=== PATIENT | male | born 1955 | race Caucasian/White ===

== ENCOUNTER 2016-08-22 12:06 | Inpatient (IN) | payer OTHER, MEDICARE ==
[~2016-08-22] VITALS: Ht 177.8 cm; Wt 83.9 kg
--- NOTE | 2016-08-22 12:15 | NUR ---
INFORMED WAITING PERFORMED.
--- NOTE | 2016-08-22 12:40 | NUR ---
PT TO TRIAGE WITH RIGHT LEG PAIN AND WEAKNESS SINCE MONDAY. PT HAS A HX OF MS AND WAS SEEN AT [facility], AND [facility] FOR THE SAME THIS WEEK. PT STATES HIS URINE HAS BEEN VERY DARK
--- NOTE | 2016-08-22 12:53 | NUR ---
PT'S SON WOULD LIKE TO SPEAK TO CASE MANAGEMENT STAFF REGARDING REHAB FACILITY FOR FATHER.
--- NOTE | 2016-08-22 13:16 | NUR ---
SON WHEELING PT OUTSIDED FOR CIGARETTE.
--- NOTE | 2016-08-22 15:13 | NUR ---
7533 CARE OF PATIENT ASSUMED. PT NEEDS TOTAL ASSISTANCE TO GET OUT OF WHEELCHAIR INTO THE STRETCHER. PT FOUND TO HAVE LARGE AREA OF REDNESS ON RIGHT GROIN. HOT TO TOUCH. IV PLACED, BLOOD CULTURES DONE. NS INFUSED. SON AT BEDSIDE.
--- NOTE | 2016-08-22 15:20 | ED GENERAL ADULT ---
History of Present Illness General Chief Complaint: General Adult Stated Complaint: BIBA FOR MS FLARE UP IN R LEG Source: patient Exam Limitations: poor historian Vital Signs & Intake/Output Vital Signs & Intake/Output Vital Signs Date Time Temp Pulse Resp B/P B/P Pulse O2 O2 Flow FiO2 Mean Ox Delivery Rate 08/22 2107 99 Nasal 3.0L Cannula 08/22 1622 99.9 101 18 140/71 96 Room Air 08/22 1444 101.3 128 20 153/79 Room Air 08/22 1238 98.5 128 16 149/76 98 Room Air Room Air Allergies Coded Allergies: No Known Allergies (08/22/16) Reconcile Medications Baclofen 10 MG TABLET 1 TAB PO 4 TIMES/DAY MUSCLE SPASMS (Reported) Triage Note: PT TO TRIAGE WITH RIGHT LEG PAIN AND WEAKNESS SINCE MONDAY. PT HAS A HX OF MS AND WAS SEEN AT [facility], AND [place] FOR THE SAME THIS WEEK. PT STATES HIS URINE HAS BEEN VERY DARK Triage Nurses Notes Reviewed? yes Onset: Abrupt Duration: day(s):, constant, continues in ED, getting worse Timing: recent history Injury Environment: home No Modifying Factors: none HPI: 60-year-old male comes into the emergency room for further evaluation of MS exacerbation. Patient denies any other past medical history. He's been increasingly weak recently. He was seen at [facility] on Monday night. Patient was given a dose of steroids as well as some Valium and sent home and told to follow-up at [facility]. He spoke with his MS doctor who told him to come to the hospital. Denies any cough chills fever. Upon review of systems patient did complain of some pain to his right upper leg Which has been going on recently. (NAVIN STROUD) Past History Travel History Traveled to [place] past 21 day No Medical History Any Pertinent Medical History? 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 No (NAVIN STROUD) Review of Systems Review of Systems Constitutional: Reports: see HPI. EENTM: Reports: no symptoms. Respiratory: Reports: no symptoms. Cardiovascular: Reports: no symptoms. GI: Reports: no symptoms. Genitourinary: Reports: no symptoms. Musculoskeletal: Reports: see HPI. Skin: Reports: see HPI. Neurological/Psychological: Reports: no symptoms. Hematologic/Endocrine: Reports: no symptoms. Immunologic/Allergic: Reports: no symptoms. All Other Systems: Reviewed and Negative (NAVIN STROUD) Physical Exam Physical Exam General Appearance: alert, awake, moderate distress Head: atraumatic Eyes: Bilateral: normal appearance. Ears, Nose, Throat: normal pharynx, normal ENT inspection Neck: normal inspection Respiratory: normal breath sounds, no respiratory distress Cardiovascular: tachycardia Gastrointestinal: soft, non-tender Neurologic/Psych: awake, alert, oriented x 3 Skin: rash, PATIENT HAS SEVERE ERYTHEMA AND WARMTH TO RIGHT INNER THIGH EXTENDING UP TO INTO HIS RIGHT GROIN WELL HIS TESTICLES, TENDERNESS WITH PALPATION, WELL DEMARCATED BORDERS, Lymphatic: inguinal node tender (R) Core Measures ACS in differential dx? No CVA/TIA Diagnosis: No Severe Sepsis Present: No Septic Shock Present: No (NAVIN STROUD) Progress Differential Diagnoses I considered the following diagnoses in my evaluation of the patient: Cellulitis, necrotizing fasciitis, pedro gangrene, sepsis, Plan of Care: Orders Procedure Date/time Status Nothing by Mouth 08/23 B Active PHOSPHORUS 08/23 06 Active HEPATIC FUNCTION PANEL 08/23 06 Active CBC WITHOUT DIFFERENTIAL 08/23 06 Active BASIC ELECTROLYTES PLUS BUN&CR 08/23 06 Active VRE ACTIVE SURVIELLANCE 08/22 2118 Active ACTIVE SURVEILLANCE NARES 08/22 2118 Active Wound Care/Dressing 08/22 2105 Active Weight 08/22 2105 Active VTE Mechanical Prophylaxis 08/22 2105 Active Vital Signs 08/22 2105 Active Turn and Reposition 08/22 2105 Active Drains/Tubes 08/22 2105 Active Teach/Educate 08/22 2105 Active Skin Integrity Protocol 08/22 2105 Active Skin/Pressure Ulcer Assess (Sk 08/22 2105 Active Precautions 08/22 2105 Active Pain Treatment and Response 08/22 2105 Active Nutritional Intake, Monitor 08/22 2105 Active Isolation 08/22 2105 Active CIWA 08/22 2105 Active Patient Care Conference 08/22 2105 Active Activity/Ambulation 08/22 2105 Active PROTHROMBIN TIME 08/22 2049 Active FIBRIN SPLIT PRODUCTS 08/22 2049 Active FIBRINOGEN LEVEL 08/22 2049 Active D-DIMER 08/22 2049 Active ICU LAB BUNDLE 08/22 1954 Active CBC WITHOUT DIFFERENTIAL 08/22 1954 Active ARTERIAL BLOOD GAS (GEN) 08/22 1953 Active CULTURE,URINE 08/22 184 Active MISCELLANEOUS OR SPEC 08/22 184 Active LACTIC ACID 08/22 174 Active Lab Add-on Test 08/22 174 Active Pathway - chart 08/22 165 Active House Staff 08/22 165 Active Patient Data 08/22 165 Active Code Status 08/22 165 Active EKG 08/22 164 Active TYPE & SCREEN (NOT X-MATCH) 08/22 164 Complete Intake & Output 08/22 1630 Active Add-on Test (ER Only) 08/22 1625 Active PARTIAL THROMBOPLASTIN TIME 08/22 1454 Complete PROTHROMBIN TIME 08/22 1454 Complete PHOSPHORUS 08/22 1454 Complete MAGNESIUM 08/22 1454 Complete ETHANOL 08/22 1454 Complete C-REACTIVE PROTEIN 08/22 1454 Complete BLOOD CULTURE 08/22 1442 Active LACTIC ACID 08/22 1442 Complete URINALYSIS 08/22 1303 Complete COMPREHENSIVE METABOLIC PANEL 08/22 1240 Complete CBC WITHOUT DIFFERENTIAL 08/22 1240 Complete Lab Add-on Test 08/22 UNK Active VTE Mechanical Prophylaxis 08/22 UNK Complete Restraint- Medical 08/22 UNK Complete CIWA 08/22 UNK Active Current Medications Sig/Newton Start time Last Medication Dose Stop Time Status Admin Vancomycin HCl 1,000 MG DAILY 08/23 1000 CAN Sodium Chloride 250 ML (Normal Saline 0.9%) Meropenem 1 GM IQ8 08/23 0000 AC (MEROPENEM) Vancomycin HCl 1,000 MG Q12 08/22 2200 AC Sodium Chloride 250 ML (Normal Saline 0.9%) Pantoprazole Sodium 40 MG DAILY 08/22 2048 UNVr (Protonix) Laboratory Tests 08/22/162019: pH 7.35, pCO2 37, pO2 96, HCO3 20 L, ABG O2 Sat (Measured) 95.0 L, P-50 (Temp Corrected) N, Carboxyhemoglobin 1.5, O2 Concentration % 50%, Temperature 97.8, O2 Delivery Method ESPRIT, Vent Mode CPAP, Expiratory Pressure 5, Pressure Support 6, Phlebotomy Draw Site [place] 08/22/16 1510: Urinalysis MOD H, Urine Color ORANG H, Urine Clarity HAZY H, Urine pH 6.0, Ur Specific Buhl 1.025, Urine Protein 100 H, Urine Ketones 15 H, Urine Nitrite NEG, Urine Bilirubin NEG@ICTO, Urine Urobilinogen >=8.0 H, Ur Leukocyte Esterase NEG, Ur Microscopic SEDIMENT EXAMINED, Urine RBC 10-15 H, Urine WBC RARE, Ur Epithelial Cells RARE, Urine Bacteria FEW H, Urine Mucus MOD H, Urine Hemoglobin MOD H, Urine Glucose NEG 08/22/16 1454: Lactic Acid 1.4 08/22/16 1454: Anion Gap 11, Estimated GFR > 60, BUN/Creatinine Ratio 21.4, Glucose 106 H, Calcium 8.6, Phosphorus 2.3 L, Magnesium 1.8, Total Bilirubin 3.7 H, AST 103 H, ALT 144 H, Alkaline Phosphatase 108, C-Reactive Prot, Quant > 9.0 H, Total Protein 6.7, Albumin 3.6, Globulin 3.1, Albumin/Globulin Ratio 1.2, PT 13.1 H, INR 1.25 H, APTT 30, CBC w Diff MAN DIFF ORDERED, RBC 5.86, MCV 79.6 L, MCH 26.8 L, RDW 14.2, MPV 8.4, Gran % 95.2 H, Lymphocytes % 1.5 L, Monocytes % 3.3, Eosinophils % 0, Basophils % 0 L, Absolute Granulocytes 16.9 H, Segmented Neutrophils 84 H, Band Neutrophils 9 H, Absolute Lymphocytes 0.3 L, Lymphocytes 3 L, Monocytes 4, Absolute Monocytes 0.6, Absolute Eosinophils 0, Absolute Basophils 0, Platelet Estimate DECREASED, Hypochromic-Microcytic 1+, Microcytic Cells 1+, PUBS MCHC 33.7, Serum Alcohol < 10.0 Microbiology 08/22 2118 UPPER RESP: Surveillance Culture - ORD 08/22 2118 GI: Surveillance Culture - ORD 08/22 1854 MISC O.R.: Miscellaneous Culture - RECD 08/22 1854 MISC O.R.: Gram Stain - RECD 08/22 184 URINE ROUT: Urine Culture - RECD 08/22 1500 BLOOD: Blood Culture - RECD 08/22 1454 BLOOD: Blood Culture - RECD PATIENT SEEN AND EVALUATED WITH PA AT BEDSIDE. CLINICAL PICTURE/EXAM CONSISTENT WITH PEDRO'S. CT SCAN PENDING. BROAD SPECTRUM AB ORDERED. CT C/W AIR IN TISSUES. DR BECKER CONSULTED. TO GO TO OR FOR DEBRIDEMENT. (NEO DYE,ELI) Diagnostic Imaging: Viewed by Me: CT Scan. Discussed w/RAD: CT Scan. Radiology Impression: SERVICE DATE: 08/22/16 EXAM TYPE: CAT - CT PELVIS W IV CONTRAST EXAMINATION: CT PELVIS WITH IV CONTRAST CLINICAL INFORMATION: Pain, swelling and redness. Evaluate for abscess of right groin. COMPARISON: None TECHNIQUE: Multidetector CT imaging of the pelvis (and thighs) is performed from the level of the top of the iliac crests to the knees with intravenous administration of 94 mL of Optiray 320 nonionic contrast material. DLP: 406 mGy- cm FINDINGS: Pelvis: Atherosclerotic calcification of the visualized abdominal aorta and iliac arteries without aneurysm. No pathologic sized iliac lymph nodes. Mildly enlarged right inguinal lymph nodes measure up to 1 cm short axis dimension. The visualized loops of bowel are normal in size. No pelvic free fluid. Prostate gland, which has central calcification, is normal in size. Urinary bladder has normal wall thickness. Intervertebral chondrocalcinosis at L4-L5 and L5-S1 with vacuum disc degeneration of L5-S1. There is chondrocalcinosis of the minimally degenerated pubic symphysis and hips. No hip joint effusion. Thighs: The external iliac, common femoral, superficial femoral and profunda femoris arteries are widely patent. Scattered calcific atherosclerotic plaque of the right femoral artery produces mild, irregular luminal narrowing. No evidence of focal high-grade femoral or popliteal artery stenosis. There is skin thickening, subcutaneous tissue edema and subcutaneous gas of the proximal, medial right thigh extending to the right gluteal fold, posteriorly, overlying the distal right gluteus dash muscle. There is no evidence of extension of the inflammatory process into the deep, intramuscular tissues. The soft tissue emphysema is seen in a region that measures up to 5.5 cm craniocaudal and 14.2 cm AP. No focal, rim-enhancing fluid collection. The femurs are intact; no osseous erosion or periostitis. There are bone islands of each proximal femur. IMPRESSION: Skin thickening, subcutaneous tissue edema and emphysema of the medial right thigh. Findings suggest presence of cellulitis and necrotizing fasciitis. There is no focal, walled off fluid collection. Mild reactive lymphadenopathy is present in the right groin. Note: Critical findings discussed by telephone with Navin Dawkins at 4:30 PM. 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 Transport To: [facility] (NAVIN STROUD) PA/REAL ESTATE SPECIALIST Co-Sign Statement Statement: ED Attending supervision documentation- [X] I saw and evaluated the patient. I have also reviewed all the pertinent lab results and diagnostic results. I agree with the findings and the plan of care as documented in the PA's/REAL ESTATE SPECIALIST's documentation. [X] I have reviewed the ED Record and agree with the PA's/REAL ESTATE SPECIALIST's documentation. [] Additions or exceptions (if any) to the PAs/REAL ESTATE SPECIALIST's note and plan are summarized below: [] (ELI LARSON MD) Critical Care Note Critical Care Note Critical Care Time: 30-74 min (60) (NAVIN STROUD)
[2016-08-22 15:35] LABS: ABSOLUTE BASOPHIL COUNT 0 /CUMM (0.0-0.2); ABSOLUTE EOSINOPHIL COUNT 0 /CUMM (0.0-0.7); ABSOLUTE GRANULOCYTE CT 16.9 /CUMM (1.4-6.5); ABSOLUTE LYMPH COUNT 0.3 /CUMM (1.2-3.4); ABSOLUTE MONOCYTE COUNT 0.6 /CUMM (0.10-0.60); BASOPHIL % 0 % (0.0-2.0); EOSINOPHIL % 0 % (0-5); GRANULOCYTE % 95.2 % (42.2-75.2); HEMATOCRIT 46.7 % (42-52); MEAN CORPUSCULAR HGB 26.8 PG (27.0-31.0); MEAN CORPUSCULAR HGB CONC 33.7 G/DL (33.0-37.0); MEAN CORPUSCULAR VOLUME 79.6 FL (80.0-94.0); MEAN PLATELET VOLUME 8.4 FL (7.4-10.4); RBC DISTRIBUTION WIDTH 14.2 % (11.5-14.5); RED BLOOD CELL CT 5.86 /CUMM (4.70-6.10); WHITE BLOOD CELL COUNT 17.8 /CUMM (4.8-10.8)
[2016-08-22] MEDS ORDERED: BACLOFEN10 M1 PO (15:47)
[2016-08-22 15:53] LABS: PLATELET COUNT 31 /CUMM (130-400)
--- NOTE | 2016-08-22 16:24 | NUR ---
PATIENT RESTING QUIETLY AND OFFERS NO C/O. IVF ARE INFUSING W/O DIFFICULTY. MONITOR FOR CHANGES IN STATUS.
--- NOTE | 2016-08-22 16:37 | CT SCAN REPORT ---
EXAMINATION: CT PELVIS WITH IV CONTRAST CLINICAL INFORMATION: Pain, swelling and redness. Evaluate for abscess of right groin. COMPARISON: None TECHNIQUE: Multidetector CT imaging of the pelvis (and thighs) is performed from the level of the top of the iliac crests to the knees with intravenous administration of 94 mL of Optiray 320 nonionic contrast material. DLP: 406 mGy-cm FINDINGS: Pelvis: Atherosclerotic calcification of the visualized abdominal aorta and iliac arteries without aneurysm. No pathologic sized iliac lymph nodes. Mildly enlarged right inguinal lymph nodes measure up to 1 cm short axis dimension. The visualized loops of bowel are normal in size. No pelvic free fluid. Prostate gland, which has central calcification, is normal in size. Urinary bladder has normal wall thickness. Intervertebral chondrocalcinosis at L4-L5 and L5-S1 with vacuum disc degeneration of L5-S1. There is chondrocalcinosis of the minimally degenerated pubic symphysis and hips. No hip joint effusion. Thighs: The external iliac, common femoral, superficial femoral and profunda femoris arteries are widely patent. Scattered calcific atherosclerotic plaque of the right femoral artery produces mild, irregular luminal narrowing. No evidence of focal high-grade femoral or popliteal artery stenosis. There is skin thickening, subcutaneous tissue edema and subcutaneous gas of the proximal, medial right thigh extending to the right gluteal fold, posteriorly, overlying the distal right gluteus dash muscle. There is no evidence of extension of the inflammatory process into the deep, intramuscular tissues. The soft tissue emphysema is seen in a region that measures up to 5.5 cm craniocaudal and 14.2 cm AP. No focal, rim-enhancing fluid collection. The femurs are intact; no osseous erosion or periostitis. There are bone islands of each proximal femur. IMPRESSION: Skin thickening, subcutaneous tissue edema and emphysema of the medial right thigh. Findings suggest presence of cellulitis and necrotizing fasciitis. There is no focal, walled off fluid collection. Mild reactive lymphadenopathy is present in the right groin. Note: Critical findings discussed by telephone with Talha Dawkins at 4:30 PM.
[2016-08-22 16:52] LABS: PT 13.1 SEC (9.4-12.5); PTT 30 SEC (25-37)
--- NOTE | 2016-08-22 16:56 | History & Physical ---
NIKKI GORDON MD 08/22/16 4396: General Information and HPI MD Statement: I have seen and personally examined SANDRA PANIAGUA and documented this H&P. The patient is a 60 year old M who presented with a patient stated chief complaint of [bilateral leg weakness]. Source of Information: patient, old records History of Present Illness: Patient is a 60-year-old male with a past medical history of multiple sclerosis follows up with Dr. Novoa presented to the [facility] with bilateral leg weakness and stiffness. The patient's symptoms started on Monday when his leg was more week and he went to [facility] and the liver there was treated with IV Solu-Medrol for MS exacerbation and was given prednisone taper and instructions to follow-up with Dr. Ray and [facility]. The son was then brought in to the hospital by his son for bilateral leg weakness. On further examination it was noted that the patient GROIN had right- sided groin redness and swelling. The right side groin also had a pimple which had purulent and gas coming out on pressing. The patient also noted shakes and chills on Monday morning but did not seek any medical advice. The patient denies any recent trauma to the groin, or did not seek any discharge. 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 Home Services at Home: None Primary Language: French Smoking Status: Never Smoked ETOH Use: alcoholic, drinks 6 packs a day Illicit Drug Use: denies illicit drug use Review of Systems Review of Systems Constitutional: Reports: see HPI. Cardiovascular: Reports: see HPI. GI: Denies: diarrhea, bowel incontinence, melena, nausea, bloody stool. Genitourinary: Denies: dysuria, frequency, hematuria, hesitation, nocturia. Skin: Reports: change in skin color, change in hair/nails, erythema, rash. Exam & Diagnostic Data Last 24 Hrs of Vital Signs/I&O Vital Signs Date Time Temp Pulse Resp B/P B/P Pulse O2 O2 Flow FiO2 Mean Ox Delivery Rate 08/22 1622 99.9 101 18 140/71 96 Room Air 08/22 1444 101.3 128 20 153/79 Room Air 08/22 1238 98.5 128 16 149/76 98 Room Air Room Air Intake & Output 08/22 1600 08/22 0800 08/22 0000 Intake Total Output Total Balance Patient 185 lb Weight Weight Reported by Patient Measurement Method Physical Exam General Appearance Alert, Oriented X3, Cooperative Skin right inner thigh redness and swelling with purulent discharge Skin Temp/Moisture Exam: Warm/Dry HEENT Atraumatic, PERRLA Neck Supple, No JVD Lymphatic Axillary nl, Cervical nl Cardiovascular Regular Rate, Normal S1, Normal S2 Lungs bilateral decreased airway entry Abdomen Normal Bowel Sounds, Soft, the patient in her right groin area looks red and inflamed with purulent discharge on pressure bubbles of air could be seen Assessment/Plan Assessment: This is a 60-year-old male with a past medical history of multiple sclerosis who presented to the [facility] emergency department after having given IV Solu-Medrol and prednisone taper and [facility] 2 days back for MS exacerbation. The patient did not complain of groin pain on initial presentation but was found to have necrotizing fasciitis on clinical and radiologicall findings Vitals at the time of admission showed blood pressure of 140/71, temperature of 101.3, heart rate of 101, respiration rate of 50, saturation of 95% on room air Labs shows WBC of 17,000 with bands of 9,, normal hemoglobin and hematocrit, low platelets of 31,000 normal creatinine AST alt elevated [address] abdomen pelvis showed Skin thickening, subcutaneous tissue edema and emphysema of the medial right thigh. Findings suggest presence of cellulitis and necrotizing fasciitis. There is no focal, walled off fluid collection. Mild reactive lymphadenopathy is present in the right groin. Assessment 1. Acute necrotizing fasciitis most likely type I and polymicrobial in origin. The initial coverage should include anaerobi, anaerobic and gram-negative organisms. To be noted that the patient has 5 of 6 poor prognostic markers for necrotizing fasciitis including thrombocytopenia, leukocytosis, transaminitis, and hyponatremia 2. History of multiple sclerosis 3. Alcohol dependence 4. History of MS Plan Admit the patient to ICU for closer hemodynamic monitoring The patient needs to be transferred to or and needs emergent debridement. Case discussed with Dr. Hernandez who will take the patient to OR Case discussed with the surgical PA the patient would be returned to ICU after the OR. The patient would require IV pressors if becomes hypotensive and prophylactically right IJ would be placed Re: Antibiotics coverage the patient needs coverage for anaerobic, aerobic gram- positive and gram-negative organisms. Patient received IV Unasyn IV clindamycin in the ER. We would continue with IV vancomycin and IV meropenem Watch for acute delirium tremens secondary to call withdrawal. 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 Necrotizing fasciitis Core Measures/Miscellaneous Acute Coronary Syndrome ACS Diagnosis: No Cerebrovascular Accident CVA/TIA Diagnosis: No Congestive Heart Failure CHF Diagnosis: No Venous Thromboembolism VTE Risk Factors: Acute medical illness, Age > 40 [facility] prophylaxis d/t: No contraindications No VTE Pharm Prophylaxis d/t: No contraindications VTE Diagnosis: No VTE Type: NONE VTE Confirmed by (Test): NONE Severe Sepsis Severe Sepsis Present: No Septic Shock Septic Shock Present: No Miscellaneous Documentation Attending Case Discussed With: dr barth Primary Care Physician: GREY ALANIZ MD Patient sees these Specialists dr mendoza Level of Patient Care: Critical Care (CRI) RUTHIE BARTH MD 08/22/16 2015: Attending MD Review Statement Attending Statement Attending MD Statement: examined this patient, discuss w/resident/PA/LAWN MOWER REPAIRER, agreed w/resident/PA/LAWN MOWER REPAIRER, reviewed EMR data (avail) Attending Assessment/Plan: 60M PMH multiple sclerosis, presenting initially with complaints of bilateral leg pain with right leg weakness, found to have Pedro's gangrene almost incidentally. Did not complain of pain or discomfort of the groin, but inspection revealed an open ulcer, with CT pelvis showing inflammation and gas in the upper thigh. Taken to OR by Dr. Hernandez for I&D. Febrile 101, WBC 17.8, platelets 30k. Lactate and BUN/Cr normal. Given Unasyn in ED. Gave him Vancomycin and Meropenem. Seen by ID already. Hemodynamically stable at this time. Has right leg strength 1/5. Will require eventual neurology consult, in addition to ID and surgery. RIJ central line placed. Plan - Admit to ICU - Start Vancomycin and Meropenem - ID, surgery, neurology consult - Follow blood and wound cultures - Monitor platelets - IV hydration - Critical care consult - DVT PPx
--- NOTE | 2016-08-22 17:04 | NUR ---
PT RECEIVING CLYNDA IV
--- NOTE | 2016-08-22 17:04 | NUR ---
SURGICAL PA IN ROOM FOR EVAL. HOUSE STAFF IN ROOM
--- NOTE | 2016-08-22 17:12 | RADIOLOGY REPORT ---
EXAMINATION: XR PORTABLE CHEST CLINICAL INFORMATION: Preoperative COMPARISON: None TECHNIQUE: Portable frontal view of the chest was obtained. FINDINGS: The lungs are well expanded with mild elevation of the right hemidiaphragm. No consolidation, edema, or effusion. No pneumothorax. The cardiomediastinal silhouette is within normal limits. No acute osseous abnormality. IMPRESSION: No acute pulmonary findings.
--- NOTE | 2016-08-22 17:20 | NUR ---
PREOPERATIVE SKIN PRPARATION COMPLETED
--- NOTE | 2016-08-22 17:21 | NUR ---
PT ABCESS TO RIGHT GROIN BEGAN HAVING YELLOW/BROWN PURULANT DRAINAGE
--- NOTE | 2016-08-22 17:32 | NUR ---
IV [facility] INFUSING PT TO OR
--- NOTE | 2016-08-22 17:37 | NUR ---
TYPE AND SCREEN DRAWN AND SENT BY THIS MST.
--- NOTE | 2016-08-22 17:40 | NUR ---
SON ABBEY AWARE PT WENT TO OR AND WILL TRANSFER TO ICU AFTER PROCEDURE
--- NOTE | 2016-08-22 17:42 | Cons- General Surgery ---
HECTOR BAEZA 08/22/16 1733: General Information and HPI Consulting Request Date of Consult: 08/22/16 Requested By: LARY DYE History of Present Illness: Mr. Mcgee is a 60 year old male with a past medical history significant for Multiple Sclerosis. He presented to the ER this afternoon with complaints of malaise, nausea, vomitting, chills, and right proximal leg/groin pain that was more pronounced one day ago. Two days prior to this admission, he was evaluated at a different facility for leg pain that was located more distally, he was treated for an exacerbation of his MS with a steroid and muscle relaxer and was given instructions to follow up as an outpatient with his primary MS care provider. However, as his symptoms progressed with a more systemic manifestation, and the location became more proximal, he was encouraged by his son to seek treatment here in our emergency department. 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 EENTM: Reports: no symptoms. Cardiovascular: Reports: no symptoms. Respiratory: Reports: no symptoms. GI: Reports: vomiting. Genitourinary: Reports: pain. Musculoskeletal: Reports: muscle stiffness. Skin: Reports: change in skin color, erythema, lesions. Neurological/Psychological: Reports: tremors. Hematologic/Endocrine: Reports: no symptoms. Immunologic/Allergic: Reports: other (Multiple Sclerosis). Exam & Diagnostic Data Vital Signs and I&O Vital Signs Date Time Temp Pulse Resp B/P B/P Pulse O2 O2 Flow FiO2 Mean Ox Delivery Rate 08/22 1622 99.9 101 18 140/71 96 Room Air 08/22 1444 101.3 128 20 153/79 Room Air 08/22 1238 98.5 128 16 149/76 98 Room Air Room Air Intake & Output 08/22 1600 08/22 0800 08/22 0000 08/21 1600 08/21 0800 08/21 0000 Intake Total Output Total Balance Patient 185 lb Weight Weight Reported by Patient Measurement Method Physical Exam: General: Alert and oriented x3, no acute distress Assessment/Plan Consult Acknowledgment - Thank you for your consult request. CHANDRA BECKER MD 08/22/16 1931: Exam & Diagnostic Data Last 24 Hours of Labs: Laboratory Tests 08/22 08/22 1510 1454 Chemistry Lactic Acid (0.7 - 2.1 mmol/L) 1.4 Urines Urinalysis MOD H Urine Color (YEL,AMB,STR) ORANG H Urine Clarity (CLEAR) HAZY H Urine pH (5.0 - 8.0) 6.0 Ur Specific [place] (1.001 - 1.035) 1.025 Urine Protein (NEG,<30 MG/DL) 100 H Urine Ketones (NEG) 15 H Urine Nitrite (NEG) NEG Urine Bilirubin (NEG) NEG@ICTO Urine Urobilinogen (0.1 - 1.0 EU/dl) >=8.0 H Ur Leukocyte Esterase (NEG) NEG Ur Microscopic SEDIMENT EXAMINED Urine RBC (0 - 5 /HPF) 10-15 H Urine WBC (0 - 2 /HPF) RARE Ur Epithelial Cells (NONE,FEW) RARE Urine Bacteria (NEG/NONE) FEW H Urine Mucus (FEW,NONE) MOD H Urine Hemoglobin (NEG) MOD H Urine Glucose (N MG/DL) NEG 08/22 1454 Chemistry Sodium (137 - 145 mmol/L) 133 L Potassium (3.5 - 5.1 mmol/L) 3.4 L Chloride (98 - 107 mmol/L) 100 Carbon Dioxide (22 - 30 mmol/L) 22 Anion Gap (5 - 16) 11 BUN (9 - 20 mg/dL) 15 Creatinine (0.7 - 1.2 mg/dL) 0.7 Estimated GFR (>60 ml/min) > 60 BUN/Creatinine Ratio (7 - 25 %) 21.4 Glucose (65 - 99 mg/dL) 106 H Calcium (8.4 - 10.2 mg/dL) 8.6 Phosphorus (2.5 - 4.5 mg/dL) 2.3 L Magnesium (1.6 - 2.3 mg/dL) 1.8 Total Bilirubin (0.2 - 1.3 mg/dL) 3.7 H AST (17 - 59 U/L) 103 H ALT (21 - 72 U/L) 144 H Alkaline Phosphatase (< 127 U/L) 108 C-Reactive Prot, Quant (<1.0 mg/dL) > 9.0 H Total Protein (6.3 - 8.2 g/dL) 6.7 Albumin (3.5 - 5.0 g/dL) 3.6 Globulin (1.9 - 4.2 gm/dL) 3.1 Albumin/Globulin Ratio (1.1 - 2.2 %) 1.2 Coagulation PT (9.4 - 12.5 SEC) 13.1 H INR (0.90 - 1.17) 1.25 H APTT (25 - 37 SEC) 30 Hematology CBC w Diff MAN DIFF ORDERED WBC (4.8 - 10.8 /CUMM) 17.8 H RBC (4.70 - 6.10 /CUMM) 5.86 Hgb (14.0 - 18.0 G/DL) 15.7 Hct (42 - 52 %) 46.7 MCV (80.0 - 94.0 FL) 79.6 L MCH (27.0 - 31.0 PG) 26.8 L RDW (11.5 - 14.5 %) 14.2 Plt Count (130 - 400 /CUMM) 31 L MPV (7.4 - 10.4 FL) 8.4 Gran % (42.2 - 75.2 %) 95.2 H Lymphocytes % (20.5 - 51.1 %) 1.5 L Monocytes % (1.7 - 9.3 %) 3.3 Eosinophils % (0 - 5 %) 0 Basophils % (0.0 - 2.0 %) 0 L Absolute Granulocytes (1.4 - 6.5 /CUMM) 16.9 H Segmented Neutrophils (42.2 - 75.2 %) 84 H Band Neutrophils (0.0 - 5.0 %) 9 H Absolute Lymphocytes (1.2 - 3.4 /CUMM) 0.3 L Lymphocytes (20.5 - 51.1 %) 3 L Monocytes (1.7 - 9.3 %) 4 Absolute Monocytes (0.10 - 0.60 /CUMM) 0.6 Absolute Eosinophils (0.0 - 0.7 /CUMM) 0 Absolute Basophils (0.0 - 0.2 /CUMM) 0 Platelet Estimate (ADEQUATE) DECREASED Hypochromic-Microcytic 1+ Microcytic Cells 1+ PUBS MCHC (33.0 - 37.0 G/DL) 33.7 Toxicology Serum Alcohol (<10 MG/DL) < 10.0 Imaging Results: CT pelvis and thigh images viewed. Findings show inflammatory changes of the right inguinal region subcutaneous gas tracking from inguinal canal to perianal tissues and down to the right thigh. 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 His signs and symptoms of systemic sepsis and will be taken to the operating room emergently for debridement. He was given broad-spectrum antibiotics in the ER preoperatively and resuscitated with 3 L of IV fluids. He is informed of the risks and morbidity related to the surgery including a large open wound which will take months to heal. He also understands there may be multiple trips to the operating room for further debridement pending his clinical course. Copies To: SHARON DYE,PINO King; CORBIN DYE,GREY Mack. Consult Acknowledgment - Thank you for your consult request. 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
--- NOTE | 2016-08-22 17:51 | Cons- Infect Disease ---
General Information and HPI Consulting Request Date of Consult: 08/22/16 Requested By: Dr. Chance Reason for Consult: Necrotizing fasciitis Source of Information: patient History of Present Illness: This is a 60-year-old man with a history of multiple sclerosis, currently on no treatment, seen in the [facility] emergency room 3 days prior to admission because of the acute onset of pain in the right inner thigh, which he thought was a pimple, and difficulty walking, apparently treated with Solumedrol and discharged on prednisone for a presumed flareup of his multiple sclerosis, who presented to the emergency room this afternoon because of increasing right leg pain. On examination he was febrile to 101.3 and was found to have a large area of erythema in the right groin. Laboratory data revealed a white blood cell count of 18,000, with 84 segs and 9 bands, BUN/creatinine 15 and 0.7, bilirubin 3.7, AST/ALT 103 and 144, INR 1.25/PTT normal. Urinalysis 10-15 RBC/rare WBCs. CT of the pelvis revealed skin thickening, subcutaneous tissue edema and subcutaneous gas in the proximal, medial right thigh extending to the right gluteal fold posteriorly, overlying the distal right gluteus dash muscle. Chest x-ray was negative. He was given doses of Unasyn, Clindamycin and Vancomycin and is being taken to the OR for debridement/drainage. 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 Surgical History Surgical History: s/p several disc surgeries Psychosocial History ETOH Use: alcoholic Illicit Drug Use: denies illicit drug use Review of Systems Review of Systems All Other Systems: Reviewed and Negative Exam & Diagnostic Data Last 24 Hrs of Vital Signs/I&O Vital Signs Date Time Temp Pulse Resp B/P B/P Pulse O2 O2 Flow FiO2 Mean Ox Delivery Rate 08/22 1622 99.9 101 18 140/71 96 Room Air 08/22 1444 101.3 128 20 153/79 Room Air 08/22 1238 98.5 128 16 149/76 98 Room Air Room Air Intake & Output 08/22 1600 08/22 0800 08/22 0000 Intake Total Output Total Balance Patient 185 lb Weight Weight Reported by Patient Measurement Method Physical Exam Other Physical Findings: He is awake and alert in moderate distress secondary to pain. MAXIMUM TEMPERATURE 101.3. Skin no rash. HEENT exam is negative. Neck is supple with no adenopathy. Lungs are clear. Heart regular rhythm with no murmur. Abdomen is soft, nontender with positive bowel sounds. Back no CVA tenderness. Extremities erythema and induration of the right inner thigh, exquisitely tender to palpation, with a foul-smelling purulent drainage from an open wound in the medial thigh. Neuro is without focality. Last 24 Hours of Lab Results: Laboratory Tests 08/22 08/22 1510 1454 Chemistry Lactic Acid (0.7 - 2.1 mmol/L) 1.4 Urines Urinalysis MOD H Urine Color (YEL,AMB,STR) ORANG H Urine Clarity (CLEAR) HAZY H Urine pH (5.0 - 8.0) 6.0 Ur Specific [place] (1.001 - 1.035) 1.025 Urine Protein (NEG,<30 MG/DL) 100 H Urine Ketones (NEG) 15 H Urine Nitrite (NEG) NEG Urine Bilirubin (NEG) NEG@ICTO Urine Urobilinogen (0.1 - 1.0 EU/dl) >=8.0 H Ur Leukocyte Esterase (NEG) NEG Ur Microscopic SEDIMENT EXAMINED Urine RBC (0 - 5 /HPF) 10-15 H Urine WBC (0 - 2 /HPF) RARE Ur Epithelial Cells (NONE,FEW) RARE Urine Bacteria (NEG/NONE) FEW H Urine Mucus (FEW,NONE) MOD H Urine Hemoglobin (NEG) MOD H Urine Glucose (N MG/DL) NEG 08/22 1454 Chemistry Sodium (137 - 145 mmol/L) 133 L Potassium (3.5 - 5.1 mmol/L) 3.4 L Chloride (98 - 107 mmol/L) 100 Carbon Dioxide (22 - 30 mmol/L) 22 Anion Gap (5 - 16) 11 BUN (9 - 20 mg/dL) 15 Creatinine (0.7 - 1.2 mg/dL) 0.7 Estimated GFR (>60 ml/min) > 60 BUN/Creatinine Ratio (7 - 25 %) 21.4 Glucose (65 - 99 mg/dL) 106 H Calcium (8.4 - 10.2 mg/dL) 8.6 Total Bilirubin (0.2 - 1.3 mg/dL) 3.7 H AST (17 - 59 U/L) 103 H ALT (21 - 72 U/L) 144 H Alkaline Phosphatase (< 127 U/L) 108 Total Protein (6.3 - 8.2 g/dL) 6.7 Albumin (3.5 - 5.0 g/dL) 3.6 Globulin (1.9 - 4.2 gm/dL) 3.1 Albumin/Globulin Ratio (1.1 - 2.2 %) 1.2 Coagulation PT (9.4 - 12.5 SEC) 13.1 H INR (0.90 - 1.17) 1.25 H APTT (25 - 37 SEC) 30 Hematology CBC w Diff MAN DIFF ORDERED WBC (4.8 - 10.8 /CUMM) 17.8 H RBC (4.70 - 6.10 /CUMM) 5.86 Hgb (14.0 - 18.0 G/DL) 15.7 Hct (42 - 52 %) 46.7 MCV (80.0 - 94.0 FL) 79.6 L MCH (27.0 - 31.0 PG) 26.8 L RDW (11.5 - 14.5 %) 14.2 Plt Count (130 - 400 /CUMM) 31 L MPV (7.4 - 10.4 FL) 8.4 Gran % (42.2 - 75.2 %) 95.2 H Lymphocytes % (20.5 - 51.1 %) 1.5 L Monocytes % (1.7 - 9.3 %) 3.3 Eosinophils % (0 - 5 %) 0 Basophils % (0.0 - 2.0 %) 0 L Absolute Granulocytes (1.4 - 6.5 /CUMM) 16.9 H Segmented Neutrophils (42.2 - 75.2 %) 84 H Band Neutrophils (0.0 - 5.0 %) 9 H Absolute Lymphocytes (1.2 - 3.4 /CUMM) 0.3 L Lymphocytes (20.5 - 51.1 %) 3 L Monocytes (1.7 - 9.3 %) 4 Absolute Monocytes (0.10 - 0.60 /CUMM) 0.6 Absolute Eosinophils (0.0 - 0.7 /CUMM) 0 Absolute Basophils (0.0 - 0.2 /CUMM) 0 Platelet Estimate (ADEQUATE) DECREASED Hypochromic-Microcytic 1+ Microcytic Cells 1+ PUBS MCHC (33.0 - 37.0 G/DL) 33.7 Last 24 Hours of [place] Results: Blood cultures August 22 pending Diagnostic Data Recent Imaging Findings: CT of the pelvis revealed skin thickening, subcutaneous tissue edema and subcutaneous gas in the proximal medial right thigh extending to the right gluteal fold posteriorly, overlying the distal right gluteus dash muscle. Chest x-ray negative. Assessment/Plan Assessment/Plan Impression: This is a 60-year-old man with multiple sclerosis, currently on no treatment, and chronic alcohol use admitted today with a four-day history of pain in the right groin, found to be febrile with a leukocytosis, with foul-smelling purulent drainage from a wound in the medial right thigh and with evidence on CT scan of subcutaneous tissue edema and emphysema of the proximal, medial right thigh extending to the right gluteal fold posteriorly. His clinical picture is suggestive of necrotizing fasciitis/Pedro's gangrene, and he is scheduled for the OR imminently for drainage and debridement. This process is likely polymicrobial, with Staph aureus, streptococci, anaerobes and gram negatives all possibly involved, and he needs to be covered with broad-spectrum antibiotics pending OR cultures. Note he does drink a significant amount of alcohol daily, but not in the past 3 days, and he will need to be watched for impending DTs. His elevated liver enzymes may be secondary to sepsis or to alcohol and can be followed. Suggestion: 1. Await OR for debridement/drainage 2. Watch for alcohol withdrawal 3. Follow-up OR cultures 4. Would treat with Meropenem 1 g IV every 8 hours and Vancomycin 1 g IV every 12 hours pending above Consult Acknowledgment - Thank you for your consult request.
--- NOTE | 2016-08-22 19:37 | Operative Report ---
Operative/Inv Procedure Report Surgery Date: 08/22/16 Name of Procedure: Debridement perineum, excisional skin, sq, fascia and muscle. Pre-Operative Diagnosis: Fourniers gangrene Post-Operative Diagnosis: Same Estimated Blood Loss: less than 50ml Surgeon/Fishing Vessel Mate: Jono Hernandez M.D./Noa NÚÑEZ Anesthesia: general endotracheal tube Microbiology: Fluid for culture Operative Indication: See consult Operative/Procedure Note Note: After consent is brought to the operating room and laid supine. Gen. anesthesia obtained and his placed in lithotomy position. His perineum was then prepped and draped. There is an open draining wound in the proximal right thigh. We probed the area and expressed 10 mL of brown purulence which was sent for culture. The area was then probed and incision made sharply longitudinally along the inguinal scrotal crease. There was necrotic skin and subcutaneous tissue, fascia and muscle. The entire area was sharply debrided down to healthy bleeding tissue. The wound was pulse lavaged with saline. Hemostasis which was achieved with direct pressure. Wound was reexplored and no further necrosis was seen. On the preoperative CT there was gas extending into his upper thigh. We explored that area but there is no evidence of necrosis spreading there. We also looked posteriorly along the gluteus and again there is no evidence of necrotic tissue there. Wound was then pulse lavage once more and packed with iodoform soaked Kerlix. Sterile dressings were applied. Patient tolerated procedure well was brought to the ICU intubated in stable condition CC: SHARON DYE,PINO King; CORBIN DYE,GREY Mack.
--- NOTE | 2016-08-22 20:16 | Admission Certification ---
Admission Certification Certification Statement - As attending physician, I certify that at the time of - admission, based on clinical presentation, severity of - symptoms, need for further diagnostic testing and - therapeutic interventions, and risk of adverse outcomes - without in-hospital treatment, in my clinical assessment, - this patient requires an acute hospital stay for a minimum - of two nights or longer. I have also considered psychsocial - factors such as support system, advanced age, financial - issues, cognitive issues, and failed out-patient treatments, - past re-admission history, safety of patient, and lack of - compliance as applicable. Specific rationale supporting this admission is: Necrotizing fasciitis of perineum
--- NOTE | 2016-08-22 20:20 | RADIOLOGY REPORT ---
EXAMINATION: XR PORTABLE CHEST CLINICAL INFORMATION: Endotracheal tube and Central line placement. COMPARISON: 08/22/2016 TECHNIQUE: Portable frontal view of the chest was obtained. FINDINGS: The endotracheal tube terminates 2 cm above the ramiro. Enteric tube courses below the diaphragm into the stomach. Right internal jugular central venous catheter terminates near the cavoatrial junction. Lung volumes are low with bibasilar atelectasis. No pneumothorax or pleural effusion. The cardiomediastinal silhouette is unchanged. No acute osseous abnormality. IMPRESSION: Endotracheal tube terminates 2 cm above the ramiro. Enteric tube extends into the stomach. Right internal jugular central venous catheter terminates near the cavoatrial junction. No pneumothorax.
--- NOTE | 2016-08-22 20:46 | Cons- CRCU ---
General Information and HPI Consulting Request Date of Consult: 08/22/16 Requested By: surg team History of Present Illness: This is a 60-year-old man with a history of multiple sclerosis, currently on no treatment, seen in the [facility] emergency room 3 days prior to admission because of the acute onset of pain in the right inner thigh, which he thought was a pimple, and difficulty walking, apparently treated with Solumedrol and discharged on prednisone for a presumed flareup of his multiple sclerosis, who presented to the emergency room this afternoon because of increasing right leg pain. On examination he was febrile to 101.3 and was found to have a large area of erythema in the right groin. Laboratory data revealed a white blood cell count of 18,000, with 84 segs and 9 bands, BUN/creatinine 15 and 0.7, bilirubin 3.7, AST/ALT 103 and 144, INR 1.25/PTT normal. Urinalysis 10-15 RBC/rare WBCs. CT of the pelvis revealed skin thickening, subcutaneous tissue edema and subcutaneous gas in the proximal, medial right thigh extending to the right gluteal fold posteriorly, overlying the distal right gluteus dash muscle. Chest x-ray was negative. He was given doses of Unasyn, Clindamycin and Vancomycin He was taken to the or and had a large I and d and now in the icu In the ICU he had significant amount of oral secretions posteriorly but he was more awake and wanted to be extubated. And I saw him he was afebrile her awake and oriented 3 Other review of symptoms could not be obtained as he was intubated Allergies/Medications Allergies: Coded Allergies: No Known Allergies (08/22/16) Home Med List: Baclofen 10 MG TABLET 1 TAB PO 4 TIMES/DAY MUSCLE SPASMS (Reported) Review of Systems Review of Systems Constitutional: Reports: see HPI. 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 Home Services at Home: None Primary Language: Moldovan Smoking Status: Never Smoked ETOH Use: alcoholic, drinks 6 packs a day Illicit Drug Use: denies illicit drug use Exam & Diagnostic Data Last 24 Hrs of Vital Signs/I&O Vital Signs Date Time Temp Pulse Resp B/P B/P Pulse O2 O2 Flow FiO2 Mean Ox Delivery Rate 08/22 1622 99.9 101 18 140/71 96 Room Air 08/22 1444 101.3 128 20 153/79 Room Air 08/22 1238 98.5 128 16 149/76 98 Room Air Room Air Intake & Output 08/22 1600 08/22 0800 08/22 0000 Intake Total Output Total Balance Patient 185 lb Weight Weight Reported by Patient Measurement Method Last 48 Hrs of Labs/Zacarias: Laboratory Tests 08/22/16 1510: Urinalysis MOD H, Urine Color ORANG H, Urine Clarity HAZY H, Urine pH 6.0, Ur Specific [place] 1.025, Urine Protein 100 H, Urine Ketones 15 H, Urine Nitrite NEG, Urine Bilirubin NEG@ICTO, Urine Urobilinogen >=8.0 H, Ur Leukocyte Esterase NEG, Ur Microscopic SEDIMENT EXAMINED, Urine RBC 10-15 H, Urine WBC RARE, Ur Epithelial Cells RARE, Urine Bacteria FEW H, Urine Mucus MOD H, Urine Hemoglobin MOD H, Urine Glucose NEG 08/22/16 1454: Lactic Acid 1.4 08/22/16 1454: Anion Gap 11, Estimated GFR > 60, BUN/Creatinine Ratio 21.4, Glucose 106 H, Calcium 8.6, Phosphorus 2.3 L, Magnesium 1.8, Total Bilirubin 3.7 H, AST 103 H, ALT 144 H, Alkaline Phosphatase 108, C-Reactive Prot, Quant > 9.0 H, Total Protein 6.7, Albumin 3.6, Globulin 3.1, Albumin/Globulin Ratio 1.2, PT 13.1 H, INR 1.25 H, APTT 30, CBC w Diff MAN DIFF ORDERED, RBC 5.86, MCV 79.6 L, MCH 26.8 L, RDW 14.2, MPV 8.4, Gran % 95.2 H, Lymphocytes % 1.5 L, Monocytes % 3.3, Eosinophils % 0, Basophils % 0 L, Absolute Granulocytes 16.9 H, Segmented Neutrophils 84 H, Band Neutrophils 9 H, Absolute Lymphocytes 0.3 L, Lymphocytes 3 L, Monocytes 4, Absolute Monocytes 0.6, Absolute Eosinophils 0, Absolute Basophils 0, Platelet Estimate DECREASED, Hypochromic-Microcytic 1+, Microcytic Cells 1+, PUBS MCHC 33.7, Serum Alcohol < 10.0 Assessment/Plan Impression/Plan: Is alert awake and oriented 3 on a mechanical ventilator Respiratory 30 Minute ventilation less than 8 L Spontaneous tidal volume more than 800 He is awake and alert in moderate distress secondary to pain. MAXIMUM TEMPERATURE 101.3. Skin no rash. HEENT exam is negative. Neck is supple with no adenopathy, triple-lumen in place a line in place intubated ventilator settings reviewed. Lungs are clear. Heart regular rhythm with no murmur. Abdomen is soft, nontender with positive bowel sounds. Back no CVA tenderness. Groin area examined large dressing was noted did not disturb the dressing as he just had incision and drainage No cyanosis clubbing or edema Neurologically appeared intact IMPRESSION This is a 60-year-old man with multiple sclerosis, currently on no treatment, and chronic alcohol use admitted today with a four-day history of pain in the right groin, found to be febrile with a leukocytosis, with foul-smelling purulent drainage from a wound in the medial right thigh and with evidence on CT scan of subcutaneous tissue edema and emphysema of the proximal, medial right thigh extending to the right gluteal fold posteriorly. His clinical picture was suggestive of necrotizing fasciitis/Pedro's gangrene, he was taken to the OR Issues * Postop respiratory difficulty most likely related to anesthesia effect at this time he seems to be improving * Significant posterior pharyngeal secretions and oropharyngeal secretions with mild clinical evidence suggestive of fluid overload. Patient did receive more than 4 L of fluid so far * Necrotizing fasciitis versus deep tissue infection on appropriate antibiotics ID is following * Hypokalemia * Altered LFTs probably from sepsis * Significantly elevated bilirubin most likely from sepsis * Significant thrombocytopenia probably related to sepsis but however patient does have history of alcohol use RECOMMENDATION * Pressure support trials if he stable will extubate S patient wishes to be extubated * Intravenous Lasix 1 as he appears to be fluid overloaded with pulmonary edema -like features * Watch urine output * Replace potassium * Repeat LFTs and if it's not improving we'll obtain an ultrasound of the liver on gallbladder if not we will repeat a CT scan of the abdomen and pelvis tomorrow * Watch platelets, and check dic panel * Repeat INR * Transfuse if platelet counts less than 10,000 * Proton pump inhibitor * Continue antibiotics as ordered * Patient is critically ill prognosis is guarded total time spent 40 minutes Consult Acknowledgment - Thank you for your consult request.
--- NOTE | 2016-08-22 21:33 | NUR ---
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
[2016-08-22 21:56] LABS: ABSOLUTE BASOPHIL COUNT 0 /CUMM (0.0-0.2); ABSOLUTE EOSINOPHIL COUNT 0 /CUMM (0.0-0.7); ABSOLUTE GRANULOCYTE CT 17.4 /CUMM (1.4-6.5); ABSOLUTE LYMPH COUNT 0.2 /CUMM (1.2-3.4); ABSOLUTE MONOCYTE COUNT 0.7 /CUMM (0.10-0.60); BASOPHIL % 0 % (0.0-2.0); EOSINOPHIL % 0 % (0-5); MEAN CORPUSCULAR HGB 26.9 PG (27.0-31.0); MEAN CORPUSCULAR HGB CONC 33.5 G/DL (33.0-37.0); MEAN CORPUSCULAR VOLUME 80.1 FL (80.0-94.0); MEAN PLATELET VOLUME 8.7 FL (7.4-10.4); RBC DISTRIBUTION WIDTH 14.1 % (11.5-14.5); WHITE BLOOD CELL COUNT 18.3 /CUMM (4.8-10.8)
[2016-08-22 21:57] LABS: HEMATOCRIT 40.1 % (42-52); PLATELET COUNT 59 /CUMM (130-400)
[2016-08-22 21:59] VITALS: BP 103/55
[2016-08-22 22:22] LABS: PT 13.6 SEC (9.4-12.5)
[2016-08-23] VITALS (7 sets, daily range): BP systolic 94–135; BP diastolic 57–64
[2016-08-23 05:44] LABS: ABSOLUTE BASOPHIL COUNT 0 /CUMM (0.0-0.2); ABSOLUTE EOSINOPHIL COUNT 0 /CUMM (0.0-0.7); ABSOLUTE GRANULOCYTE CT 14.7 /CUMM (1.4-6.5); ABSOLUTE LYMPH COUNT 0.6 /CUMM (1.2-3.4); ABSOLUTE MONOCYTE COUNT 0.5 /CUMM (0.10-0.60); BASOPHIL % 0.2 % (0.0-2.0); EOSINOPHIL % 0.1 % (0-5); GRANULOCYTE % 92.7 % (42.2-75.2); MEAN CORPUSCULAR HGB 26.6 PG (27.0-31.0); MEAN CORPUSCULAR VOLUME 80.7 FL (80.0-94.0); PLATELET COUNT 60 /CUMM (130-400); RBC DISTRIBUTION WIDTH 14.6 % (11.5-14.5); RED BLOOD CELL CT 4.58 /CUMM (4.70-6.10); WHITE BLOOD CELL COUNT 15.8 /CUMM (4.8-10.8)
--- NOTE | 2016-08-23 05:59 | PN- General Surgery ---
See Addendum Subjective Subjective: POD#1 S/P I&D RIGHT GROIN FORNIER'S GANGRENE EXTUBATED, AWAKE, ALERT, HUNGRY NO MAJOR EVENTS OVERNIGHT Objective Vital Signs and I&Os Vital Signs Date Time Temp Pulse Resp B/P B/P Pulse O2 O2 Flow FiO2 Mean Ox Delivery Rate 08/23 0538 97.2 64 20 135/57 08/23 0000 97.9 75 20 117/64 08/23 0000 95 Nasal 3.0L Cannula 08/229 97.8 80 20 103/55 08/22 2107 99 Nasal 3.0L Cannula 08/22 1945 50 08/22 1622 99.9 101 18 140/71 96 Room Air 08/22 1444 101.3 128 20 153/79 Room Air 08/22 1238 98.5 128 16 149/76 98 Room Air Room Air Intake & Output 08/23 0800 08/23 0000 08/22 1600 08/22 0800 08/22 0000 08/21 1600 Intake Total 550 2700 Output Total 470 1650 Balance 80 1050 Intake, IV 550 2700 Output, Urine 470 1650 Patient 185 lb 185 lb Weight Weight Reported by Patient Reported by Patient Measurement Method Physical Exam: CV: RRR LUNGS: CLEAR ABD: SOFT, +BS EXT: WARM WOUND DRSG CHANGED: MILD EXUDATE, TISSUE WITHOUT SIGNIFICANT NECROSIS NO EVIDENCE OF LOCAL GAS IN SURROUNDING TISSUES MINIMAL DRAINAGE Assessment/Plan Assessment/Plan SURGICAL STABLE PLAN CONT BID WET TO DRY DRSG CHANGES FURTHER DEBRIDEMENT PER DR BECKER
--- NOTE | 2016-08-23 09:14 | Cons- CRCU ---
See Addendum General Information and HPI Consulting Request Date of Consult: 08/22/16 Requested By: Dr. Aragon History of Present Illness: Mr. Mcgee is 60-year-old male with past medical history significant for chronic alcoholism, multiple sclerosis not on chronic treatment follows up with Dr. Millard presented to the [facility] with chief complaint of bilateral leg weakness and stiffness. The patient's symptoms started on Monday when his leg was more week and he went to [facility] and thought to be MS exacerbation, was given IV Solu-Medrol and valium and was discharged home. Patient presented to ED on 08/22 complaining of bilateral leg weakness. Patient was found to have right-sided groin redness and swelling and a pimple which had purulent discharge. CT pelvis reveled emphysema of the medial right thigh. 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 ID and surgical consultation was obtained immediately. Patient had surgical debridement on 08/22, tolerated well with no significant events, was extubated this morning 08/23, saturating well on room air 97%. Patient was started on vancomycin and meropenem. This morning, patient was seen and examined, complains of pain at surgical site 08/10, denied any chest pain, shortness of breath, palpitation. Patient reported weakness of right lower extremity, started since Monday, last time had follow up with Dr. Millard was on Monday but felt that weakness has been progressively worsening. Denied numbness. Patient reported feeling hungry, diet was started, tolerated food well, denied abdominal pain, nausea or vomiting. Over the last 24 hours Temperature 97.2, MAXIMUM TEMPERATURE 101.3 Pulse lowest 56, highest 128 sinus rhythm Blood pressure lowest 96/80, highest 153/79 Saturating 97% room air Intake 900, output 2120 Allergies/Medications Allergies: Coded Allergies: No Known Allergies (08/22/16) Home Med List: Baclofen 10 MG TABLET 1 TAB PO 4 TIMES/DAY MUSCLE SPASMS (Reported) Review of Systems Review of Systems Constitutional: Reports: see HPI. 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 Home Services at Home: None Primary Language: Sri Lankan Smoking Status: Current Everyday Smoker ETOH Use: alcoholic, drinks 6 packs a day Illicit Drug Use: denies illicit drug use Exam & Diagnostic Data Last 24 Hrs of Vital Signs/I&O Vital Signs Date Time Temp Pulse Resp B/P B/P Pulse O2 O2 Flow FiO2 Mean Ox Delivery Rate 08/23 0800 Nasal 2.0L Cannula 08/23 0800 97.3 79 20 94/58 08/23 0800 97.3 79 20 94/58 99 Nasal 2.0L Cannula 08/23 0538 97.2 64 20 135/57 08/23 0000 97.9 75 20 117/64 08/23 0000 95 Nasal 3.0L Cannula 08/22 2159 97.8 80 20 103/55 08/22 2107 99 Nasal 3.0L Cannula 08/22 1945 50 08/22 1622 99.9 101 18 140/71 96 Room Air 08/22 1444 101.3 128 20 153/79 Room Air Intake & Output 08/23 1600 08/23 0800 08/23 0000 Intake Total 550 2700 Output Total 470 1650 Balance 80 1050 Intake, IV 550 2700 Output, Urine 470 1650 Patient 83.915 kg Weight Weight Reported by Patient Measurement Method Physical Exam General Appearance: well developed/nourished, no apparent distress, alert, awake Head: atraumatic, normal appearance Eyes: Bilateral: normal appearance, PERRL, EOMI. Ears, Nose, Throat: normal pharynx, normal ENT inspection Neck: normal inspection, supple, full range of motion Respiratory: normal breath sounds, chest non-tender, no respiratory distress, bilateral basal crackles Cardiovascular: regular rate/rhythm Gastrointestinal: normal bowel sounds, soft, non-tender Extremities: normal capillary refill, no edema, Rignt thigh inner surfecs erythema and warm Surgical site no active bleeding or discharge Neurologic/Psych: awake, alert, oriented x 3, Sensory itact Motor Right LE 4-/5 Cranial Nerves: normal hearing, normal speech, PERRL Last 48 Hrs of Labs/Zacarias: Laboratory Tests 08/23/16 1223: PT Pending, INR Pending 08/23/16 0510: Anion Gap 7, Estimated GFR > 60, BUN/Creatinine Ratio 20.0, Phosphorus 2.9, Magnesium 2.2, Total Bilirubin 2.1 H, Direct Bilirubin 0.5 H, AST 43, ALT 87 H, Alkaline Phosphatase 74, Total Protein 4.8 L, Albumin 2.3 L, CBC w Diff MAN DIFF ORDERED, RBC 4.58 L, MCV 80.7, MCH 26.6 L, RDW 14.6 H, MPV 9.0, Gran % 92.7 H, Lymphocytes % 3.5 L, Monocytes % 3.5, Eosinophils % 0.1, Basophils % 0.2, Absolute Granulocytes 14.7 H, Segmented Neutrophils 80 H, Band Neutrophils 11 H, Absolute Lymphocytes 0.6 L, Lymphocytes 3 L, Monocytes 6, Absolute Monocytes 0.5, Absolute Eosinophils 0, Absolute Basophils 0, Platelet Estimate DECREASED, Polychromasia 1+, Ovalocytes 1+, PUBS MCHC 33.0 08/22/162128: Lactic Acid 1.0 08/22/162128: Anion Gap 9, Estimated GFR > 60, Glucose 119 H, Calcium 7.3 L, Phosphorus 3.5, Magnesium 1.7, Total Bilirubin 2.8 H, AST 65 H, ALT 110 H, Albumin 2.7 L, PT 13.6 H, INR 1.30 H, Fibrinogen Activity 645 H, Fibrin Degrad Products >10 but < 40 ug/ml H, D-Dimer 1960 H, CBC w Diff MAN DIFF ORDERED, RBC 5.00, MCV 80.1, MCH 26.9 L, RDW 14.1, MPV 8.7, Gran % 95.0 H, Lymphocytes % 1.2 L, Monocytes % 3.8, Eosinophils % 0, Basophils % 0 L, Absolute Granulocytes 17.4 H, Segmented Neutrophils 91 H, Band Neutrophils 8 H, Absolute Lymphocytes 0.2 L, Lymphocytes 1 L, Absolute Monocytes 0.7 H, Absolute Eosinophils 0, Absolute Basophils 0, Normocytic RBCs VERIFIED, Normochromic RBCs VERIFIED, PUBS MCHC 33.5, Fld Total RBCs Counted 100 08/22/162019: pH 7.35, pCO2 37, pO2 96, HCO3 20 L, ABG O2 Sat (Measured) 95.0 L, P-50 (Temp Corrected) N, Carboxyhemoglobin 1.5, O2 Concentration % 50%, Temperature 97.8, O2 Delivery Method ESPRIT, Vent Mode CPAP, Expiratory Pressure 5, Pressure Support 6, Phlebotomy Draw Site GILTNER 08/22/16 1510: Urinalysis MOD H, Urine Color ORANG H, Urine Clarity HAZY H, Urine pH 6.0, Ur Specific [place] 1.025, Urine Protein 100 H, Urine Ketones 15 H, Urine Nitrite NEG, Urine Bilirubin NEG@ICTO, Urine Urobilinogen >=8.0 H, Ur Leukocyte Esterase NEG, Ur Microscopic SEDIMENT EXAMINED, Urine RBC 10-15 H, Urine WBC RARE, Ur Epithelial Cells RARE, Urine Bacteria FEW H, Urine Mucus MOD H, Urine Hemoglobin MOD H, Urine Glucose NEG 08/22/16 1454: Lactic Acid 1.4 08/22/16 1454: Anion Gap 11, Estimated GFR > 60, BUN/Creatinine Ratio 21.4, Glucose 106 H, Calcium 8.6, Phosphorus 2.3 L, Magnesium 1.8, Total Bilirubin 3.7 H, AST 103 H, ALT 144 H, Alkaline Phosphatase 108, C-Reactive Prot, Quant > 9.0 H, Total Protein 6.7, Albumin 3.6, Globulin 3.1, Albumin/Globulin Ratio 1.2, PT 13.1 H, INR 1.25 H, APTT 30, CBC w Diff MAN DIFF ORDERED, RBC 5.86, MCV 79.6 L, MCH 26.8 L, RDW 14.2, MPV 8.4, Gran % 95.2 H, Lymphocytes % 1.5 L, Monocytes % 3.3, Eosinophils % 0, Basophils % 0 L, Absolute Granulocytes 16.9 H, Segmented Neutrophils 84 H, Band Neutrophils 9 H, Absolute Lymphocytes 0.3 L, Lymphocytes 3 L, Monocytes 4, Absolute Monocytes 0.6, Absolute Eosinophils 0, Absolute Basophils 0, Platelet Estimate DECREASED, Hypochromic-Microcytic 1+, Microcytic Cells 1+, PUBS MCHC 33.7, Serum Alcohol < 10.0 Assessment/Plan Impression/Plan: Mr. Mcgee is 60-year-old male with past medical history significant for chronic alcoholism, multiple sclerosis not on chronic treatment follows up with Dr. Millard presented to the [facility] with chief complaint of bilateral leg weakness and stiffness. 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 Patient had surgical debridement on 08/22, POD# Patient was extubated this morning 08/23, saturating well on room air 97%. Patient was started on vancomycin and meropenem. CT pelvis 08/22 IMPRESSION: Skin thickening, subcutaneous tissue edema and emphysema of the medial right thigh. Findings suggest presence of cellulitis and necrotizing fasciitis. There is no focal, walled off fluid collection. Mild reactive lymphadenopathy is present in the right groin. Problem list #Pedro's gangrene #Alcohol withdrawal #Multiple sclerosis #Thrombocytopenia #Transaminitis #Pedro's gangrene -POD#1 -Continue follow surgical recommendations regarding further debridement -Patient was extubated this morning 08/23, saturating well on room air 97% -Continue meropenem and vancomycin Day#2 -ID consultation was obtained, thinks the recommendation -Follow up OR cultures -Optimal pain ibuprofen 600 for mild, Percocet 1 tab for fmoderate, Percocet 2 tabs for severe pain -We'll keep Ridley catheter and central line for 1 day possible debridement tomorrow #Alcohol withdrawal -CIWA protocol -Last drink was 3 days ago -CIWA is 0 so far #Multiple sclerosis -Not on any medication -I called Dr. Millard's office for FYI message that patient was admitted to ICU #Thrombocytopenia -Could be sepsis related versus alcoholism -No signs of active bleeding -Continue to monitor platelet #Transaminitis -AST 65, ALT 110, total troponin 2.1, direct 0.5, albumin 2.3, INR 1.25 -Repeat liver function test Diet regular DVT prophlaxis Alps Code Full Consult Acknowledgment - Thank you for your consult request.
--- NOTE | 2016-08-23 09:43 | PN- Pulmonary ---
Subjective HPI/Critical Care Issues: Doing better afebrile this am Has been weaned off vent eating and hungry Objective Current Medications: Current Medications Sig/Newton Start time Last Medication Dose Route Stop Time Status Admin Ampicillin Sodium/ 0 .STK-MED ONE 08/22 1509 DC Sulbactam Sodium .ROUTE Ampicillin Sodium/ 3,000 MG ONCE ONE 08/22 1445 DC 08/22 Sulbactam Sodium IV 08/22 1514 1526 Sodium Chloride 100 ML Clindamycin 600 MG ONCE ONE 08/22 1630 DC 08/22 Dextrose/Water 50 ML IV 08/22 1659 1638 Fentanyl Citrate 1,000 MCG Q24H 08/23 1999 DC Dextrose/Water 250 ML IV Furosemide 20 MG ONCE ONE 08/22 2014 DC 08/22 IV 08/22 Hydrocortisone 100 MG .STK-MED ONE 08/22 1807 DC Sodium Succinate IM 08/22 1808 Magnesium Sulfate 1 GM Q1H 08/22 2330 DC 08/23 Dextrose/Water 100 ML IV 08/23 0129 0136 Meropenem 1 GM IQ8 08/23 0000 AC 08/23 IV 0816 Nicotine 21 MG DAILY 08/22 2137 AC TOP Pantoprazole Sodium 40 MG DAILY 08/22 2049 AC 08/23 IV 0816 Potassium Chloride 40 MEQ ONCE ONE 08/23 0615 DC 08/23 PO 08/23 0616 0709 Potassium Chloride 20 MEQ Q1H 08/22 2359 DC 08/23 IV 08/23 0100 0122 Potassium Chloride 10 MEQ Q1H 08/22 1745 DC 08/22 IV 08/22 1946 2344 Sodium Chloride 1,000 ML BOLUS ONE 08/22 1445 DC 08/22 IV 08/22 1544 1519 Sodium Chloride 1,000 ML BOLUS ONE 08/22 1445 DC 08/22 IV 08/22 1544 1519 Sodium Chloride 1,000 ML BOLUS ONE 08/22 1445 DC 08/22 IV 08/22 1544 1634 Vancomycin HCl 1,000 MG DAILY 08/23 1000 CAN Sodium Chloride 250 ML IV Vancomycin HCl 1,000 MG Q12 08/22 2200 AC 08/22 Sodium Chloride 250 ML IV 2216 Vancomycin HCl 0 .STK-MED ONE 08/22 1727 DC .ROUTE Vancomycin HCl 1,000 MG ONCE ONE 08/22 1630 DC 08/22 Sodium Chloride 250 ML IV 08/22 1729 1732 Laboratory Tests 08/23 08/22 0768 8805 Chemistry Sodium (137 - 145 mmol/L) 135 L Potassium (3.5 - 5.1 mmol/L) 3.6 Chloride (98 - 107 mmol/L) 105 Carbon Dioxide (22 - 30 mmol/L) 23 Anion Gap (5 - 16) 7 BUN (9 - 20 mg/dL) 14 Creatinine (0.7 - 1.2 mg/dL) 0.7 Estimated GFR (>60 ml/min) > 60 BUN/Creatinine Ratio (7 - 25 %) 20.0 Lactic Acid (0.7 - 2.1 mmol/L) 1.0 Phosphorus (2.5 - 4.5 mg/dL) 2.9 Magnesium (1.6 - 2.3 mg/dL) 2.2 Total Bilirubin (0.2 - 1.3 mg/dL) 2.1 H Direct Bilirubin (< 0.4 mg/dL) 0.5 H AST (17 - 59 U/L) 43 ALT (21 - 72 U/L) 87 H Alkaline Phosphatase (< 127 U/L) 74 Total Protein (6.3 - 8.2 g/dL) 4.8 L Albumin (3.5 - 5.0 g/dL) 2.3 L Hematology CBC w Diff MAN DIFF ORDERED WBC (4.8 - 10.8 /CUMM) 15.8 H RBC (4.70 - 6.10 /CUMM) 4.58 L Hgb (14.0 - 18.0 G/DL) 12.2 L Hct (42 - 52 %) 37.0 L MCV (80.0 - 94.0 FL) 80.7 MCH (27.0 - 31.0 PG) 26.6 L RDW (11.5 - 14.5 %) 14.6 H Plt Count (130 - 400 /CUMM) 60 L MPV (7.4 - 10.4 FL) 9.0 Gran % (42.2 - 75.2 %) 92.7 H Lymphocytes % (20.5 - 51.1 %) 3.5 L Monocytes % (1.7 - 9.3 %) 3.5 Eosinophils % (0 - 5 %) 0.1 Basophils % (0.0 - 2.0 %) 0.2 Absolute Granulocytes (1.4 - 6.5 /CUMM) 14.7 H Segmented Neutrophils (42.2 - 75.2 %) 80 H Band Neutrophils (0.0 - 5.0 %) 11 H Absolute Lymphocytes (1.2 - 3.4 /CUMM) 0.6 L Lymphocytes (20.5 - 51.1 %) 3 L Monocytes (1.7 - 9.3 %) 6 Absolute Monocytes (0.10 - 0.60 /CUMM) 0.5 Absolute Eosinophils (0.0 - 0.7 /CUMM) 0 Absolute Basophils (0.0 - 0.2 /CUMM) 0 Platelet Estimate (ADEQUATE) DECREASED Polychromasia 1+ Ovalocytes 1+ PUBS MCHC (33.0 - 37.0 G/DL) 33.0 08/22 2020 Blood Gas pH (7.35 - 7.45 PH) 7.35 pCO2 (35 - 45 TORR) 37 pO2 (80 - 100 TORR) 96 HCO3 (21 - 28 MEQ/L) 20 L ABG O2 Sat (Measured) (>96.0 %) 95.0 L P-50 (Temp Corrected) N Carboxyhemoglobin (1.5 - 5.0 %) 1.5 O2 Concentration % 50% Temperature (97.0 - 100.0 FARH) 97.8 O2 Delivery Method ESPRIT Vent Mode CPAP Expiratory Pressure (CMH2O/P) 5 Pressure Support (CMH2O/P) 6 Chemistry Sodium (137 - 145 mmol/L) 135 L Potassium (3.5 - 5.1 mmol/L) 3.2 L Chloride (98 - 107 mmol/L) 104 Carbon Dioxide (22 - 30 mmol/L) 22 Anion Gap (5 - 16) 9 BUN (9 - 20 mg/dL) 11 Creatinine (0.7 - 1.2 mg/dL) 0.7 Estimated GFR (>60 ml/min) > 60 Glucose (65 - 99 mg/dL) 119 H Calcium (8.4 - 10.2 mg/dL) 7.3 L Phosphorus (2.5 - 4.5 mg/dL) 3.5 Magnesium (1.6 - 2.3 mg/dL) 1.7 Total Bilirubin (0.2 - 1.3 mg/dL) 2.8 H AST (17 - 59 U/L) 65 H ALT (21 - 72 U/L) 110 H Albumin (3.5 - 5.0 g/dL) 2.7 L Coagulation PT (9.4 - 12.5 SEC) 13.6 H INR (0.90 - 1.17) 1.30 H Fibrinogen Activity (200 - 393 MG/DL) 645 H Fibrin Degrad Products (< 10 ug/ml) >10 but < 40 ug/ml H D-Dimer (70 - 232 ng/ml) 1960 H Hematology CBC w Diff MAN DIFF ORDERED WBC (4.8 - 10.8 /CUMM) 18.3 H RBC (4.70 - 6.10 /CUMM) 5.00 Hgb (14.0 - 18.0 G/DL) 13.4 L Hct (42 - 52 %) 40.1 L MCV (80.0 - 94.0 FL) 80.1 MCH (27.0 - 31.0 PG) 26.9 L RDW (11.5 - 14.5 %) 14.1 Plt Count (130 - 400 /CUMM) 59 L MPV (7.4 - 10.4 FL) 8.7 Gran % (42.2 - 75.2 %) 95.0 H Lymphocytes % (20.5 - 51.1 %) 1.2 L Monocytes % (1.7 - 9.3 %) 3.8 Eosinophils % (0 - 5 %) 0 Basophils % (0.0 - 2.0 %) 0 L Absolute Granulocytes (1.4 - 6.5 /CUMM) 17.4 H Segmented Neutrophils (42.2 - 75.2 %) 91 H Band Neutrophils (0.0 - 5.0 %) 8 H Absolute Lymphocytes (1.2 - 3.4 /CUMM) 0.2 L Lymphocytes (20.5 - 51.1 %) 1 L Absolute Monocytes (0.10 - 0.60 /CUMM) 0.7 H Absolute Eosinophils (0.0 - 0.7 /CUMM) 0 Absolute Basophils (0.0 - 0.2 /CUMM) 0 Normocytic RBCs VERIFIED Normochromic RBCs VERIFIED PUBS MCHC (33.0 - 37.0 G/DL) 33.5 Miscellaneous Phlebotomy Draw Site DEX Other Body Source Fld Total RBCs Counted (%) 100 08/22 08/22 1510 1454 Chemistry Lactic Acid (0.7 - 2.1 mmol/L) 1.4 Urines Urinalysis MOD H Urine Color (YEL,AMB,STR) ORANG H Urine Clarity (CLEAR) HAZY H Urine pH (5.0 - 8.0) 6.0 Ur Specific [place] (1.001 - 1.035) 1.025 Urine Protein (NEG,<30 MG/DL) 100 H Urine Ketones (NEG) 15 H Urine Nitrite (NEG) NEG Urine Bilirubin (NEG) NEG@ICTO Urine Urobilinogen (0.1 - 1.0 EU/dl) >=8.0 H Ur Leukocyte Esterase (NEG) NEG Ur Microscopic SEDIMENT EXAMINED Urine RBC (0 - 5 /HPF) 10-15 H Urine WBC (0 - 2 /HPF) RARE Ur Epithelial Cells (NONE,FEW) RARE Urine Bacteria (NEG/NONE) FEW H Urine Mucus (FEW,NONE) MOD H Urine Hemoglobin (NEG) MOD H Urine Glucose (N MG/DL) NEG 08/22 1454 Chemistry Sodium (137 - 145 mmol/L) 133 L Potassium (3.5 - 5.1 mmol/L) 3.4 L Chloride (98 - 107 mmol/L) 100 Carbon Dioxide (22 - 30 mmol/L) 22 Anion Gap (5 - 16) 11 BUN (9 - 20 mg/dL) 15 Creatinine (0.7 - 1.2 mg/dL) 0.7 Estimated GFR (>60 ml/min) > 60 BUN/Creatinine Ratio (7 - 25 %) 21.4 Glucose (65 - 99 mg/dL) 106 H Calcium (8.4 - 10.2 mg/dL) 8.6 Phosphorus (2.5 - 4.5 mg/dL) 2.3 L Magnesium (1.6 - 2.3 mg/dL) 1.8 Total Bilirubin (0.2 - 1.3 mg/dL) 3.7 H AST (17 - 59 U/L) 103 H ALT (21 - 72 U/L) 144 H Alkaline Phosphatase (< 127 U/L) 108 C-Reactive Prot, Quant (<1.0 mg/dL) > 9.0 H Total Protein (6.3 - 8.2 g/dL) 6.7 Albumin (3.5 - 5.0 g/dL) 3.6 Globulin (1.9 - 4.2 gm/dL) 3.1 Albumin/Globulin Ratio (1.1 - 2.2 %) 1.2 Coagulation PT (9.4 - 12.5 SEC) 13.1 H INR (0.90 - 1.17) 1.25 H APTT (25 - 37 SEC) 30 Hematology CBC w Diff MAN DIFF ORDERED WBC (4.8 - 10.8 /CUMM) 17.8 H RBC (4.70 - 6.10 /CUMM) 5.86 Hgb (14.0 - 18.0 G/DL) 15.7 Hct (42 - 52 %) 46.7 MCV (80.0 - 94.0 FL) 79.6 L MCH (27.0 - 31.0 PG) 26.8 L RDW (11.5 - 14.5 %) 14.2 Plt Count (130 - 400 /CUMM) 31 L MPV (7.4 - 10.4 FL) 8.4 Gran % (42.2 - 75.2 %) 95.2 H Lymphocytes % (20.5 - 51.1 %) 1.5 L Monocytes % (1.7 - 9.3 %) 3.3 Eosinophils % (0 - 5 %) 0 Basophils % (0.0 - 2.0 %) 0 L Absolute Granulocytes (1.4 - 6.5 /CUMM) 16.9 H Segmented Neutrophils (42.2 - 75.2 %) 84 H Band Neutrophils (0.0 - 5.0 %) 9 H Absolute Lymphocytes (1.2 - 3.4 /CUMM) 0.3 L Lymphocytes (20.5 - 51.1 %) 3 L Monocytes (1.7 - 9.3 %) 4 Absolute Monocytes (0.10 - 0.60 /CUMM) 0.6 Absolute Eosinophils (0.0 - 0.7 /CUMM) 0 Absolute Basophils (0.0 - 0.2 /CUMM) 0 Platelet Estimate (ADEQUATE) DECREASED Hypochromic-Microcytic 1+ Microcytic Cells 1+ PUBS MCHC (33.0 - 37.0 G/DL) 33.7 Toxicology Serum Alcohol (<10 MG/DL) < 10.0 Microbiology Date/Time Procedure - Status Source Growth 08/22 2144 Surveillance Culture - RECD UPPER RESP 08/22 2144 Surveillance Culture - RECD GI 08/22 1854 Miscellaneous Culture - RECD MISC O.R. 08/22 1854 Gram Stain - RECD MISC O.R. 08/22 1845 Urine Culture - RES URINE ROUT 08/22 1500 Blood Culture - RECD BLOOD 08/22 1454 Blood Culture - RECD BLOOD Vital Signs & I&O Last 24 Hrs of Vitals and I&O: Vital Signs Date Time Temp Pulse Resp B/P B/P Pulse O2 O2 Flow FiO2 Mean Ox Delivery Rate 08/23 0538 97.2 64 20 135/57 08/23 0000 97.9 75 20 117/64 08/23 0000 95 Nasal 3.0L Cannula 08/22 2159 97.8 80 20 103/55 08/22 2107 99 Nasal 3.0L Cannula 08/22 1945 50 08/22 1622 99.9 101 18 140/71 96 Room Air 08/22 1444 101.3 128 20 153/79 Room Air 08/22 1238 98.5 128 16 149/76 98 Room Air Room Air Intake & Output 08/23 1600 08/23 0800 08/23 0000 Intake Total 550 2700 Output Total 470 1650 Balance 80 1050 Intake, IV 550 2700 Output, Urine 470 1650 Patient 185 lb Weight Weight Reported by Patient Measurement Method Impression/Plan Impression/Plan Impression/Plan: Is alert awake and oriented 3 now off mechanical ventilator Doing well after extubation MAXIMUM TEMPERATURE 101.3. Skin no rash. HEENT exam is negative. Neck is supple with no adenopathy, triple-lumen in place a line in place intubated ventilator settings reviewed. Lungs are clear. Heart regular rhythm with no murmur. Abdomen is soft, nontender with positive bowel sounds. Back no CVA tenderness. Groin area examined large dressing was noted did not disturb the dressing as he just had incision and drainage No cyanosis clubbing or edema Neurologically appeared intact IMPRESSION This is a 60-year-old man with multiple sclerosis, currently on no treatment, and chronic alcohol use admitted today with a four-day history of pain in the right groin, found to be febrile with a leukocytosis, with foul-smelling purulent drainage from a wound in the medial right thigh and with evidence on CT scan of subcutaneous tissue edema and emphysema of the proximal, medial right thigh extending to the right gluteal fold posteriorly. His clinical picture was suggestive of necrotizing fasciitis/Pedro's gangrene, he was taken to the OR Issues * s/p extubation last night * Necrotizing fasciitis versus deep tissue infection on appropriate antibiotics ID is following * Hypokalemia resolving * Altered LFTs probably from sepsis * Significantly elevated bilirubin most likely from sepsis * Significant thrombocytopenia probably related to sepsis but however patient does have history of alcohol use RECOMMENDATION * COnt abx per id * Watch platelets * Repeat INR * Proton pump inhibitor * OK to the floor, dc A- line keep tlc for one more day and yoder per id
--- NOTE | 2016-08-23 13:22 | PN- General Surgery ---
Surgical Brief Attending Note Brief Attending Note: improved. there is ?worsening erythema to right thigh. observe. it was marked at bedside. if worsens, plan for OR tomorrow.
[2016-08-23 13:46] LABS: PT 12.5 SEC (9.4-12.5)
--- NOTE | 2016-08-23 14:38 | NUR ---
RIGHT THIGH RED WARM TENDER, OUTLINED IN PEN BY MD BECKER. DRESSING CLEAN DRY AND INTACT. DOWN GRADED TO GEN MED. ON RA. VSS.
[2016-08-24] VITALS (8 sets, daily range): BP systolic 108–132; BP diastolic 54–80
--- NOTE | 2016-08-24 01:45 | NUR ---
LATE ENTRY NURSING NOTE: PER PREVIOUS RN, DREW, ICU NURSE TO COME TO TO ASSESS WOUND AND COMPLETE WOUND MAN INTERVENTION AFTER 1899. @ 2051 PARKING ENF[employer]CEMENT OFFICER [facility] CALLED - ER WAS RESPONSIBLE FOR ADDING WOUND MAN PRE WASHOUT NO RN HAS VISIBLY SEEN WOUND POST OP/SINCE ADMISSION. @ 2199 - THIS RN CONTACT NIYA HYDE, PER PA, DO NOT REMOVE POST OP DRESSING TO EVALUATE WOUND PT IS GOING TO OR IN AM.
--- NOTE | 2016-08-24 07:43 | NUR ---
NURSING NOTE: PER RN NELY FERRER, NO NEED FOR WOUND INTERVENTION R GROIN IS A SURGICAL SITE.
--- NOTE | 2016-08-24 08:02 | PN- Housestaff ---
CHUCK REYNOLDS 08/24/16 0802: Subjective Follow-up For: #Pedro's gangrene #Alcohol withdrawal #Multiple sclerosis #Thrombocytopenia #Transaminitis Complaints: pain scale (0-10) Subjective: Patient was seen and examined this morning. He is alert awake and oriented to time place and person. No acute events were noticed overnight. He does report 3 out of 10 pain right medial thigh at the site of debridement Denies any fever, chills. Denies any nausea, vomiting, abdominal pain, chest pain or difficulty breathing. Vitals stable afebrile heart rate 74, respiratory rate 20, blood pressure 124/70 saturating at 98% on room air Review of Systems Constitutional: Denies: chills, diaphoresis, fever, malaise, weakness. Objective Last 24 Hrs of Vital Signs/I&O Vital Signs Date Time Temp Pulse Resp B/P B/P Pulse O2 O2 Flow FiO2 Mean Ox Delivery Rate 08/24 1217 98.6 68 18 108/54 95 Room Air 08/24 0833 98.7 64 18 112/56 94 08/24 0600 97.5 74 20 124/70 08/24 0416 97.5 74 20 124/70 94 Room Air 08/24 0400 99.0 84 20 120/60 08/24 0000 99.0 84 20 120/60 08/23 2220 99.0 84 20 120/60 93 Room Air 08/23 2200 98.4 83 20 124/60 08/23 2000 98.4 83 20 124/60 08/23 1946 Room Air Room Air 08/23 1718 98.4 83 20 124/60 94 Room Air Intake & Output 08/24 1600 08/24 0800 08/24 0000 Intake Total 240 Output Total 1250 1150 Balance -1250 -910 Intake, Oral 240 Output, Urine 1250 1150 Physical Exam General Appearance: Alert, Oriented X3, Cooperative, No Acute Distress Skin: No Rashes, thigh erythema HEENT: Atraumatic, PERRLA, EOMI, Mucous Membr. moist/pink Neck: Supple, No JVD Lymphatic: Axillary nl, Cervical nl Cardiovascular: Normal S1, Normal S2 Lungs: Normal Air Movement Abdomen: Normal Bowel Sounds, Soft, No Tenderness Extremities: No Clubbing, No Cyanosis, No Edema Vascular: Normal Pulses, Pulses Symmetrical Current Medications: Current Medications Sig/Newton Start time Last Medication Dose Route Stop Time Status Admin Bisacodyl 5 MG DAILY PRN 08/24 1045 AC PO Dextrose/Sodium 1,000 ML Q10H 08/24 0815 AC 08/24 Chloride IV 08/24 1814 0828 Ibuprofen 600 MG Q6P PRN 08/23 1330 AC PO Lorazepam 0 Q1P PRN 08/23 1100 AC IV Meropenem 1 GM IQ8 08/23 0000 AC 08/24 IV 0833 Morphine Sulfate 1 MG ONCE PRN 08/24 1045 AC IV Nicotine 21 MG DAILY 08/22 2137 AC TOP Oxycodone/ 1 TAB Q6P PRN 08/23 1330 AC Acetaminophen PO Oxycodone/ 2 TAB Q6P PRN 08/23 1330 AC 08/24 Acetaminophen PO 0554 Pantoprazole Sodium 40 MG DAILY 08/22 2049 AC 08/24 IV 1117 Polyethylene Glycol 17 GM DAILY 08/24 1032 AC PO Senna/Docusate Sodium 2 TAB DAILY PRN 08/24 1045 AC PO Vancomycin HCl 1,000 MG Q12 08/22 2200 AC 08/24 Sodium Chloride 250 ML IV 1225 Last 24 Hrs of Lab/[place] Results Last 24 Hrs of Labs/Mics: Laboratory Tests 08/24/16 0605: Anion Gap 7, Estimated GFR > 60, Glucose 70, Calcium 7.6 L, Phosphorus 2.3 L, Magnesium 2.1, Total Bilirubin 1.7 H, AST 37, ALT 82 H, Albumin 2.5 L, CBC w Diff NO MAN DIFF REQ, RBC 4.29 L, MCV 79.7 L, MCH 26.6 L, RDW 14.5, MPV 9.3, Gran % 88.2 H, Lymphocytes % 5.2 L, Monocytes % 5.8, Eosinophils % 0.7, Basophils % 0.1, Absolute Granulocytes 9.7 H, Absolute Lymphocytes 0.6 L, Absolute Monocytes 0.6, Absolute Eosinophils 0.1, Absolute Basophils 0, PUBS MCHC 33.4 Assessment/Plan Assessment: Mr. Mcgee is 60-year-old male with past medical history significant for chronic alcoholism, multiple sclerosis not on chronic treatment follows up with Dr. Millard presented to the [facility] with chief complaint of bilateral leg weakness and stiffness. The patient's symptoms started on Monday08/19/16 when his leg was more week and he went to [facility] and thought to be MS exacerbation, was given IV Solu -Medrol and valium and was discharged home. Patient presented to ED on 08/22 complaining of bilateral leg weakness. Patient was found to have right-sided groin redness and swelling and a pimple which had purulent discharge. CT pelvis reveled emphysema of the medial right thigh. 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 ID and surgical consultation was obtained immediately. Patient had surgical debridement on 08/22, tolerated well with no significant events, was extubated this morning 08/23, saturating well on room air 97%. Patient was started on vancomycin and meropenem. Vitals on admission febrile 101.3, tachycardia 128, resp rate 20, blood pressure 153/79, sating at 98 on 3 L Pertinent labs on admission Leukocytosis 15.8, hemoglobin 12 and hematocrit 37, platelets 60,[address] pelvis 08/22 IMPRESSION: Skin thickening, subcutaneous tissue edema and emphysema of the medial right thigh. Findings suggest presence of cellulitis and necrotizing fasciitis. There is no focal, walled off fluid collection. Mild reactive lymphadenopathy is present in the right groin. Problem list #Pedro's gangrene #Alcohol withdrawal #Multiple sclerosis #Thrombocytopenia #Transaminitis #Pedro's gangrene/Progressive cellulitis status post I&D of right inner thigh/groin abscess/necrotizing fasciitis Patient presented to ED on 08/22 complaining of bilateral leg weakness. Patient was found to have right-sided groin redness and swelling and a pimple which had purulent discharge. CT pelvis reveled emphysema of the medial right thigh. 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 ID and surgical consultation was obtained immediately. Patient had surgical debridement on 08/22, tolerated well with no significant events, was extubated on 08/23. He was in ICU for 1 day after surgical debridement. * Transferred to general medicine floor from ICU on 08/23/2016 * Status post debridement on 08/22 and 08/24 * OR cultures growing gram-positive cocci, gram-negative rods and gram-positive rods * Continue IV meropenem and vancomycin day 3 * ID recommendations appreciated * Will follow-up blood cultures * Follow-up over cultures * Optimal pain ibuprofen 600 for mild, Percocet 1 tab for moderate, Percocet 2 tabs for severe pain * We'll d/c Ridley catheter and central line after surgical debridement, based on surgical recommendations * Monitor for fever, leukocytosis #Alcohol withdrawal -CIWA protocol -Last drink was 3 days ago -CIWA is 0 so far #Multiple sclerosis -Not on any medication -called Dr. Millard's office for FYI message that patient was admitted to ICU #Thrombocytopenia -Could be sepsis related versus alcoholism -No signs of active bleeding -Continue to monitor platelets #Transaminitis -AST 65, ALT 110, total troponin 2.1, direct 0.5, albumin 2.3, INR 1.25 -Repeat liver function test Diet regular DVT prophlaxis Alps Code Full Problem List: 1. 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 Necrotizing fasciitis Pain Ratin Pain Location: right medial thigh Pain Goal: Remain pain free Pain Plan: tylinol Tomorrow's Labs & Rationales: CBCs the setting of leukocytosis ANDRE FABIAN 08/24/16 1106: Attending MD Review Statement Attending Statement Attending MD Statement: examined this patient, discuss w/resident/PA/LEATHERSMITH, agreed w/resident/PA/LEATHERSMITH, discussed with family, reviewed EMR data (avail), discussed with nursing, discussed with case mgmt, reviewed images, amended to note Attending Assessment/Plan: Transferred from ICU to med/surg: Assessment 1. Acute necrotizing fasciitis s/p emergent debridemnet POD2 2. History of multiple sclerosis 3. Alcohol dependence 4. History of MS 5. Leukocytosis 6. anemia post-op acute blood loss anemia PLAN surgery , ID following plan for repeat debridement today monitor labs, cont current care gi/dvt prophylaxis full code.
[2016-08-24 08:15] LABS: ABSOLUTE BASOPHIL COUNT 0 /CUMM (0.0-0.2); ABSOLUTE EOSINOPHIL COUNT 0.1 /CUMM (0.0-0.7); ABSOLUTE GRANULOCYTE CT 9.7 /CUMM (1.4-6.5); ABSOLUTE LYMPH COUNT 0.6 /CUMM (1.2-3.4); ABSOLUTE MONOCYTE COUNT 0.6 /CUMM (0.10-0.60); BASOPHIL % 0.1 % (0.0-2.0); EOSINOPHIL % 0.7 % (0-5); GRANULOCYTE % 88.2 % (42.2-75.2); HEMATOCRIT 34.2 % (42-52); MEAN CORPUSCULAR HGB 26.6 PG (27.0-31.0); MEAN CORPUSCULAR HGB CONC 33.4 G/DL (33.0-37.0); MEAN CORPUSCULAR VOLUME 79.7 FL (80.0-94.0); MEAN PLATELET VOLUME 9.3 FL (7.4-10.4); RBC DISTRIBUTION WIDTH 14.5 % (11.5-14.5); RED BLOOD CELL CT 4.29 /CUMM (4.70-6.10)
--- NOTE | 2016-08-24 08:28 | PN- General Surgery ---
Subjective Subjective: The patient seen this morning postoperative day #2. Reports feeling very frustrated about the 5 process with multiple minor complaints complaints and reports that his pain is under adequate control. Objective Vital Signs and I&Os Vital Signs Date Time Temp Pulse Resp B/P B/P Pulse O2 O2 Flow FiO2 Mean Ox Delivery Rate 08/24 0600 97.5 74 20 124/70 08/24 0416 97.5 74 20 124/70 94 Room Air 08/24 0400 99.0 84 20 120/60 08/24 0000 99.0 84 20 120/60 08/23 2220 99.0 84 20 12060 93 Room Air 08/23 2200 98.4 83 20 124/60 08/23 2000 98.4 83 20 124/60 08/23 1946 Room Air Room Air 08/23 1718 98.4 83 20 94 Room Air Intake & Output 08/24 1600 08/24 0800 08/24 0000 08/23 1600 08/23 0800 08/23 0000 Intake Total 240 742 271 9847 Output Total 1150 736 701 5217 Balance -910 080 70 9966 Intake, IV 877 501 5369 Intake, Oral 240 480 Number 0 Bowel Movements Output, Urine 1150 544 136 5548 Patient 185 lb Weight Weight Reported by Patient Measurement Method Physical Exam: Gen.: Alert and in obvious distress Skin: Warm and dry Groin/extremities: Surgical dressing is moist with expected drainage there is continued erythema tracking down the right thigh which has slightly progressed from the demarcated area the day prior Bilateral lower extremities are warm without calf tenderness Assessment/Plan Assessment/Plan Assessment: 60-year-old male status post I&D debridement of foreign's gangrene postoperative day #2. The patient is visiting signs of slowly progressing infection Recommendations: Keep patient nothing by mouth with slight dehydration The patient be brought back to the operating theater today for further debridement Continue current pain regiment Antibiotics per infectious disease recommendations Daily dressing change to surgical site Please order physical therapy saw the patient may be out of bed
[2016-08-24 09:57] LABS: PLATELET COUNT 54 /CUMM (130-400)
--- NOTE | 2016-08-24 14:50 | PN- Infect Dx ---
Subjective Subjective: Afebrile. He complains of pain in the right thigh Objective Last 24 Hrs of Vital Signs/I&O Vital Signs Date Time Temp Pulse Resp B/P B/P Pulse O2 O2 Flow FiO2 Mean Ox Delivery Rate 08/24 1217 98.6 68 18 108/54 95 Room Air 08/24 0833 98.7 64 18 112/56 94 08/24 0600 97.5 74 20 124/70 08/24 0416 97.5 74 20 12470 94 Room Air 08/24 0400 99.0 84 20 120/60 08/24 0000 99.0 84 20 120/60 08/23 2220 99.0 84 20 120/60 93 Room Air 08/23 2200 98.4 83 20 124/60 08/23 2000 98.4 83 20 124/60 08/23 1946 Room Air Room Air 08/23 1718 98.4 83 20 94 Room Air Intake & Output 08/24 1600 08/24 0800 08/24 0000 Intake Total 240 Output Total 1250 1150 Balance -1250 -910 Intake, Oral 240 Output, Urine 1250 1150 Physical Exam Other Physical Findings: He appears comfortable in no acute distress Neck right IJ triple-lumen catheter with no inflammation at the site Lungs are clear Heart regular rhythm with no murmur Extremities right leg erythema extending medially to the knee; dressing intact in the right groin Ridley catheter remains in place Results Last 24 Hours of Lab Results: Laboratory Tests 08/24 06 Chemistry Sodium (137 - 145 mmol/L) 134 L Potassium (3.5 - 5.1 mmol/L) 3.7 Chloride (98 - 107 mmol/L) 105 Carbon Dioxide (22 - 30 mmol/L) 22 Anion Gap (5 - 16) 7 BUN (9 - 20 mg/dL) 13 Creatinine (0.7 - 1.2 mg/dL) 0.7 Estimated GFR (>60 ml/min) > 60 Glucose (65 - 99 mg/dL) 70 Calcium (8.4 - 10.2 mg/dL) 7.6 L Phosphorus (2.5 - 4.5 mg/dL) 2.3 L Magnesium (1.6 - 2.3 mg/dL) 2.1 Total Bilirubin (0.2 - 1.3 mg/dL) 1.7 H AST (17 - 59 U/L) 37 ALT (21 - 72 U/L) 82 H Albumin (3.5 - 5.0 g/dL) 2.5 L Hematology CBC w Diff NO MAN DIFF REQ WBC (4.8 - 10.8 /CUMM) 11.0 H RBC (4.70 - 6.10 /CUMM) 4.29 L Hgb (14.0 - 18.0 G/DL) 11.4 L Hct (42 - 52 %) 34.2 L MCV (80.0 - 94.0 FL) 79.7 L MCH (27.0 - 31.0 PG) 26.6 L RDW (11.5 - 14.5 %) 14.5 Plt Count (130 - 400 /CUMM) 54 L MPV (7.4 - 10.4 FL) 9.3 Gran % (42.2 - 75.2 %) 88.2 H Lymphocytes % (20.5 - 51.1 %) 5.2 L Monocytes % (1.7 - 9.3 %) 5.8 Eosinophils % (0 - 5 %) 0.7 Basophils % (0.0 - 2.0 %) 0.1 Absolute Granulocytes (1.4 - 6.5 /CUMM) 9.7 H Absolute Lymphocytes (1.2 - 3.4 /CUMM) 0.6 L Absolute Monocytes (0.10 - 0.60 /CUMM) 0.6 Absolute Eosinophils (0.0 - 0.7 /CUMM) 0.1 Absolute Basophils (0.0 - 0.2 /CUMM) 0 PUBS MCHC (33.0 - 37.0 G/DL) 33.4 Last 24 Hours of [place] Results: OR culture August 22 pending, with gram stain revealing many white blood cells, many gram-positive cocci, moderate gram negative rods and rare gram-positive rods Blood cultures 2 August 22 negative Urine culture August 22 negative Assessment/Plan Impression: Progressive cellulitis in this patient who is now 2 days status post I&D of a right inner thigh/groin abscess/necrotizing fasciitis, with plans for a return to the OR later today for further debridement, with concern for extension of his initial infection. He remains afebrile and white blood cell count continues to decrease on Vancomycin and Meropenem, which can be continued pending OR cultures. He remains thrombocytopenic, possibly secondary to sepsis or alcohol. Suggestion: 1. Follow-up OR cultures 2. Would remove right IJ triple lumen catheter if remains stable and peripheral access available 3. Would remove Ridley catheter if okay with surgery 4. Continue Vancomycin and Meropenem pending above
--- NOTE | 2016-08-24 15:33 | NUR ---
Physical Therapy: Attempted to see pt for Evaluation this afternoon. Pt currenlty going ANKIT to the OR. Will follow up tomorrow as appropriate. Thank you.
--- NOTE | 2016-08-24 15:52 | Operative Report ---
Operative/Inv Procedure Report Surgery Date: 08/24/16 Name of Procedure: Debridement(excisional) perineum, skin, sq tissue. Pre-Operative Diagnosis: Vini's gangrene Post-Operative Diagnosis: same Estimated Blood Loss: less than 50ml Surgeon/Lead Developer: Jono Hernandez M.D., NIYA Parnell Anesthesia: laryngeal mask airway Operative Indication: second look operation for vini's gangrene. spreading cellulitis. Operative/Procedure Note Note: Patient was brought to the operating room and laid supine. Gen. anesthesia was obtained and he was placed in lithotomy position. The wounds were explored. There is no purulence. There is erythema extending down to the knee on the right thigh. There is also erythema extending to the gluteus. There is a tract tunneling along the erythema of the thigh. There is no purulence and it however was difficult to visualize. An incision was made through the skin down to the extent of the erythema. The tract was opened widely. There is no fascial necrosis or fluid indicative of fasciitis. All the tissue was healthy without necrosis. Along the gluteus region there was some persistent inflammatory changes with induration of the skin and subcutaneous tissues. Incision was made to excise this area sharply. This was performed with sharp and cautery dissection. This adequately removed any remaining concern for infectious process. Hemostasis achieved with cautery. The wounds were then pulse lavaged with saline. I to form silk gauze was used as packing and a sterile dressing applied. Findings: Minimal purulence. Indurated skin/sq removed. No evident faciitis to right thigh. CC: CORBIN DYE,GREY Callejas
--- NOTE | 2016-08-24 16:19 | NUR ---
1400- LEFT FLOOR VIA STRETCHER FOR OR. I&D TO [facility] WITH DR. BECKER.
--- NOTE | 2016-08-24 16:45 | NUR ---
PT ARRIVED BACK TO FLOOR VIA STRETCHER S/P I&D TO R [facility] AREA. PT A/V/OX3. ON RA. VITAL SIGNS STABLE, BP 130/80 P 67 T 98.1 AND RR 18, O2 SAT 95% ON RA. D51/2NS RUNNING PER EMAR INTO LFA IV. DRESSING SATURATING BLUE PAD UNDER PT, SURGICAL PA REKHA MADE AWARE. PER REKHA, DO NOT TOUCH PACKING BUT CHANGE PADDING AROUND INCISION SITE. ALSO PER SURG PA, IT IS NORMAL FOR DRAINAGE LIKE THAT. PT C/O NO PAIN. DINNER ORDERED. WILL CONTINUE TO MONITOR.
[2016-08-25] VITALS (8 sets, daily range): BP systolic 120–154; BP diastolic 60–82
--- NOTE | 2016-08-25 08:05 | PN- Housestaff ---
CHUCK REYNOLDS 08/25/16 0805: Subjective Follow-up For: #Pedro's gangrene #Alcohol withdrawal #Multiple sclerosis #Thrombocytopenia #Transaminitis Complaints: pain scale (0-10) Subjective: Patient was seen and examined this morning. He is alert awake and oriented to time place and person. No acute events were noticed overnight. He does report 5 out of 10 pain right medial thigh at the site of debridement Denies any fever, chills. Denies any nausea, vomiting, abdominal pain, chest pain or difficulty breathing. Vitals stable afebrile heart rate 66, respiratory rate 20, blood pressure 154/70 saturating at 98% on room air Review of Systems Constitutional: Denies: chills, diaphoresis, fever, malaise, weakness. Objective Last 24 Hrs of Vital Signs/I&O Vital Signs Date Time Temp Pulse Resp B/P B/P Pulse O2 O2 Flow FiO2 Mean Ox Delivery Rate 08/25 1508 97.8 79 18 130/66 95 Room Air 08/25 1155 98.2 70 18 120/60 94 Room Air 08/25 0816 98.1 66 18 154/72 96 Room Air 08/25 0414 98.1 71 20 150/82 94 Room Air 08/25 0400 98.1 71 20 150/82 08/25 0039 98.8 63 20 138/74 94 Room Air 08/25 0000 98.8 63 20 138/72 05/ 0000 94 Room Air 08/24 2000 98.1 88 20 132/70 92 Room Air 08/24 1656 98.1 67 18 130/80 95 Room Air Intake & Output 08/25 1600 08/25 0800 08/25 0000 Intake Total 448 19 9015 Output Total 450 400 400 Balance 200 -350 900 Intake, IV 250 0 600 Intake, Oral 400 50 700 Number 0 Bowel Movements Output, Urine 450 400 400 Patient 83.915 kg Weight Physical Exam General Appearance: Alert, Oriented X3, Cooperative, No Acute Distress Skin: right medial thigh erythema HEENT: Atraumatic, PERRLA Neck: Supple, No JVD Lymphatic: Cervical nl Cardiovascular: Normal S1, Normal S2 Lungs: Normal Air Movement Abdomen: Normal Bowel Sounds, Soft, No Tenderness Extremities: No Clubbing, No Cyanosis, No Edema Vascular: Normal Pulses Current Medications: Current Medications Sig/Newton Start time Last Medication Dose Route Stop Time Status Admin Bisacodyl 5 MG DAILY PRN 08/24 1615 AC PO Bisacodyl 5 MG DAILY PRN 08/24 1045 DC PO Dextrose/Sodium 1,000 ML Q10H 08/24 1615 DC 08/24 Chloride IV 08/25 0214 1652 Dextrose/Sodium 1,000 ML Q10H 08/24 0815 DC 08/24 Chloride IV 08/24 1814 0828 Ibuprofen 600 MG Q6P PRN 08/24 1615 AC PO Ibuprofen 600 MG Q6P PRN 08/23 1330 DC PO Lorazepam 0 Q1P PRN 08/24 1615 AC IV Lorazepam 0 Q1P PRN 08/23 1100 DC IV Meropenem 1 GM IQ8 08/24 1600 AC 08/25 IV 1520 Meropenem 1 GM IQ8 08/23 0000 DC 08/24 IV 0833 Morphine Sulfate 2 MG Q2P PRN 08/24 1615 AC IV Morphine Sulfate 1 MG ONCE PRN 08/24 1045 DC IV Nicotine 21 MG DAILY 08/25 1000 AC TOP Nicotine 21 MG DAILY 08/22 2137 DC TOP Omeprazole 20 MG DAILY 08/24 1645 AC 08/25 PO 0624 Oxycodone/ 1 TAB Q6P PRN 08/24 1615 AC Acetaminophen PO Oxycodone/ 2 TAB Q6P PRN 08/24 1615 AC 08/25 Acetaminophen PO 1425 Oxycodone/ 1 TAB Q6P PRN 08/23 1330 DC Acetaminophen PO Oxycodone/ 2 TAB Q6P PRN 08/23 1330 DC 08/24 Acetaminophen PO 0554 Pantoprazole Sodium 40 MG DAILY 08/22 2049 DC 08/24 IV 1117 Patient Medication 1 ED .STK-MED ONE 08/25 1337 DC Teaching ED 08/25 1338 Polyethylene Glycol 17 GM DAILY 08/25 1000 AC PO Polyethylene Glycol 17 GM DAILY 08/24 1032 DC PO Senna/Docusate Sodium 2 TAB DAILY 08/25 1047 AC 08/25 PO 1425 Senna/Docusate Sodium 2 TAB DAILY PRN 08/24 1045 DC PO Sodium Hypochlorite 1 SCOTT BID 08/25 1000 AC 08/25 TOP 0852 Vancomycin HCl 1,000 MG Q12 08/24 2200 AC 08/25 Sodium Chloride 250 ML IV 0852 Vancomycin HCl 1,000 MG Q12 08/22 2200 DC 08/24 Sodium Chloride 250 ML IV 1225 Last 24 Hrs of Lab/[facility] Results Last 24 Hrs of Labs/Mics: Laboratory Tests 08/25/16 0615: Anion Gap 7, Estimated GFR > 60, BUN/Creatinine Ratio 21.4, Total Bilirubin 1.0, Direct Bilirubin 0.3, AST 30, ALT 67, Alkaline Phosphatase 76, Total Protein 5.0 L, Albumin 2.4 L, CBC w Diff NO MAN DIFF REQ, RBC 4.44 L, MCV 79.2 L, MCH 26.7 L, RDW 14.7 H, MPV 9.6, Gran % 82.1 H, Lymphocytes % 8.7 L, Monocytes % 8.4, Eosinophils % 0.6, Basophils % 0.2, Absolute Granulocytes 8.4 H, Absolute Lymphocytes 0.9 L, Absolute Monocytes 0.9 H, Absolute Eosinophils 0.1, Absolute Basophils 0, PUBS MCHC 33.7 Assessment/Plan Assessment: Mr. Mcgee is 60-year-old male with past medical history significant for chronic alcoholism, multiple sclerosis not on chronic treatment follows up with Dr. Millard presented to the [facility] with chief complaint of bilateral leg weakness and stiffness. The patient's symptoms started on Monday08/19/16 when his leg was more week and he went to [facility] and thought to be MS exacerbation, was given IV Solu -Medrol and valium and was discharged home. Patient presented to ED on 08/22 complaining of bilateral leg weakness. Patient was found to have right-sided groin redness and swelling and a pimple which had purulent discharge. CT pelvis reveled emphysema of the medial right thigh. 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 ID and surgical consultation was obtained immediately. Patient had surgical debridement on 08/22, tolerated well with no significant events, was extubated this morning 08/23, saturating well on room air 97%. Patient was started on vancomycin and meropenem. Vitals on admission febrile 101.3, tachycardia 128, resp rate 20, blood pressure 153/79, sating at 98 on 3 L Pertinent labs on admission Leukocytosis 15.8, hemoglobin 12 and hematocrit 37, platelets 60,[address] pelvis 08/22 IMPRESSION: Skin thickening, subcutaneous tissue edema and emphysema of the medial right thigh. Findings suggest presence of cellulitis and necrotizing fasciitis. There is no focal, walled off fluid collection. Mild reactive lymphadenopathy is present in the right groin. Problem list #Pedro's gangrene #Alcohol withdrawal #Multiple sclerosis #Thrombocytopenia #Transaminitis #Pedro's gangrene/Progressive cellulitis status post I&D of right inner thigh/groin abscess/necrotizing fasciitis Patient presented to ED on 08/22 complaining of bilateral leg weakness. Patient was found to have right-sided groin redness and swelling and a pimple which had purulent discharge. CT pelvis reveled emphysema of the medial right thigh. 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 ID and surgical consultation was obtained immediately. Patient had surgical debridement on 08/22, tolerated well with no significant events, was extubated on 08/23. He was in ICU for 1 day after surgical debridement. * Transferred to general medicine floor from ICU on 08/23/2016 * Status post debridement on 08/22 and 08/24 * OR cultures growing gram-positive cocci, gram-negative rods and gram-positive rods * Continue IV meropenem and vancomycin day4 * ID recommendations appreciated * Will follow-up blood cultures * Follow-up or cultures * Optimal pain ibuprofen 600 for mild, Percocet 1 tab for moderate, Percocet 2 tabs for severe pain * We d/c Ridley catheter and central line * Monitor for fever, leukocytosis #Alcohol withdrawal -CIWA protocol -Last drink was 3 days ago -CIWA is 0 so far #Multiple sclerosis -Not on any medication -called Dr. 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 Acute necrotizing fasciitis s/p emergent debridemnet x2 2. History of multiple sclerosis 3. Alcohol dependence 4. History of MS 5. Leukocytosis 6. anemia post-op acute blood loss anemia 7. Constipation PLAN surgery , ID following , abx , catheter as per ID/surgery. monitor labs, cont current care, wound care add scheduled bowel regimen reinforced patient current management plan gi/dvt prophylaxis full code.
--- NOTE | 2016-08-25 08:05 | PN- General Surgery ---
See Addendum Subjective Subjective: No acute overnight events reported, patient is status post second debridement for fourniers gangrene, feeling some discomfort at surgical site but able to rest. Denies chest pain, shortness of breath and difficulty breathing. Denies nausea and vomitting. Objective Vital Signs and I&Os Vital Signs Date Time Temp Pulse Resp B/P B/P Pulse O2 O2 Flow FiO2 Mean Ox Delivery Rate 08/25 0414 98.1 71 20 150/82 94 Room Air 08/25 0039 98.8 63 20 138/74 94 Room Air 08/24 2000 98.1 88 20 132/70 92 Room Air 08/24 1656 98.1 67 18 130/80 95 Room Air 08/24 1217 98.6 68 18 108/54 95 Room Air 08/24 0833 98.7 64 18 112/56 94 Intake & Output 08/25 1600 08/25 0800 08/25 0000 08/24 1600 08/24 0800 08/24 0000 Intake Total 1300 800 240 Output Total 737 610 4714 1150 Balance -400 900 -450 -910 Intake, IV 600 800 Intake, Oral 700 240 Output, Urine 851 372 5742 1150 Physical Exam: General: Alert and oriented x3, no acute distress Cardiac: RRR, s1s2 Pulm: CTA bilaterally Abdomen: Non-tender, non-distended Extremities: Moves all extremities, skin distally warm and well perfused, surgical site packed with kerlix, erythema distal to incision appears to be slightly improved. Bilateral calves soft and non-tender. 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 Clinically he has improved, erythema appears less distal to incision. -Dakins soaked kerlix wtd dsg changes bid -Continue current pain regimen -May advance diet as tolerated today -Appreciate ID input regarding abx tx, sensitivities pending -Will continue to monitor erythema -Will d/w Dr. Hernandez
[2016-08-25 08:31] LABS: ABSOLUTE BASOPHIL COUNT 0 /CUMM (0.0-0.2); ABSOLUTE EOSINOPHIL COUNT 0.1 /CUMM (0.0-0.7); ABSOLUTE GRANULOCYTE CT 8.4 /CUMM (1.4-6.5); ABSOLUTE LYMPH COUNT 0.9 /CUMM (1.2-3.4); ABSOLUTE MONOCYTE COUNT 0.9 /CUMM (0.10-0.60); BASOPHIL % 0.2 % (0.0-2.0); EOSINOPHIL % 0.6 % (0-5); GRANULOCYTE % 82.1 % (42.2-75.2); HEMATOCRIT 35.2 % (42-52); MEAN CORPUSCULAR HGB 26.7 PG (27.0-31.0); MEAN CORPUSCULAR HGB CONC 33.7 G/DL (33.0-37.0); MEAN CORPUSCULAR VOLUME 79.2 FL (80.0-94.0); MEAN PLATELET VOLUME 9.6 FL (7.4-10.4); PLATELET COUNT 74 /CUMM (130-400); RBC DISTRIBUTION WIDTH 14.7 % (11.5-14.5); RED BLOOD CELL CT 4.44 /CUMM (4.70-6.10); WHITE BLOOD CELL COUNT 10.3 /CUMM (4.8-10.8)
--- NOTE | 2016-08-25 15:24 | PN- Infect Dx ---
Subjective Subjective: Afebrile. He notes some discomfort in the right groin Objective Last 24 Hrs of Vital Signs/I&O Vital Signs Date Time Temp Pulse Resp B/P B/P Pulse O2 O2 Flow FiO2 Mean Ox Delivery Rate 08/25 1508 97.8 79 18 130/66 95 Room Air 08/25 1155 98.2 70 18 120/60 94 Room Air 08/25 0816 98.1 66 18 154/72 96 Room Air 08/25 0414 98.1 71 20 150/82 94 Room Air 08/25 0400 98.1 71 20 150/82 08/25 0039 98.8 63 20 138/74 94 Room Air 08/25 0000 98.8 63 20 138/72 08/25 0000 94 Room Air 08/24 2000 98.1 88 20 132/70 92 Room Air 08/24 1656 98.1 67 18 130/80 95 Room Air Intake & Output 08/25 1600 08/25 0800 08/25 0000 Intake Total 969 00 4658 Output Total 450 400 400 Balance 200 -350 900 Intake, IV 250 0 600 Intake, Oral 400 50 700 Number 0 Bowel Movements Output, Urine 450 400 400 Patient 185 lb Weight Physical Exam Other Physical Findings: He appears comfortable in no acute distress Neck right IJ triple-lumen catheter remains in place with no inflammation at the site Extremities right thigh wound clean, with packing in place; decreased erythema, minimally tender to palpation Ridley catheter remains in place Results Last 24 Hours of Lab Results: Laboratory Tests 08/25 0615 Chemistry Sodium (137 - 145 mmol/L) 136 L Potassium (3.5 - 5.1 mmol/L) 3.9 Chloride (98 - 107 mmol/L) 105 Carbon Dioxide (22 - 30 mmol/L) 24 Anion Gap (5 - 16) 7 BUN (9 - 20 mg/dL) 15 Creatinine (0.7 - 1.2 mg/dL) 0.7 Estimated GFR (>60 ml/min) > 60 BUN/Creatinine Ratio (7 - 25 %) 21.4 Total Bilirubin (0.2 - 1.3 mg/dL) 1.0 Direct Bilirubin (< 0.4 mg/dL) 0.3 AST (17 - 59 U/L) 30 ALT (21 - 72 U/L) 67 Alkaline Phosphatase (< 127 U/L) 76 Total Protein (6.3 - 8.2 g/dL) 5.0 L Albumin (3.5 - 5.0 g/dL) 2.4 L Hematology CBC w Diff NO MAN DIFF REQ WBC (4.8 - 10.8 /CUMM) 10.3 RBC (4.70 - 6.10 /CUMM) 4.44 L Hgb (14.0 - 18.0 G/DL) 11.8 L Hct (42 - 52 %) 35.2 L MCV (80.0 - 94.0 FL) 79.2 L MCH (27.0 - 31.0 PG) 26.7 L RDW (11.5 - 14.5 %) 14.7 H Plt Count (130 - 400 /CUMM) 74 L MPV (7.4 - 10.4 FL) 9.6 Gran % (42.2 - 75.2 %) 82.1 H Lymphocytes % (20.5 - 51.1 %) 8.7 L Monocytes % (1.7 - 9.3 %) 8.4 Eosinophils % (0 - 5 %) 0.6 Basophils % (0.0 - 2.0 %) 0.2 Absolute Granulocytes (1.4 - 6.5 /CUMM) 8.4 H Absolute Lymphocytes (1.2 - 3.4 /CUMM) 0.9 L Absolute Monocytes (0.10 - 0.60 /CUMM) 0.9 H Absolute Eosinophils (0.0 - 0.7 /CUMM) 0.1 Absolute Basophils (0.0 - 0.2 /CUMM) 0 PUBS MCHC (33.0 - 37.0 G/DL) 33.7 Last 24 Hours of [place] Results: OR cultures August 22 positive for Staph aureus, with sensitivities pending, Enterococcus sensitive to Ampicillin and diphtheroids Blood cultures 2 August 22 negative Assessment/Plan Impression: Stable status post return to the OR yesterday for further debridement of the perineum, skin and subcutaneous tissue for progressive cellulitis in this patient who is now 3 days status post I&D of a right inner thigh/groin abscess consistent with Pedro's gangrene. He remains afebrile with white blood cell count now normal on Vancomycin and Meropenem, which can be continued pending OR cultures. Suggestion: 1. Follow-up final OR cultures 2. Remove right IJ triple lumen catheter 3. Would remove Ridley catheter if okay with surgery 4. Continue Vancomycin and Meropenem pending above
--- NOTE | 2016-08-25 15:27 | NUR ---
PTS SCHUMACHER REMOVED AT THIS TIME PER MD ORDER. PT DTV BETWEEN 2129 AND 2329. PT PROVIDED URINAL & AWARE. WILL CONTINUE TO MONITOR.
--- NOTE | 2016-08-25 15:44 | NUR ---
MD WOODS AT BEDSIDE TO REMOVE PTS RIJ TLC. WILL CONTINUE TO MONITOR.
[2016-08-26] VITALS (12 sets, daily range): BP systolic 124–146; BP diastolic 60–82
[2016-08-26 08:09] LABS: ABSOLUTE BASOPHIL COUNT 0 /CUMM (0.0-0.2); ABSOLUTE EOSINOPHIL COUNT 0.1 /CUMM (0.0-0.7); ABSOLUTE GRANULOCYTE CT 8.2 /CUMM (1.4-6.5); ABSOLUTE MONOCYTE COUNT 0.6 /CUMM (0.10-0.60); BASOPHIL % 0 % (0.0-2.0); EOSINOPHIL % 0.9 % (0-5); GRANULOCYTE % 82.8 % (42.2-75.2); HEMATOCRIT 39.2 % (42-52); MEAN CORPUSCULAR HGB 26.2 PG (27.0-31.0); MEAN CORPUSCULAR HGB CONC 33.2 G/DL (33.0-37.0); MEAN PLATELET VOLUME 9.6 FL (7.4-10.4); PLATELET COUNT 100 /CUMM (130-400); RBC DISTRIBUTION WIDTH 14.6 % (11.5-14.5); RED BLOOD CELL CT 4.96 /CUMM (4.70-6.10); WHITE BLOOD CELL COUNT 9.9 /CUMM (4.8-10.8)
--- NOTE | 2016-08-26 08:09 | PN- Housestaff ---
CHUCK REYNOLDS 08/26/16 0809: Subjective Follow-up For: #Pedro's gangrene #Alcohol withdrawal #Multiple sclerosis #Thrombocytopenia #Transaminitis Complaints: pain scale (0-10) Subjective: Patient was seen and examined this morning. He is alert awake and oriented to time place and person. No acute events were noticed overnight. He does report 3 out of 10 pain right medial thigh at the site of debridement Denies any fever, chills. Denies any nausea, vomiting, abdominal pain, chest pain or difficulty breathing. Vitals stable afebrile heart rate 66, respiratory rate 20, blood pressure 124/70 saturating at 98% on room air. no bowel movement Review of Systems Constitutional: Denies: chills, diaphoresis, fever, malaise. Objective Last 24 Hrs of Vital Signs/I&O Vital Signs Date Time Temp Pulse Resp B/P B/P Pulse O2 O2 Flow FiO2 Mean Ox Delivery Rate 08/26 0701 98.6 66 16 124/70 94 Room Air 08/26 0600 98.7 70 16 146/82 08/26 0400 98.7 70 16 146/82 08/26 0209 98.7 70 16 146/82 94 Room Air 08/26 0000 98.6 72 20 138/70 08/25 1943 98.6 72 20 138/70 95 Room Air 08/25 1508 97.8 79 18 130/66 95 Room Air 08/25 1155 98.2 70 18 120/60 94 Room Air 08/25 0816 98.1 66 18 154/72 96 Room Air Intake & Output 08/26 1600 08/26 0800 08/26 0000 Intake Total 510 980 Output Total 1175 775 Balance -665 205 Intake, IV 150 280 Intake, Oral 360 700 Output, Urine 1175 775 Physical Exam General Appearance: Alert, Oriented X3, Cooperative, No Acute Distress Skin: right medial thigh erythema HEENT: Atraumatic, PERRLA, EOMI, Mucous Membr. moist/pink Neck: Supple, No JVD, No thryomegaly Lymphatic: Cervical nl Cardiovascular: Normal S1, Normal S2 Lungs: Normal Air Movement Abdomen: Normal Bowel Sounds, Soft, No Tenderness Extremities: No Clubbing, No Cyanosis, No Edema, Normal Pulses Vascular: Pulses Symmetrical Current Medications: Current Medications Sig/Newton Start time Last Medication Dose Route Stop Time Status Admin Bisacodyl 5 MG DAILY PRN 08/24 1615 AC PO Ibuprofen 600 MG Q6P PRN 08/24 161 AC PO Lorazepam 0 Q1P PRN 08/24 1615 AC IV Meropenem 1 GM IQ8 08/24 1600 AC 08/26 IV 0807 Morphine Sulfate 2 MG Q2P PRN 08/24 1615 AC IV Nicotine 21 MG DAILY 08/25 1000 AC TOP Omeprazole 20 MG DAILY AC 08/24 1645 AC 08/26 PO 0545 Oxycodone/ 1 TAB Q6P PRN 08/24 161 AC Acetaminophen PO Oxycodone/ 2 TAB Q6P PRN 08/24 1615 AC 08/25 Acetaminophen PO 2030 Patient Medication 1 ED .STK-MED ONE 08/25 1337 DC Teaching ED 08/25 1338 Polyethylene Glycol 17 GM DAILY 08/25 1000 AC PO Senna/Docusate Sodium 2 TAB DAILY 08/25 1047 AC 08/25 PO 1425 Sodium Hypochlorite 1 SCOTT BID 08/25 1000 AC 08/25 TOP 2209 Vancomycin HCl 1,000 MG Q12 08/24 2200 AC 08/25 Sodium Chloride 250 ML IV 2030 Last 24 Hrs of Lab/[facility] Results Last 24 Hrs of Labs/Mics: Laboratory Tests 08/26/16 0710: Sodium Pending, Potassium Pending, Chloride Pending, Carbon Dioxide Pending, Anion Gap Pending, BUN Pending, Creatinine Pending, BUN/Creatinine Ratio Pending , CBC w Diff Pending, WBC Pending, RBC Pending, Hgb Pending, Hct Pending, MCV Pending, MCH Pending, RDW Pending, Plt Count Pending, MPV Pending, PUBS MCHC Pending Assessment/Plan Assessment: Mr. Mcgee is 60-year-old male with past medical history significant for chronic alcoholism, multiple sclerosis not on chronic treatment follows up with Dr. Millard presented to the [facility] with chief complaint of bilateral leg weakness and stiffness. The patient's symptoms started on Monday08/19/16 when his leg was more week and he went to [facility] and thought to be MS exacerbation, was given IV Solu -Medrol and valium and was discharged home. Patient presented to ED on 08/22 complaining of bilateral leg weakness. Patient was found to have right-sided groin redness and swelling and a pimple which had purulent discharge. CT pelvis reveled emphysema of the medial right thigh. 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 ID and surgical consultation was obtained immediately. Patient had surgical debridement on 08/22, tolerated well with no significant events, was extubated this morning 08/23, saturating well on room air 97%. Patient was started on vancomycin and meropenem. Vitals on admission febrile 101.3, tachycardia 128, resp rate 20, blood pressure 153/79, sating at 98 on 3 L Pertinent labs on admission Leukocytosis 15.8, hemoglobin 12 and hematocrit 37, platelets 60,[address] pelvis 08/22 IMPRESSION: Skin thickening, subcutaneous tissue edema and emphysema of the medial right thigh. Findings suggest presence of cellulitis and necrotizing fasciitis. There is no focal, walled off fluid collection. Mild reactive lymphadenopathy is present in the right groin. Problem list #Pedro's gangrene #Alcohol withdrawal #Multiple sclerosis #Thrombocytopenia #Transaminitis #Pedro's gangrene/Progressive cellulitis status post I&D of right inner thigh/groin abscess/necrotizing fasciitis Patient presented to ED on 08/22 complaining of bilateral leg weakness. Patient was found to have right-sided groin redness and swelling and a pimple which had purulent discharge. CT pelvis reveled emphysema of the medial right thigh. 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 ID and surgical consultation was obtained immediately. Patient had surgical debridement on 08/22, tolerated well with no significant events, was extubated on 08/23. He was in ICU for 1 day after surgical debridement. * Transferred to general medicine floor from ICU on 08/23/2016 * Status post debridement on 08/22 and 08/24 * OR cultures growing gram-positive cocci, gram-negative rods and gram-positive rods * Continue IV meropenem and vancomycin day5 * ID recommendations appreciated * Will follow-up blood cultures * Follow-up or cultures * Optimal pain ibuprofen 600 for mild, Percocet 1 tab for moderate, Percocet 2 tabs for severe pain * We d/c Ridley catheter and central line * Monitor for fever, leukocytosis #Alcohol withdrawal -CIWA protocol -Last drink was 3 days ago -CIWA is 0 so far #Multiple sclerosis -Not on any medication -called Dr. Millard's office for FY message that patient was admitted to ICU #Thrombocytopenia -Could be sepsis related versus alcoholism -No signs of active bleeding -Continue to monitor platelets #Transaminitis -AST 65, ALT 110, total troponin 2.1, direct 0.5, albumin 2.3, INR 1.25 -Repeat liver function test- improved Diet regular DVT prophlaxis Alps Code Full Problem List: 1. 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 Acute necrotizing fasciitis s/p emergent debridemnet x2 2. History of multiple sclerosis 3. Alcohol dependence 4. History of MS 5. Leukocytosis 6. anemia post-op acute blood loss anemia 7. Constipation PLAN surgery , ID following , abx , catheter reomved as per ID/surgery. monitor labs, cont current care, wound care bowel regimen with bowel movement+. reinforced patient current management plan. supportive care for MS, resume home meds. gi/dvt prophylaxis full code.
--- NOTE | 2016-08-26 10:38 | PN- General Surgery ---
Surgical Brief Attending Note Brief Attending Note: Wound improved. cultures show enterococcus and staph, sens pending. defer abx to ID. Continue dressing changes. No plan for further debridement. Anticipate VAC placement at bedside next week. Pt c/o not getting MS meds. He started baclofen last week. Now with severe spasm right leg. Would benefit from restarting.
--- NOTE | 2016-08-26 12:04 | PN- Infect Dx ---
Subjective Subjective: Afebrile. He complains of spasms in the right ankle. He does not report pain in the right groin/thigh area. Objective Last 24 Hrs of Vital Signs/I&O Vital Signs Date Time Temp Pulse Resp B/P B/P Pulse O2 O2 Flow FiO2 Mean Ox Delivery Rate 08/26 0701 98.6 66 16 124/70 94 Room Air 08/26 0600 98.7 70 16 146/82 08/26 0400 98.7 70 16 146/82 08/26 0209 98.7 70 16 146/82 94 Room Air 08/26 0000 98.6 72 20 138/70 08/25 1943 98.6 72 20 138/70 95 Room Air 08/25 1508 97.8 79 18 130/66 95 Room Air Intake & Output 08/26 1600 08/26 0800 08/26 0000 Intake Total 510 980 Output Total 1175 775 Balance -665 205 Intake, IV 150 280 Intake, Oral 360 700 Output, Urine 1175 775 Physical Exam Other Physical Findings: He appears mildly uncomfortable secondary to the spasms Extremities right thigh dressing intact, with resolution of the erythema; right ankle swelling, warmth, with no erythema, but with pain and limitation to extension of the ankle Results Last 24 Hours of Lab Results: Laboratory Tests 08/26 0710 Chemistry Sodium (137 - 145 mmol/L) 134 L Potassium (3.5 - 5.1 mmol/L) 4.3 Chloride (98 - 107 mmol/L) 104 Carbon Dioxide (22 - 30 mmol/L) 22 Anion Gap (5 - 16) 8 BUN (9 - 20 mg/dL) 12 Creatinine (0.7 - 1.2 mg/dL) 0.7 Estimated GFR (>60 ml/min) > 60 BUN/Creatinine Ratio (7 - 25 %) 17.1 Hematology CBC w Diff NO MAN DIFF REQ WBC (4.8 - 10.8 /CUMM) 9.9 RBC (4.70 - 6.10 /CUMM) 4.96 Hgb (14.0 - 18.0 G/DL) 13.0 L Hct (42 - 52 %) 39.2 L MCV (80.0 - 94.0 FL) 79.0 L MCH (27.0 - 31.0 PG) 26.2 L RDW (11.5 - 14.5 %) 14.6 H Plt Count (130 - 400 /CUMM) 100 L MPV (7.4 - 10.4 FL) 9.6 Gran % (42.2 - 75.2 %) 82.8 H Lymphocytes % (20.5 - 51.1 %) 10.4 L Monocytes % (1.7 - 9.3 %) 5.9 Eosinophils % (0 - 5 %) 0.9 Basophils % (0.0 - 2.0 %) 0 L Absolute Granulocytes (1.4 - 6.5 /CUMM) 8.2 H Absolute Lymphocytes (1.2 - 3.4 /CUMM) 1.0 L Absolute Monocytes (0.10 - 0.60 /CUMM) 0.6 Absolute Eosinophils (0.0 - 0.7 /CUMM) 0.1 Absolute Basophils (0.0 - 0.2 /CUMM) 0 PUBS MCHC (33.0 - 37.0 G/DL) 33.2 Last 24 Hours of [facility] Results: OR culture August 22 positive for Enterococcus sensitive to Ampicillin, Staph aureus sensitive to Oxacillin and diphtheroids Blood cultures 2 August 22 negative Assessment/Plan Impression: Stable status post further debridement of the perineum, skin and subcutaneous tissue 2 days ago for progressive cellulitis in this patient who is now 4 days status post I&D of a right inner thigh/groin abscess consistent with Pedro's gangrene. He remains afebrile with white blood cell count normal on Vancomycin and Meropenem, and his antibiotics can now be adjusted based on his final cultures. The diphtheroids likely represents a contaminant and does not require treatment. The significance of the right ankle inflammation is unclear, with spasms possibly secondary to his underlying multiple sclerosis, though this should not explain the inflammation. Suggestion: 1. Would add a uric acid to this morning's labs 2. X-ray of the right ankle 3. Discontinue Vancomycin and Meropenem 4. Begin Unasyn 3 g IV every 6 hours
--- NOTE | 2016-08-26 13:42 | NUR ---
Physical THerapy: Attempted to see pt for treatment this afternoon. Pt currently awaiting x-ray for ankle to r/o fx. Will follow up tomorrow after results of x-ray are available. Thank you.
--- NOTE | 2016-08-26 15:36 | NUR ---
1130- OFFERED PT OOB TO CHAIR. PT REFUSED AND STATED HE DID NOT WANT TO GET INTO THE CHAIR.
--- NOTE | 2016-08-26 15:47 | NUR ---
PT OFF FLOOR FOR X RAY
--- NOTE | 2016-08-26 16:27 | RADIOLOGY REPORT ---
EXAMINATION: XR ANKLE, RIGHT CLINICAL INFORMATION: Pain of the right ankle with swelling COMPARISON: None TECHNIQUE: AP, lateral, and mortise views of the right ankle. FINDINGS: No acute fracture or dislocation. Mild lateral soft tissue swelling. The ankle mortise is congruent. Small plantar heel spur. IMPRESSION: Mild lateral swelling. No acute osseous abnormality. Small plantar heel spur.
--- NOTE | 2016-08-26 19:26 | NUR ---
1602 PATIENT BACK ON FLOOR ALERT AND ORIENTED X 3. ON ROOM AIR. DENIES SHORTNESS OF BREATH VITAL SIGNS STABLE. DENIES CHEST PAIN. + PULSES. NO EDEMA. DENIES NUMBNESS/TINGLING. MEDICATION GIVEN FOR DISCOMFORT DSG TO BOTTOM IS C/D/I. WILL CONTINUE TO MONITOR
[2016-08-27 07:10] VITALS: BP 140/68
[2016-08-27 08:00] VITALS: BP 140/68
[2016-08-27 08:24] LABS: ABSOLUTE BASOPHIL COUNT 0 /CUMM (0.0-0.2); ABSOLUTE EOSINOPHIL COUNT 0.1 /CUMM (0.0-0.7); ABSOLUTE GRANULOCYTE CT 10.8 /CUMM (1.4-6.5); ABSOLUTE LYMPH COUNT 1.2 /CUMM (1.2-3.4); ABSOLUTE MONOCYTE COUNT 0.7 /CUMM (0.10-0.60); BASOPHIL % 0.1 % (0.0-2.0); EOSINOPHIL % 0.6 % (0-5); HEMATOCRIT 39.5 % (42-52); MEAN CORPUSCULAR HGB 26.3 PG (27.0-31.0); MEAN CORPUSCULAR HGB CONC 33.1 G/DL (33.0-37.0); MEAN CORPUSCULAR VOLUME 79.6 FL (80.0-94.0); MEAN PLATELET VOLUME 8.9 FL (7.4-10.4); RBC DISTRIBUTION WIDTH 14.6 % (11.5-14.5); RED BLOOD CELL CT 4.97 /CUMM (4.70-6.10); WHITE BLOOD CELL COUNT 12.7 /CUMM (4.8-10.8)
--- NOTE | 2016-08-27 08:44 | PN- Housestaff ---
CHUCK REYNOLDS 08/27/16 0843: Subjective Follow-up For: #Pedro's gangrene #Alcohol withdrawal #Multiple sclerosis #Thrombocytopenia #Transaminitis Complaints: pain scale (0-10) Subjective: Patient was seen and examined this morning. He is alert awake and oriented to time place and person. No acute events were noticed overnight. He does report 3 out of 10 pain right medial thigh at the site of debridement Denies any fever, chills. Denies any nausea, vomiting, abdominal pain, chest pain or difficulty breathing. Vitals stable afebrile heart rate 66, respiratory rate 20, blood pressure 124/70 saturating at 98% on room air. no bowel movement Patient with complaints of spasm in the medial right thigh, causing difficulty sleeping, baclofen was started. Review of Systems Constitutional: Denies: chills, diaphoresis, fever, malaise. Objective Last 24 Hrs of Vital Signs/I&O Vital Signs Date Time Temp Pulse Resp B/P B/P Pulse O2 O2 Flow FiO2 Mean Ox Delivery Rate 08/27 0710 98.3 76 20 140/68 95 Room Air 08/26 2245 98.7 69 18 138/60 95 Room Air 08/26 2200 98.5 73 18 142/60 08/26 2000 98.5 73 18 142/60 08/26 1830 98.5 73 18 142/60 96 Room Air 08/26 1800 98.5 81 18 140/64 08/26 1600 98.5 81 18 140/64 08/26 1434 98.5 81 18 140/64 96 Room Air 08/26 1415 Room Air Room Air Intake & Output 08/27 1600 08/27 0800 08/27 0000 Intake Total 530 300 Output Total 600 300 Balance -70 0 Intake, IV 130 Intake, Oral 400 300 Output, Urine 600 300 Physical Exam General Appearance: Alert, Oriented X3, Cooperative, No Acute Distress Skin: right medial thigh erythema HEENT: Atraumatic, PERRLA Neck: Supple, No JVD Lymphatic: Cervical nl Cardiovascular: Normal S1, Normal S2 Lungs: Normal Air Movement Abdomen: Normal Bowel Sounds, Soft, No Tenderness Extremities: No Clubbing, No Cyanosis, No Edema Vascular: Pulses Symmetrical Assessment/Plan Assessment: Mr. Mcgee is 60-year-old male with past medical history significant for chronic alcoholism, multiple sclerosis not on chronic treatment follows up with Dr. Millard presented to the [facility] with chief complaint of bilateral leg weakness and stiffness. The patient's symptoms started on Monday08/19/16 when his leg was more week and he went to [facility] and thought to be MS exacerbation, was given IV Solu -Medrol and valium and was discharged home. Patient presented to ED on 08/22 complaining of bilateral leg weakness. Patient was found to have right-sided groin redness and swelling and a pimple which had purulent discharge. CT pelvis reveled emphysema of the medial right thigh. 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 ID and surgical consultation was obtained immediately. Patient had surgical debridement on 08/22, tolerated well with no significant events, was extubated this morning 08/23, saturating well on room air 97%. Patient was started on vancomycin and meropenem. Vitals on admission febrile 101.3, tachycardia 128, resp rate 20, blood pressure 153/79, sating at 98 on 3 L Pertinent labs on admission Leukocytosis 15.8, hemoglobin 12 and hematocrit 37, platelets 60,[address] pelvis 08/22 IMPRESSION: Skin thickening, subcutaneous tissue edema and emphysema of the medial right thigh. Findings suggest presence of cellulitis and necrotizing fasciitis. There is no focal, walled off fluid collection. Mild reactive lymphadenopathy is present in the right groin. Problem list #Pedro's gangrene #Alcohol withdrawal #Multiple sclerosis #Thrombocytopenia #Transaminitis #Pedro's gangrene/Progressive cellulitis status post I&D of right inner thigh/groin abscess/necrotizing fasciitis Patient presented to ED on 08/22 complaining of bilateral leg weakness. Patient was found to have right-sided groin redness and swelling and a pimple which had purulent discharge. CT pelvis reveled emphysema of the medial right thigh. 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 ID and surgical consultation was obtained immediately. Patient had surgical debridement on 08/22, tolerated well with no significant events, was extubated on 08/23. He was in ICU for 1 day after surgical debridement. * Transferred to general medicine floor from ICU on 08/23/2016 * Status post debridement on 08/22 and 08/24 * OR cultures growing gram-positive cocci, gram-negative rods and gram-positive rods-MSSA,ENTEROCOCCUS. * on IV meropenem and vancomycin for 5days, later discontinued * He was started on IV Unasyn-day 2 * ID recommendations appreciated * Optimal pain ibuprofen 600 for mild, Percocet 1 tab for moderate, Percocet 2 tabs for severe pain * We d/c Ridley catheter and central line * Monitor for fever, leukocytosis #Alcohol withdrawal -CIWA protocol -Last drink was 3 days ago -CIWA is 0 so far #Multiple sclerosis -Not on any medication -called Dr. Millard's office for message that patient was admitted to ICU Continue home medication baclofen #Thrombocytopenia -Could be sepsis related versus alcoholism -No signs of active bleeding -Continue to monitor platelets #Transaminitis -AST 65, ALT 110, total troponin 2.1, direct 0.5, albumin 2.3, INR 1.25 -Repeat liver function test- improved Right ankle pain IMPRESSION: Mild lateral swelling. No acute osseous abnormality. Small plantar heel spur. Diet regular DVT prophlaxis Alps Code Full Problem List: 1. 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 Acute necrotizing fasciitis s/p emergent debridemnet x2 2. History of multiple sclerosis 3. Alcohol dependence 4. History of MS 5. Leukocytosis 6. anemia post-op acute blood loss anemia 7. Constipation PLAN surgery , ID following , abx , catheter reomved as per ID/surgery. monitor labs, cont current care, wound care likely wound vac this week as per surgery. bowel regimen with bowel movement+. reinforced patient current management plan. supportive care for MS, resume home meds. gi/dvt prophylaxis full code.
[2016-08-27 10:12] LABS: PLATELET COUNT 152 /CUMM (130-400)
--- NOTE | 2016-08-27 10:16 | PN- General Surgery ---
Subjective Subjective: Patient with complaints of spasm in the medial right thigh, causing difficulty sleeping, baclofen was started. nO FEVER OR ACUTE EVENTS OVERNIGHT Objective Vital Signs and I&Os Vital Signs Date Time Temp Pulse Resp B/P B/P Pulse O2 O2 Flow FiO2 Mean Ox Delivery Rate 08/27 0710 98.3 76 20 140/68 95 Room Air 08/26 2245 98.7 69 18 138/60 95 Room Air 08/26 2200 98.5 73 18 142/60 08/26 2000 98.5 73 18 142/60 08/26 1830 98.5 73 18 142/60 96 Room Air 08/26 1800 98.5 81 18 140/64 08/26 1600 98.5 81 18 140/64 08/26 1434 98.5 81 18 140/64 96 Room Air 08/26 1415 Room Air Room Air Intake & Output 08/27 1600 08/27 0800 08/27 0000 08/26 1600 08/26 0800 08/26 0000 Intake Total 055 021 1416 510 980 Output Total 010 145 5565 1175 775 Balance -70 0 -250 -665 205 Intake, IV 130 280 150 280 Intake, Oral 400 300 720 360 700 Number 2 Bowel Movements Output, Urine 691 349 5087 1175 775 Physical Exam: Well-developed well-nourished no apparent distress. HEENT: Atraumatic, extraocular motion intact Neck: Supple, no lymphadenopathy Respiratory: No respiratory distress Abdomen: Soft nontender nondistended Extremities: No edema, no calf pain Right proximal thigh and groin perianal area wound is clean, no necrotic tissue, no discharge or odor. Wet-to-dry Deakins and normal saline dressing with packing was done at the bedside by myself with nursing. Neuro: Alert and oriented x3 Psych: Mood affect normal, normal memory normal judgment. 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
[2016-08-27 14:29] VITALS: BP 138/70
[2016-08-27 23:58] VITALS: BP 134/64
[2016-08-28] VITALS: BP 134/54
[2016-08-28 06:57] VITALS: BP 130/64
[2016-08-28 07:50] LABS: ABSOLUTE BASOPHIL COUNT 0 /CUMM (0.0-0.2); ABSOLUTE EOSINOPHIL COUNT 0.1 /CUMM (0.0-0.7); ABSOLUTE GRANULOCYTE CT 6.5 /CUMM (1.4-6.5); ABSOLUTE LYMPH COUNT 1.1 /CUMM (1.2-3.4); ABSOLUTE MONOCYTE COUNT 0.7 /CUMM (0.10-0.60); BASOPHIL % 0.2 % (0.0-2.0); EOSINOPHIL % 1.4 % (0-5); GRANULOCYTE % 77.1 % (42.2-75.2); HEMATOCRIT 38.6 % (42-52); MEAN CORPUSCULAR HGB 26.4 PG (27.0-31.0); MEAN CORPUSCULAR HGB CONC 33.4 G/DL (33.0-37.0); MEAN CORPUSCULAR VOLUME 79.2 FL (80.0-94.0); MEAN PLATELET VOLUME 8.7 FL (7.4-10.4); PLATELET COUNT 202 /CUMM (130-400); RBC DISTRIBUTION WIDTH 14.8 % (11.5-14.5); RED BLOOD CELL CT 4.88 /CUMM (4.70-6.10); WHITE BLOOD CELL COUNT 8.5 /CUMM (4.8-10.8)
--- NOTE | 2016-08-28 07:56 | PN- General Surgery ---
See Addendum Subjective Subjective: No pain at R groin incision, c/o occasional R leg spasms, no n/v/cp/sob/f, +uo, low appetite but tolerating diet Objective Vital Signs and I&Os Vital Signs Date Time Temp Pulse Resp B/P B/P Pulse O2 O2 Flow FiO2 Mean Ox Delivery Rate 08/28 0657 98.1 69 20 130/64 95 Room Air 08/28 0000 Room Air 08/28 0000 98.2 74 20 134/54 08/27 2358 98.2 74 20 134/64 96 Room Air 08/27 1429 97.9 74 18 138/70 94 Room Air 08/27 0800 98.3 76 20 140/68 Intake & Output 08/28 0808/28 0000 08/27 1600 08/27 0808/27 0000 08/26 1600 Intake Total 420 1060 700 836 009 2866 Output Total 561 849 0531 604 925 2522 Balance -30 560 -750 -70 0 -250 Intake, IV 120 260 100 130 280 Intake, Oral 300 800 600 400 300 720 Number 1 2 Bowel Movements Output, Urine 145 334 1051 365 403 9424 Physical Exam: GEN: NAD CARD: s1s2 RRR PULM: CTAB GROIN/WOUND: dressing with serosang drainage. Dsg changed: wound bed pink, some fibrin, no necrosis, no purulence, no foul smell, wound edges clean. repacked with kerlex (1) soaked in Dakins, tolerated well. EXT: calves soft nt, +pedal pulses bl Results Last 48 Hours of Labs: Laboratory Tests 08/28 08/27 0645 0650 Chemistry Sodium (137 - 145 mmol/L) 135 L 134 L Potassium (3.5 - 5.1 mmol/L) 4.2 4.1 Chloride (98 - 107 mmol/L) 101 104 Carbon Dioxide (22 - 30 mmol/L) 25 21 L Anion Gap (5 - 16) 9 9 BUN (9 - 20 mg/dL) 14 12 Creatinine (0.7 - 1.2 mg/dL) 0.7 0.6 L Estimated GFR (>60 ml/min) > 60 > 60 BUN/Creatinine Ratio (7 - 25 %) 20.0 20.0 Hematology CBC w Diff NO MAN DIFF REQ NO MAN DIFF REQ WBC (4.8 - 10.8 /CUMM) 8.5 12.7 H RBC (4.70 - 6.10 /CUMM) 4.88 4.97 Hgb (14.0 - 18.0 G/DL) 12.9 L 13.1 L Hct (42 - 52 %) 38.6 L 39.5 L MCV (80.0 - 94.0 FL) 79.2 L 79.6 L MCH (27.0 - 31.0 PG) 26.4 L 26.3 L RDW (11.5 - 14.5 %) 14.8 H 14.6 H Plt Count (130 - 400 /CUMM) 202 152 MPV (7.4 - 10.4 FL) 8.7 8.9 Gran % (42.2 - 75.2 %) 77.1 H 85.0 H Lymphocytes % (20.5 - 51.1 %) 13.2 L 9.1 L Monocytes % (1.7 - 9.3 %) 8.1 5.2 Eosinophils % (0 - 5 %) 1.4 0.6 Basophils % (0.0 - 2.0 %) 0.2 0.1 Absolute Granulocytes (1.4 - 6.5 /CUMM) 6.5 10.8 H Absolute Lymphocytes (1.2 - 3.4 /CUMM) 1.1 L 1.2 Absolute Monocytes (0.10 - 0.60 /CUMM) 0.7 H 0.7 H Absolute Eosinophils (0.0 - 0.7 /CUMM) 0.1 0.1 Absolute Basophils (0.0 - 0.2 /CUMM) 0 0 PUBS MCHC (33.0 - 37.0 G/DL) 33.4 33.1 Assessment/Plan Assessment/Plan A: 60M POD4 sp 2nd debridement right groin vini's gangrene, POD6 sp initial debridement, normalized WBC, wound bed clean and improved, stable. P: efrain dsg change daily abx per ID likely wound vac application early this week continue medical mgmt will dw attending
--- NOTE | 2016-08-28 08:21 | PN- Housestaff ---
CHUCK REYNOLDS 08/28/16 0821: Subjective Follow-up For: #Pedro's gangrene #Alcohol withdrawal #Multiple sclerosis #Thrombocytopenia #Transaminitis Complaints: pain scale (0-10) Subjective: Patient was seen and examined this morning. He is alert awake and oriented to time place and person. No acute events were noticed overnight. He does report mild pain -right medial thigh at the site of debridement Denies any fever, chills. Denies any nausea, vomiting, abdominal pain, chest pain or difficulty breathing. Vitals stable afebrile heart rate 66, respiratory rate 20, blood pressure 124/70 saturating at 98% on room air. Patient with complaints of spasm in the medial right thigh, causing difficulty sleeping, baclofen was started. Review of Systems Constitutional: Denies: chills, diaphoresis, fever, malaise. Objective Last 24 Hrs of Vital Signs/I&O Vital Signs Date Time Temp Pulse Resp B/P B/P Pulse O2 O2 Flow FiO2 Mean Ox Delivery Rate 08/28 0657 98.1 69 20 130/64 95 Room Air 08/28 0000 Room Air 08/28 0000 98.2 74 20 134/54 08/27 2358 98.2 74 20 134/64 96 Room Air 08/27 1429 97.9 74 18 138/70 94 Room Air Intake & Output 08/28 1600 08/28 0800 08/28 0000 Intake Total 420 1060 Output Total 400 450 500 Balance -400 -30 560 Intake, IV 120 260 Intake, Oral 300 800 Number 1 Bowel Movements Output, Urine 400 450 500 Physical Exam General Appearance: Alert, Oriented X3, Cooperative, No Acute Distress Skin: No Rashes, No Breakdown HEENT: Atraumatic, PERRLA, EOMI, Mucous Membr. moist/pink Neck: Supple, No JVD Lymphatic: Axillary nl, Cervical nl Cardiovascular: Normal S1, Normal S2 Lungs: Normal Air Movement Abdomen: Normal Bowel Sounds, Soft, No Tenderness Extremities: No Clubbing, No Cyanosis, No Edema Vascular: Normal Pulses, Pulses Symmetrical Current Medications: Current Medications Sig/Newton Start time Last Medication Dose Route Stop Time Status Admin Ampicillin Sodium/ 3,000 MG Q6H 08/26 1500 AC 08/28 Sulbactam Sodium IV 0855 Sodium Chloride 100 ML Baclofen 10 MG 4 TIMES/DAY 08/26 1044 AC 08/28 PO 0856 Bisacodyl 5 MG DAILY PRN 08/24 161 AC PO Ibuprofen 600 MG Q6P PRN 08/24 161 AC PO Lorazepam 0 Q1P PRN 08/24 161 AC IV Morphine Sulfate 2 MG Q2P PRN 08/24 161 AC IV Nicotine 21 MG DAILY 08/25 1000 AC TOP Omeprazole 20 MG DAILY AC 08/24 1645 AC 08/28 PO 0558 Oxycodone/ 1 TAB Q6P PRN 08/24 1615 AC 08/26 Acetaminophen PO 2214 Oxycodone/ 2 TAB Q6P PRN 08/24 1615 AC 08/28 Acetaminophen PO 0902 Polyethylene Glycol 17 GM DAILY 08/25 1000 AC PO Senna/Docusate Sodium 2 TAB DAILY 08/25 1047 AC 08/26 PO 1042 Sodium Hypochlorite 1 SCOTT BID 08/25 1000 AC 08/28 TOP 1027 Last 24 Hrs of Lab/[place] Results Last 24 Hrs of Labs/Mics: Laboratory Tests 08/28/16 0645: Anion Gap 9, Estimated GFR > 60, BUN/Creatinine Ratio 20.0, CBC w Diff NO MAN DIFF REQ, RBC 4.88, MCV 79.2 L, MCH 26.4 L, RDW 14.8 H, MPV 8.7, Gran % 77.1 H, Lymphocytes % 13.2 L, Monocytes % 8.1, Eosinophils % 1.4, Basophils % 0.2, Absolute Granulocytes 6.5, Absolute Lymphocytes 1.1 L, Absolute Monocytes 0.7 H, Absolute Eosinophils 0.1, Absolute Basophils 0, PUBS MCHC 33.4 Assessment/Plan Assessment: Mr. Mcgee is 60-year-old male with past medical history significant for chronic alcoholism, multiple sclerosis not on chronic treatment follows up with Dr. Millard presented to the [facility] with chief complaint of bilateral leg weakness and stiffness. The patient's symptoms started on Monday08/19/16 when his leg was more week and he went to [facility] and thought to be MS exacerbation, was given IV Solu -Medrol and valium and was discharged home. Patient presented to ED on 08/22 complaining of bilateral leg weakness. Patient was found to have right-sided groin redness and swelling and a pimple which had purulent discharge. CT pelvis reveled emphysema of the medial right thigh. 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 ID and surgical consultation was obtained immediately. Patient had surgical debridement on 08/22, tolerated well with no significant events, was extubated this morning 08/23, saturating well on room air 97%. Patient was started on vancomycin and meropenem. Vitals on admission febrile 101.3, tachycardia 128, resp rate 20, blood pressure 153/79, sating at 98 on 3 L Pertinent labs on admission Leukocytosis 15.8, hemoglobin 12 and hematocrit 37, platelets 60,[address] pelvis 08/22 IMPRESSION: Skin thickening, subcutaneous tissue edema and emphysema of the medial right thigh. Findings suggest presence of cellulitis and necrotizing fasciitis. There is no focal, walled off fluid collection. Mild reactive lymphadenopathy is present in the right groin. Problem list #Pedro's gangrene #Alcohol withdrawal #Multiple sclerosis #Thrombocytopenia #Transaminitis #Pedro's gangrene/Progressive cellulitis status post I&D of right inner thigh/groin abscess/necrotizing fasciitis Patient presented to ED on 08/22 complaining of bilateral leg weakness. Patient was found to have right-sided groin redness and swelling and a pimple which had purulent discharge. CT pelvis reveled emphysema of the medial right thigh. 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 ID and surgical consultation was obtained immediately. Patient had surgical debridement on 08/22, tolerated well with no significant events, was extubated on 08/23. He was in ICU for 1 day after surgical debridement. * Transferred to general medicine floor from ICU on 08/23/2016 * Status post debridement on 08/22 and 08/24 * OR cultures growing gram-positive cocci, gram-negative rods and gram-positive rods-MSSA,ENTEROCOCCUS. * on IV meropenem and vancomycin for 5days, later discontinued * He was started on IV Unasyn-day 3 * ID recommendations appreciated * Optimal pain ibuprofen 600 for mild, Percocet 1 tab for moderate, Percocet 2 tabs for severe pain * We d/c Ridley catheter and central line * Monitor for fever, leukocytosis #Alcohol withdrawal -CIWA protocol -Last drink was 3 days ago -CIWA is 0 so far #Multiple sclerosis -Not on any medication -called Dr. Millard's office for message that patient was admitted to ICU Continue home medication baclofen #Thrombocytopenia -Could be sepsis related versus alcoholism -No signs of active bleeding -Continue to monitor platelets #Transaminitis -AST 65, ALT 110, total troponin 2.1, direct 0.5, albumin 2.3, INR 1.25 -Repeat liver function test- improved Right ankle pain IMPRESSION: Mild lateral swelling. No acute osseous abnormality. Small plantar heel spur. Diet regular DVT prophlaxis Alps Code Full Problem List: 1. 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 Acute necrotizing fasciitis s/p emergent debridemnet x2 2. History of multiple sclerosis 3. Alcohol dependence 4. History of MS 5. Leukocytosis 6. anemia post-op acute blood loss anemia 7. Constipation PLAN surgery , ID following , abx , catheter reomved as per ID/surgery. monitor labs, cont current care, wound care likely wound vac this week as per surgery. bowel regimen with bowel movement+. reinforced patient current management plan. supportive care for MS, resume home meds. gi/dvt prophylaxis full code.
--- NOTE | 2016-08-28 11:00 | PN- Infect Dx ---
Subjective Subjective: Afebrile without complaints. He continues to have occasional spasms in the right leg. Objective Last 24 Hrs of Vital Signs/I&O Vital Signs Date Time Temp Pulse Resp B/P B/P Pulse O2 O2 Flow FiO2 Mean Ox Delivery Rate 08/28 0657 98.1 69 20 130/64 95 Room Air 08/28 0000 Room Air 08/28 0000 98.2 74 20 134/54 08/27 2358 98.2 74 20 134/64 96 Room Air 08/27 1429 97.9 74 18 138/70 94 Room Air Intake & Output 08/28 1600 08/28 0800 08/28 0000 Intake Total 420 1060 Output Total 450 500 Balance -30 560 Intake, IV 120 260 Intake, Oral 300 800 Number 1 Bowel Movements Output, Urine 450 500 Physical Exam Other Physical Findings: He appears comfortable in no acute distress Extremities right thigh dressing intact, with no evidence of erythema; right ankle with less discomfort on movement Results Last 24 Hours of Lab Results: Laboratory Tests 08/28 0645 Chemistry Sodium (137 - 145 mmol/L) 135 L Potassium (3.5 - 5.1 mmol/L) 4.2 Chloride (98 - 107 mmol/L) 101 Carbon Dioxide (22 - 30 mmol/L) 25 Anion Gap (5 - 16) 9 BUN (9 - 20 mg/dL) 14 Creatinine (0.7 - 1.2 mg/dL) 0.7 Estimated GFR (>60 ml/min) > 60 BUN/Creatinine Ratio (7 - 25 %) 20.0 Hematology CBC w Diff NO MAN DIFF REQ WBC (4.8 - 10.8 /CUMM) 8.5 RBC (4.70 - 6.10 /CUMM) 4.88 Hgb (14.0 - 18.0 G/DL) 12.9 L Hct (42 - 52 %) 38.6 L MCV (80.0 - 94.0 FL) 79.2 L MCH (27.0 - 31.0 PG) 26.4 L RDW (11.5 - 14.5 %) 14.8 H Plt Count (130 - 400 /CUMM) 202 MPV (7.4 - 10.4 FL) 8.7 Gran % (42.2 - 75.2 %) 77.1 H Lymphocytes % (20.5 - 51.1 %) 13.2 L Monocytes % (1.7 - 9.3 %) 8.1 Eosinophils % (0 - 5 %) 1.4 Basophils % (0.0 - 2.0 %) 0.2 Absolute Granulocytes (1.4 - 6.5 /CUMM) 6.5 Absolute Lymphocytes (1.2 - 3.4 /CUMM) 1.1 L Absolute Monocytes (0.10 - 0.60 /CUMM) 0.7 H Absolute Eosinophils (0.0 - 0.7 /CUMM) 0.1 Absolute Basophils (0.0 - 0.2 /CUMM) 0 PUBS MCHC (33.0 - 37.0 G/DL) 33.4 Last 24 Hours of [place]arias Results: No recent cultures Recent Imaging Studies: X-ray of the right ankle mild swelling laterally Assessment/Plan Impression: Overall improved with temperatures and white blood cell count normal on Unasyn status post debridement of the perineum, skin and subcutaneous tissue 4 days ago for progressive cellulitis now 6 days status post I&D of a right inner thigh /groin abscess consistent with Pedro's gangrene. Suggestion: 1. Continue Unasyn
[2016-08-28 14:26] VITALS: BP 140/80
[2016-08-28 22:00] VITALS: BP 122/60
[2016-08-29] VITALS: BP 122/60
[2016-08-29 06:00] VITALS: BP 134/66
[2016-08-29 06:39] VITALS: BP 134/66
--- NOTE | 2016-08-29 08:12 | PN- Housestaff ---
YAIR DYE,LUCILA 08/29/16 0812: Subjective Follow-up For: #Pedro's gangrene #Alcohol withdrawal #Multiple sclerosis #Thrombocytopenia #Transaminitis Complaints: no complaints Subjective: Patient was seen and examined at the bed side. He has no active complaints. No acute events were noticed overnight Review of Systems Constitutional: Denies: no symptoms. Objective Last 24 Hrs of Vital Signs/I&O Vital Signs Date Time Temp Pulse Resp B/P B/P Pulse O2 O2 Flow FiO2 Mean Ox Delivery Rate 08/29 2257 97.9 64 20 130/60 95 Room Air 08/29 1533 99.2 73 20 128/66 98 08/29 0639 98.1 62 18 134/66 95 Room Air 08/29 0600 98.1 62 18 134/66 Intake & Output 08/30 0800 08/30 0000 08/29 1600 Intake Total 720 Output Total 150 500 Balance -150 220 Intake, Oral 720 Output, Urine 150 500 Physical Exam General Appearance: Alert, Oriented X3, Cooperative, No Acute Distress Cardiovascular: Normal S1, Normal S2 Lungs: Clear to Auscultation, Normal Air Movement Abdomen: Soft, No Tenderness Extremities: No Clubbing, No Cyanosis, No Edema Vascular: Normal Pulses, Pulses Symmetrical Current Medications: Current Medications Sig/Newton Start time Last Medication Dose Route Stop Time Status Admin Ampicillin Sodium/ 3,000 MG Q6H 08/26 1500 AC 08/30 Sulbactam Sodium IV 0209 Sodium Chloride 100 ML Baclofen 10 MG 4 TIMES/DAY 08/26 1044 AC 08/29 PO 2133 Bisacodyl 5 MG DAILY PRN 08/24 1615 AC PO Ibuprofen 600 MG Q6P PRN 08/24 161 AC PO Lorazepam 0 Q1P PRN 08/24 161 AC IV Morphine Sulfate 2 MG Q2P PRN 08/24 161 AC IV Nicotine 21 MG DAILY 08/25 1000 AC TOP Omeprazole 20 MG DAILY AC 08/24 1645 AC 08/29 PO 0449 Oxycodone/ 1 TAB Q6P PRN 08/24 1615 AC 08/29 Acetaminophen PO 1520 Oxycodone/ 2 TAB Q6P PRN 08/24 1615 AC 08/29 Acetaminophen PO 2133 Polyethylene Glycol 17 GM DAILY 08/25 1000 AC 08/29 PO 0912 Senna/Docusate Sodium 2 TAB DAILY 08/25 1047 AC 08/29 PO 0911 Sodium Hypochlorite 1 SCOTT BID 08/25 1000 AC 08/29 TOP 2250 Assessment/Plan Assessment: Mr. Mcgee is 60-year-old male with past medical history significant for chronic alcoholism, multiple sclerosis not on chronic treatment follows up with Dr. Millard presented to the [facility] with chief complaint of bilateral leg weakness and stiffness. The patient's symptoms started on Monday08/19/16 when his leg was more week and he went to [facility] and thought to be MS exacerbation, was given IV Solu -Medrol and valium and was discharged home. Patient presented to ED on 08/22 complaining of bilateral leg weakness. Patient was found to have right-sided groin redness and swelling and a pimple which had purulent discharge. CT pelvis reveled emphysema of the medial right thigh. 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 ID and surgical consultation was obtained immediately. Patient had surgical debridement on 08/22, tolerated well with no significant events, was extubated this morning 08/23, saturating well on room air 97%. Patient was started on vancomycin and meropenem. CT pelvis 08/22 IMPRESSION: Skin thickening, subcutaneous tissue edema and emphysema of the medial right thigh. Findings suggest presence of cellulitis and necrotizing fasciitis. There is no focal, walled off fluid collection. Mild reactive lymphadenopathy is present in the right groin. Problem list #Pedro's gangrene #Alcohol withdrawal #Multiple sclerosis #Thrombocytopenia #Transaminitis PLAN - NPO for wound Vac tmr. #Pedro's gangrene/Progressive cellulitis status post I&D of right inner thigh/groin abscess/necrotizing fasciitis Patient presented to ED on 08/22 complaining of bilateral leg weakness. Patient was found to have right-sided groin redness and swelling and a pimple which had purulent discharge. CT pelvis reveled emphysema of the medial right thigh. 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 ID and surgical consultation was obtained immediately. Patient had surgical debridement on 08/22, tolerated well with no significant events, was extubated on 08/23. He was in ICU for 1 day after surgical debridement. * Transferred to general medicine floor from ICU on 08/23/2016 * Status post debridement on 08/22 and 08/24 * OR cultures growing gram-positive cocci, gram-negative rods and gram-positive rods-MSSA,ENTEROCOCCUS. * on IV meropenem and vancomycin for 5days, later discontinued * He was started on IV Unasyn-day 3 * ID recommendations appreciated * Optimal pain ibuprofen 600 for mild, Percocet 1 tab for moderate, Percocet 2 tabs for severe pain * We d/c Ridley catheter and central line * Monitor for fever, leukocytosis #Alcohol withdrawal -[facility] protocol #Multiple sclerosis -Not on any medication -called Dr. Millard's office for message that patient was admitted to ICU -Continue home medication baclofen #Thrombocytopenia -Could be sepsis related versus alcoholism -No signs of active bleeding -Continue to monitor platelets #Transaminitis -AST 65, ALT 110, total troponin 2.1, direct 0.5, albumin 2.3, INR 1.25 -Repeat liver function test- improved Right ankle pain IMPRESSION: Mild lateral swelling. No acute osseous abnormality. Small plantar heel spur. Diet regular DVT prophlaxis Alps Code Full Problem List: 1. Necrotizing fasciitis 2. 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 Sepsis Pain Ratin Pain Location: at site of wound Pain Goal: Remain pain free Pain Plan: mild to moderate Tomorrow's Labs & Rationales: cbc,bep DVT/Prophylaxis: mechanical, pharmacological ANDRE FABIAN 08/29/16 0955: Attending MD Review Statement Attending Statement Attending MD Statement: examined this patient, discuss w/resident/PA/TRIP MOTOR OPERATOR, agreed w/resident/PA/TRIP MOTOR OPERATOR, discussed with family, reviewed EMR data (avail), discussed with nursing, discussed with case mgmt, reviewed images, amended to note Attending Assessment/Plan: Assessment 1. Acute necrotizing fasciitis s/p emergent debridemnet x2 2. History of multiple sclerosis 3. Alcohol dependence 4. History of MS 5. Leukocytosis 6. anemia post-op acute blood loss anemia 7. Constipation PLAN surgery , ID following , abx , catheter reomved as per ID/surgery. monitor labs, cont current care, wound care likely wound vac this week as per surgery. bowel regimen with bowel movement+. reinforced patient current management plan. supportive care for MS, resume home meds. gi/dvt prophylaxis full code. plan of care d/mon patient.
[2016-08-29 15:33] VITALS: BP 128/66
--- NOTE | 2016-08-29 17:46 | PN- General Surgery ---
Surgical Brief Attending Note Brief Attending Note: pt seen and examined today, VSS afebrile, WBC nl yesterday, nurse changed dressing earlier, overall improving - for vac tomorrow
[2016-08-29 22:57] VITALS: BP 130/60
--- NOTE | 2016-08-30 01:14 | Event Note ---
Event Note Event Note: Patient has been here since 08/22, only scoring anxiety on CIWA, not getting ativan. CIWA discontinued.
--- NOTE | 2016-08-30 02:48 | NUR ---
PATIENT C/O RIGHT LEG SPASM. NO C/O PAIN. PATIENT WAS REPOSITIONED WITHOUT RLIEF. WARM SOCK PPLIED TO AREA OF SPASM. MD MORAN AWARE. WILL CONTINUE TO MONITOR.
--- NOTE | 2016-08-30 03:15 | NUR ---
PATIENT RE-ASSESSED FOR RIGHT LEG SPASM. PATIENT EXPRESSES SOME RELIEF. WILL CONTINUE TO MONITOR.
--- NOTE | 2016-08-30 03:35 | NUR ---
PATIENT RE-ASSESSED FOR RIGHT LEG SPASM. PATIENT EXPRESSES COMPLETE RELIEF. WILL CINTINUE TO MONITOR.
--- NOTE | 2016-08-30 07:13 | PN- Housestaff ---
CHUCK REYNOLDS 08/30/16 0712: Subjective Follow-up For: #Pedro's gangrene #Alcohol withdrawal #Multiple sclerosis #Thrombocytopenia #Transaminitis Complaints: pain scale (0-10) Subjective: Patient was seen and examined this morning. He is alert awake and oriented to time place and person. No acute events were noticed overnight. He does report mild pain -right medial thigh at the site of debridement Denies any fever, chills. Denies any nausea, vomiting, abdominal pain, chest pain or difficulty breathing. Vitals stable afebrile heart rate 66, respiratory rate 20, blood pressure 124/70 saturating at 98% on room air. Patient with complaints of spasm in the medial right thigh and right leg, causing difficulty sleeping, baclofen was started. Review of Systems Constitutional: Denies: chills, diaphoresis, fever, malaise. Objective Last 24 Hrs of Vital Signs/I&O Vital Signs Date Time Temp Pulse Resp B/P B/P Pulse O2 O2 Flow FiO2 Mean Ox Delivery Rate 08/30 1419 98.2 77 20 120/60 96 08/30 1158 Room Air Room Air 08/30 0730 98.7 61 20 100/60 96 Room Air 08/29 2257 97.9 64 20 130/60 95 Room Air Intake & Output 08/30 1600 08/30 0800 08/30 0000 Intake Total 1620 Output Total 550 650 150 Balance 1070 -650 -150 Intake, IV 120 Intake, Oral 1500 Number 1 Bowel Movements Output, Urine 550 650 150 Physical Exam General Appearance: Alert, Oriented X3, Cooperative, No Acute Distress Skin: No Rashes, No Breakdown HEENT: Atraumatic, PERRLA, EOMI, Mucous Membr. moist/pink Neck: Supple, No JVD Lymphatic: Cervical nl Cardiovascular: Normal S1, Normal S2 Lungs: Normal Air Movement Abdomen: Normal Bowel Sounds, Soft, No Tenderness Extremities: No Clubbing, No Cyanosis, No Edema, Normal Pulses, right medial thigh erythema Vascular: Normal Pulses, Pulses Symmetrical Current Medications: Current Medications Sig/Newton Start time Last Medication Dose Route Stop Time Status Admin Amoxicillin/ 875 MG Q12 08/30 2200 AC Clavulanate Potassium PO 09/03 1001 Ampicillin Sodium/ 3,000 MG Q6H 08/26 1500 DC 08/30 Sulbactam Sodium IV 1433 Sodium Chloride 100 ML Baclofen 10 MG 4 TIMES/DAY 08/26 1044 AC 08/30 PO 1433 Bisacodyl 5 MG DAILY PRN 08/24 161 AC PO Ibuprofen 600 MG Q6P PRN 08/24 161 AC PO Lorazepam 0 Q1P PRN 08/24 161 AC IV Morphine Sulfate 2 MG Q2P PRN 08/24 1615 AC IV Nicotine 21 MG DAILY 08/25 1000 AC 08/30 TOP 0937 Omeprazole 20 MG DAILY AC 08/24 1645 AC 08/30 PO 0520 Oxycodone/ 1 TAB Q6P PRN 08/24 1615 AC 08/30 Acetaminophen PO 0945 Oxycodone/ 2 TAB Q6P PRN 08/24 1615 AC 08/29 Acetaminophen PO 2133 Patient Medication 1 ED .STK-MED ONE 08/30 1356 DC Teaching ED 08/30 1357 Polyethylene Glycol 17 GM DAILY 08/25 1000 AC 08/29 PO 0912 Senna/Docusate Sodium 2 TAB DAILY 08/25 1047 AC 08/30 PO 0937 Sodium Hypochlorite 1 SCOTT BID 08/25 1000 AC 08/29 TOP 2250 Last 24 Hrs of Lab/[facility] Results Last 24 Hrs of Labs/Mics: Laboratory Tests 08/30/16 0700: Anion Gap 9, Estimated GFR > 60, BUN/Creatinine Ratio 18.6, CBC w Diff NO MAN DIFF REQ, RBC 4.81, MCV 79.0 L, MCH 26.3 L, RDW 14.1, MPV 8.0, Gran % 82.0 H, Lymphocytes % 10.7 L, Monocytes % 5.3, Eosinophils % 1.9, Basophils % 0.1, Absolute Granulocytes 6.9 H, Absolute Lymphocytes 0.9 L, Absolute Monocytes 0.4, Absolute Eosinophils 0.2, Absolute Basophils 0, PUBS MCHC 33.3 Assessment/Plan Assessment: Mr. Mcgee is 60-year-old male with past medical history significant for chronic alcoholism, multiple sclerosis not on chronic treatment follows up with Dr. Millard presented to the [facility] with chief complaint of bilateral leg weakness and stiffness. The patient's symptoms started on Monday08/19/16 when his leg was more week and he went to [facility] and thought to be MS exacerbation, was given IV Solu -Medrol and valium and was discharged home. Patient presented to ED on 08/22 complaining of bilateral leg weakness. Patient was found to have right-sided groin redness and swelling and a pimple which had purulent discharge. CT pelvis reveled emphysema of the medial right thigh. 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 ID and surgical consultation was obtained immediately. Patient had surgical debridement on 08/22, tolerated well with no significant events, was extubated this morning 08/23, saturating well on room air 97%. Patient was started on vancomycin and meropenem. CT pelvis 08/22 IMPRESSION: Skin thickening, subcutaneous tissue edema and emphysema of the medial right thigh. Findings suggest presence of cellulitis and necrotizing fasciitis. There is no focal, walled off fluid collection. Mild reactive lymphadenopathy is present in the right groin. Problem list #Pedro's gangrene #Alcohol withdrawal #Multiple sclerosis #Thrombocytopenia #Transaminitis #Pedro's gangrene/Progressive cellulitis status post I&D of right inner thigh/groin abscess/necrotizing fasciitis Patient presented to ED on 08/22 complaining of bilateral leg weakness. Patient was found to have right-sided groin redness and swelling and a pimple which had purulent discharge. CT pelvis reveled emphysema of the medial right thigh. 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 ID and surgical consultation was obtained immediately. Patient had surgical debridement on 08/22, tolerated well with no significant events, was extubated on 08/23. He was in ICU for 1 day after surgical debridement. * Transferred to general medicine floor from ICU on 08/23/2016 * Status post debridement on 08/22 and 08/24 * OR cultures growing gram-positive cocci, gram-negative rods and gram-positive rods-MSSA,ENTEROCOCCUS. * on IV meropenem and vancomycin for 5days. * He received IV Unasyn-5days. * Started on Augmentin-825 mg twice a day for 4 more days. * ID recommendations appreciated * Optimal pain ibuprofen 600 for mild, Percocet 1 tab for moderate, Percocet 2 tabs for severe pain * We d/c Ridley catheter and central line * Monitor for fever, leukocytosis * wound granulated well. VAC applied at bedside on 08/31/15. Change to be performed . * Discharge planning for /Monday. #Alcohol withdrawal -CIWA protocol scores zero. ciwa continued #Multiple sclerosis -Not on any medication for MS -called Dr. Millard's office for message that patient was admitted -Continue home medication baclofen -Patient was complaining muscle spasms of right leg, Dr. JUAREZ was consulted -We'll follow up neurology recommendations #Thrombocytopenia -Could be sepsis related versus alcoholism -No signs of active bleeding -Continue to monitor platelets #Transaminitis -AST 65, ALT 110, total troponin 2.1, direct 0.5, albumin 2.3, INR 1.25 -Repeat liver function test- improved Right ankle pain IMPRESSION: Mild lateral swelling. No acute osseous abnormality. Small plantar heel spur. Diet regular DVT prophlaxis Alps Code Full Problem List: 1. 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 Acute necrotizing fasciitis s/p emergent debridemnet x2 2. History of multiple sclerosis 3. Alcohol dependence 4. History of MS 5. Leukocytosis 6. anemia post-op acute blood loss anemia 7. Constipation PLAN surgery , ID following , abx , catheter reomved as per ID/surgery. cont current care, wound care had wound vac today as per surgery. bowel regimen with bowel movement+. reinforced patient current management plan. supportive care for MS, resume home meds. f/u neurology. gi/dvt prophylaxis full code. d/c planning as per surgery /mon plan of care d/mon patient.
[2016-08-30 07:30] VITALS: BP 100/60
[2016-08-30 08:01] LABS: ABSOLUTE BASOPHIL COUNT 0 /CUMM (0.0-0.2); ABSOLUTE EOSINOPHIL COUNT 0.2 /CUMM (0.0-0.7); ABSOLUTE GRANULOCYTE CT 6.9 /CUMM (1.4-6.5); ABSOLUTE LYMPH COUNT 0.9 /CUMM (1.2-3.4); ABSOLUTE MONOCYTE COUNT 0.4 /CUMM (0.10-0.60); BASOPHIL % 0.1 % (0.0-2.0); EOSINOPHIL % 1.9 % (0-5); MEAN CORPUSCULAR HGB 26.3 PG (27.0-31.0); MEAN CORPUSCULAR HGB CONC 33.3 G/DL (33.0-37.0); PLATELET COUNT 242 /CUMM (130-400); RBC DISTRIBUTION WIDTH 14.1 % (11.5-14.5); RED BLOOD CELL CT 4.81 /CUMM (4.70-6.10); WHITE BLOOD CELL COUNT 8.4 /CUMM (4.8-10.8)
--- NOTE | 2016-08-30 09:19 | PN- General Surgery ---
Surgical Brief Attending Note Brief Attending Note: wound granulated well. VAC applied at bedside. Change to be performed . Discharge planning for /Monday.
--- NOTE | 2016-08-30 13:49 | PN- Infect Dx ---
Subjective Subjective: Afebrile without complaints Objective Last 24 Hrs of Vital Signs/I&O Vital Signs Date Time Temp Pulse Resp B/P B/P Pulse O2 O2 Flow FiO2 Mean Ox Delivery Rate 08/30 1158 Room Air Room Air 08/30 0730 98.7 61 20 100/60 96 Room Air 08/29 2257 97.9 64 20 130/60 95 Room Air 08/29 1533 99.2 73 20 128/66 98 Intake & Output 08/30 1600 08/30 0800 08/30 0000 Intake Total Output Total 650 150 Balance -650 -150 Output, Urine 650 150 Physical Exam Other Physical Findings: He appears comfortable in no acute distress Extremities wound VAC in place in the right inner thigh, with no surrounding erythema; wound reportedly granulating well Results Last 24 Hours of Lab Results: Laboratory Tests 08/30 0700 Chemistry Sodium (137 - 145 mmol/L) 135 L Potassium (3.5 - 5.1 mmol/L) 4.0 Chloride (98 - 107 mmol/L) 103 Carbon Dioxide (22 - 30 mmol/L) 24 Anion Gap (5 - 16) 9 BUN (9 - 20 mg/dL) 13 Creatinine (0.7 - 1.2 mg/dL) 0.7 Estimated GFR (>60 ml/min) > 60 BUN/Creatinine Ratio (7 - 25 %) 18.6 Hematology CBC w Diff NO MAN DIFF REQ WBC (4.8 - 10.8 /CUMM) 8.4 RBC (4.70 - 6.10 /CUMM) 4.81 Hgb (14.0 - 18.0 G/DL) 12.6 L Hct (42 - 52 %) 38.0 L MCV (80.0 - 94.0 FL) 79.0 L MCH (27.0 - 31.0 PG) 26.3 L RDW (11.5 - 14.5 %) 14.1 Plt Count (130 - 400 /CUMM) 242 MPV (7.4 - 10.4 FL) 8.0 Gran % (42.2 - 75.2 %) 82.0 H Lymphocytes % (20.5 - 51.1 %) 10.7 L Monocytes % (1.7 - 9.3 %) 5.3 Eosinophils % (0 - 5 %) 1.9 Basophils % (0.0 - 2.0 %) 0.1 Absolute Granulocytes (1.4 - 6.5 /CUMM) 6.9 H Absolute Lymphocytes (1.2 - 3.4 /CUMM) 0.9 L Absolute Monocytes (0.10 - 0.60 /CUMM) 0.4 Absolute Eosinophils (0.0 - 0.7 /CUMM) 0.2 Absolute Basophils (0.0 - 0.2 /CUMM) 0 PUBS MCHC (33.0 - 37.0 G/DL) 33.3 Last 24 Hours of [place] Results: Blood culture August 22 positive for probable anaerobic gram positive cocci Assessment/Plan Impression: Doing well with temperatures and white blood cell count normal on Unasyn status post debridement of the perineum, skin and subcutaneous tissue 6 days ago for progressive cellulitis now 8 days status post I&D of a right inner thigh/groin abscess consistent with Pedro's gangrene, with Staph aureus and Enterococcus isolated from the OR cultures and an anaerobic gram-positive cocci isolated from the blood. Suggestion: 1. Discontinue Unasyn and begin Augmentin 875 mg po every 12 hours for 4 more days of antibiotics
[2016-08-30 14:19] VITALS: BP 120/60
--- NOTE | 2016-08-30 16:43 | NUR ---
wound care: NIYA tarango assisted nby this service writer this am with wound vac trouble shooting to obtain seal - vac dressing due to be changes thurs or fri as per surgery discretion
--- NOTE | 2016-08-30 21:00 | Discharge Summary ---
Visit Information Visit Dates Admission Date: 08/22/16 Discharge Date: 09/01/16 Hospital Course Course Attending Physician: ANDRE FABIAN MD Primary Care Physician: GREY ALANIZ MD Consulting Request: 1 Consulting Specialty: Infectious Disease Consulting Request: 2 Consulting Specialty: General Surgery Hospital Course: This is a 60-year-old gentleman with PMH significant for multiple sclerosis vcurrently on no treatment, ETOH abuse who presented to the [place] ED with increasing right leg pain. The patient was seen in the emergency room 3 days prior to admission because of the acute onset of pain in the right inner thigh, which he thought was a pimple, and difficulty walking, apparently treated with Solumedrol and discharged on prednisone for a presumed flareup of his multiple sclerosis. On examination he was febrile to 101.3 and was found to have a large area of erythema in the right groin. Laboratory data revealed a white blood cell count of 18,000, with 84 segs and 9 bands, BUN/creatinine 15 and 0.7, bilirubin 3.7, AST/ALT 103 and 144, INR 1.25/ PTT normal. Urinalysis 10-15 RBC/rare WBCs. CT of the pelvis revealed skin thickening, subcutaneous tissue edema and subcutaneous gas in the proximal, medial right thigh extending to the right gluteal fold posteriorly, overlying the distal right gluteus dash muscle. Chest x-ray was negative. He was given doses of Unasyn, Clindamycin and Vancomycin and was taken to the OR for debridement/drainage. The following problems were addressed during the course of his hospital stay: #Pedro's gangrene/Progressive cellulitis status post I&D of right inner thigh/groin abscess/necrotizing fasciitis: ID and surgical consultation were obtained immediately. Patient had surgical debridement on 08/22, tolerated well with no significant events, was extubated on 08/23. He was in ICU for 1 day after surgical debridement and was transferred to general medicine floor from ICU on 08/23/2016. Had another debridement on 08/24. Was on IV meropenem and vancomycin for 5 days, received IV Unasyn-5 days. Was started on Augmentin-825 mg twice a day; to receive 2 more days of AB therapy upon discharge. * OR cultures growing gram-positive cocci, gram-negative rods and gram-positive rods-MSSA,ENTEROCOCCUS. * Wound granulated well. VAC applied at bedside on 08/31/15. Changed on 09/01/16. #H/O ETOH abuse: Was on CIWA protocol. Scored 0 throughout his hospital stay. #Multiple sclerosis Not on any medication for MS. Neurologist, Dr. Millard was informed of this admission. Was maintained on home medication of baclofen. #Thrombocytopenia-Resolved: Plt of 31 on admission, improved to 242 (08/30/16) Did not have any signs of active bleeding #Transaminitis-Resolved. LFTs frequently checked during hospital stay. Recheck on 08/25/2016 revealed that transaminitis resolved: Total bilirubin 1, direct bilirubin 0.3, AST 30, ALT 67, alkaline phosphatase 76. #DVT PPX: ALPS given thrombocytopenia on admission. #Code status: Full code. #Patient was seen and examined on the day of discharge on 09/01/16; stable for discharge to rehab. Complications: None Allergies: Coded Allergies: No Known Allergies (08/22/16) Significant Procedures: 08/22/16 Debridement perineum, excisional skin, sq, fascia and muscle. 08/24/16 Debridement(excisional) perineum, skin, sq tissue. Disposition Summary Disposition Principal Diagnosis: Pedro's gangrene/Progressive cellulitis status post I&D of right inner thigh /groin abscess/necrotizing fasciitis Additional Diagnosis: MS Discharge Disposition: SNF Discharge Instructions General Discharge Information Code Status: Full Code Patient's Diet: Regular Patient's Activity: As tolerated. Follow-Up Instructions/Appts: Please f/u pcp in 1-2 weeks Please f/u , surgeon in 2weeks Please f/u in 2 weeks Needs wound vac on monday 3times a week Medications at Discharge Discharge Medications: Continue taking these medications: Baclofen (Baclofen) 10 MG TABLET 1 Tablet ORAL 4 TIMES A DAY Start taking the following new medications: Amoxicillin/Clavulanate Potass (Amox-Clav 875-125 MG Tablet) 875 MG-125 MG TABLET 1 Tablet ORAL TWICE DAILY Days = 2 No Refills Bisacodyl (Bisacodyl) 5 MG TABLET. 5 Milligram ORAL DAILY as needed for CONSTIPATION Qty = 15 No Refills Omeprazole (Omeprazole) 20 MG CAPSULE.DR 20 Milligram ORAL DAILY BEFORE BREAKFAST Qty = 30 No Refills Polyethylene Glycol 3350 (Miralax) 17 GRAM/DOSE POWDER 17 Gram ORAL DAILY as needed for CONSTIPATION Qty = 10 No Refills Copies To: CORBIN DYE,GREY Callejas
[2016-08-30 22:02] VITALS: BP 130/60
[2016-08-31 06:31] VITALS: BP 150/70
--- NOTE | 2016-08-31 07:20 | PN- General Surgery ---
See Addendum Subjective Subjective: No acute overnight events reported. Patient resting comfortably. No c/o chest pain, sob, difficulty breathing, nausea or vomitting. Pain under control. Tolerating wound vac. Objective Vital Signs and I&Os Vital Signs Date Time Temp Pulse Resp B/P B/P Pulse O2 O2 Flow FiO2 Mean Ox Delivery Rate 08/31 0531 98.6 66 20 150/70 95 Room Air 08/30 2202 98.9 63 20 130/60 96 Room Air 08/30 1419 98.2 77 20 120/60 96 08/30 1158 Room Air Room Air 08/30 0730 98.7 61 20 100/60 96 Room Air Intake & Output 08/31 0800 08/31 0000 08/30 1600 08/30 0800 08/30 0000 08/29 1600 Intake Total 1620 720 Output Total 225 330 550 650 150 500 Balance -225 -330 1070 -650 -150 220 Intake, IV 120 Intake, Oral 1500 720 Number 1 Bowel Movements Output, 80 Drainage Output, Urine 225 250 550 650 150 500 Physical Exam: General: AAO x3, no acute distress Cardiac: RRR, s1s2 Pulm: Non labored respiratory effort, cta bilaterally Abd: Non-tender Extremities: Distal sensation intact, skin warm, bilateral calves soft and non- tender Wound: Wound vac holding suction, serosanguinous drainage, no purulence, erythema distal to wound resolved Assessment/Plan Assessment/Plan This is a 60 year old male Hospital day 9 for fourniers gangrene, s/p I&D x2 and wound vac placement one day ago. -Continue vac therapy, wound vac to be changed tomorrow () at bedside -Possible d/c to str or monday -Continue abx per ID, unasyn -Continue diet as tolerated Will d/w Dr. Hernandez
--- NOTE | 2016-08-31 07:32 | PN- Housestaff ---
CHUCK REYNOLDS 08/31/16 0732: Subjective Follow-up For: #Pedro's gangrene #Alcohol withdrawal #Multiple sclerosis #Thrombocytopenia #Transaminitis Complaints: pain scale (0-10) Subjective: Patient was seen and examined this morning. He is alert awake and oriented to time place and person. No acute events were noticed overnight. He denies any pain -right medial thigh at the site of debridement Denies any fever, chills. Denies any nausea, vomiting, abdominal pain, chest pain or difficulty breathing. Vitals stable afebrile heart rate 66, respiratory rate 20, blood pressure 154/70 , saturating at 98% on room air. Patient with complaints of spasm in the medial right thigh and right leg - on baclofen now. waiting for recommendations Review of Systems Constitutional: Denies: chills, diaphoresis, fever. Objective Last 24 Hrs of Vital Signs/I&O Vital Signs Date Time Temp Pulse Resp B/P B/P Pulse O2 O2 Flow FiO2 Mean Ox Delivery Rate 08/31 0924 Room Air Room Air 08/31 0631 98.6 66 20 150/70 95 Room Air 08/30 2202 98.9 63 20 130/60 96 Room Air 08/30 1419 98.2 77 20 120/60 96 08/30 1158 Room Air Room Air Intake & Output 08/31 1600 08/31 0800 08/31 0000 Intake Total Output Total 450 420 330 Balance -450 -420 -330 Output, 80 Drainage Output, Other 45 Output, Urine 450 375 250 Physical Exam General Appearance: Alert, Oriented X3, Cooperative, No Acute Distress Skin: No Rashes, right medial thigh- debrided HEENT: Atraumatic, PERRLA Neck: Supple, No JVD Lymphatic: Cervical nl Cardiovascular: Normal S1, Normal S2 Lungs: Normal Air Movement Abdomen: Normal Bowel Sounds, Soft, No Tenderness Extremities: No Clubbing, No Cyanosis, No Edema Current Medications: Current Medications Sig/Newton Start time Last Medication Dose Route Stop Time Status Admin Amoxicillin/ 875 MG Q12 08/30 2200 AC 08/31 Clavulanate Potassium PO 09/03 1001 1006 Ampicillin Sodium/ 3,000 MG Q6H 08/26 1500 DC 08/30 Sulbactam Sodium IV 1433 Sodium Chloride 100 ML Baclofen 10 MG 4 TIMES/DAY 08/26 1044 AC 08/31 PO 1006 Bisacodyl 5 MG DAILY PRN 08/24 1615 AC PO Ibuprofen 600 MG Q6P PRN 08/24 161 AC PO Lorazepam 0 Q1P PRN 08/24 1615 AC IV Morphine Sulfate 2 MG Q2P PRN 08/24 1615 AC IV Nicotine 21 MG DAILY 08/25 1000 AC 08/30 TOP 0937 Omeprazole 20 MG DAILY AC 08/24 1645 AC 08/31 PO 0552 Oxycodone/ 1 TAB Q6P PRN 08/24 1615 AC 08/30 Acetaminophen PO 1930 Oxycodone/ 2 TAB Q6P PRN 08/24 1615 AC 08/29 Acetaminophen PO 2133 Patient Medication 1 ED .STK-MED ONE 08/30 1356 DC Teaching ED 08/30 1357 Polyethylene Glycol 17 GM DAILY 08/25 1000 AC 08/29 PO 0912 Senna/Docusate Sodium 2 TAB DAILY 08/25 1047 AC 08/30 PO 0937 Sodium Hypochlorite 1 SCOTT BID 08/25 1000 DC 08/29 TOP 2250 Assessment/Plan Assessment: Mr. Mcgee is 60-year-old male with past medical history significant for chronic alcoholism, multiple sclerosis not on chronic treatment follows up with Dr. Millard presented to the [facility] with chief complaint of bilateral leg weakness and stiffness. The patient's symptoms started on Monday08/19/16 when his leg was more week and he went to [facility] and thought to be MS exacerbation, was given IV Solu -Medrol and valium and was discharged home. Patient presented to ED on 08/22 complaining of bilateral leg weakness. Patient was found to have right-sided groin redness and swelling and a pimple which had purulent discharge. CT pelvis reveled emphysema of the medial right thigh. 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 ID and surgical consultation was obtained immediately. Patient had surgical debridement on 08/22, tolerated well with no significant events, was extubated this morning 08/23, saturating well on room air 97%. Patient was started on vancomycin and meropenem. CT pelvis 08/22 IMPRESSION: Skin thickening, subcutaneous tissue edema and emphysema of the medial right thigh. Findings suggest presence of cellulitis and necrotizing fasciitis. There is no focal, walled off fluid collection. Mild reactive lymphadenopathy is present in the right groin. Problem list #Pedro's gangrene #Alcohol withdrawal #Multiple sclerosis #Thrombocytopenia #Transaminitis #Pedro's gangrene/Progressive cellulitis status post I&D of right inner thigh/groin abscess/necrotizing fasciitis Patient presented to ED on 08/22 complaining of bilateral leg weakness. Patient was found to have right-sided groin redness and swelling and a pimple which had purulent discharge. CT pelvis reveled emphysema of the medial right thigh. 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 ID and surgical consultation was obtained immediately. Patient had surgical debridement on 08/22, tolerated well with no significant events, was extubated on 08/23. He was in ICU for 1 day after surgical debridement. * Transferred to general medicine floor from ICU on 08/23/2016 * Status post debridement on 08/22 and 08/24 * OR cultures growing gram-positive cocci, gram-negative rods and gram-positive rods-MSSA,ENTEROCOCCUS. * on IV meropenem and vancomycin for 5days. * He received IV Unasyn-5days. * Started on Augmentin-825 mg twice a day for 4 more days.day2 * ID recommendations appreciated * Optimal pain ibuprofen 600 for mild, Percocet 1 tab for moderate, Percocet 2 tabs for severe pain * We d/c Ridley catheter and central line * Monitor for fever, leukocytosis * wound granulated well. VAC applied at bedside on 08/31/15. Change to be performed 09/01/16. * Discharge planning to str for /Monday. #Alcohol withdrawal -CIWA protocol scores zero. ciwa continued #Multiple sclerosis -Not on any medication for MS -called Dr. Millard's office for message that patient was admitted -Continue home medication baclofen -Patient was complaining muscle spasms of right leg, Dr. JUAREZ was consulted -We'll follow up neurology recommendations #Thrombocytopenia resolved -Could be sepsis related versus alcoholism -No signs of active bleeding -Continue to monitor platelets #Transaminitis resolved -AST 65, ALT 110, total troponin 2.1, direct 0.5, albumin 2.3, INR 1.25 -Repeat liver function test- improved Right ankle pain IMPRESSION: Mild lateral swelling. No acute osseous abnormality. Small plantar heel spur. Diet regular DVT prophlaxis Alps Code Full Problem List: 1. 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 Pain Ratin Pain Location: right leg spasms Pain Goal: Remain pain free Pain Plan: morphine baclofen Tomorrow's Labs & Rationales: none Consulting Request: Consulting Specialty: General Surgery ANDRE FABIAN 08/31/16 1102: Attending MD Review Statement Attending Statement Attending MD Statement: examined this patient, discuss w/resident/PA/STRAIGHT RULING MACHINE OPERATOR, agreed w/resident/PA/STRAIGHT RULING MACHINE OPERATOR, discussed with family, reviewed EMR data (avail), discussed with nursing, discussed with case mgmt, reviewed images, amended to note Attending Assessment/Plan: Assessment 1. Acute necrotizing fasciitis s/p emergent debridemnet x2 2. History of multiple sclerosis 3. Alcohol dependence 4. History of MS 5. Leukocytosis 6. anemia post-op acute blood loss anemia 7. Constipation PLAN surgery , ID following , abx , catheter reomved as per ID/surgery. cont current care, wound care had wound vac as per surgery. bowel regimen with bowel movement+. reinforced patient current management plan. supportive care for MS, resume home meds. f/u neurology. gi/dvt prophylaxis full code. d/c planning as per surgery thurs/fri, f/u surgery about wound vac protocol. plan of care d/mon patient
[2016-08-31] MEDS ORDERED: BISACODYL5 M1 PO (07:44)
[2016-08-31] MEDS ORDERED: OMEPRAZOLE20 M2 PO (07:44)
[2016-08-31] MEDS ORDERED: AMOX-CLAV 875-1 EACH PO (07:44)
[2016-08-31] MEDS ORDERED: MIRALAX119 GM PO (07:44)
--- NOTE | 2016-08-31 07:50 | Patient Discharge Instructions ---
Discharge Instructions General Discharge Information You were seen/treated for: #Pedro's gangrene #Alcohol withdrawal #Multiple sclerosis #Thrombocytopenia #Transaminitis You had these procedures: Surgical debridement twice Wound VAC placement Special Instructions: please f/u pcp in 1-2 weeks please f/u , surgeon in 2weeks please f/u in 2 weeks needs woundvac on monday 3times a week Diet Continue normal diet: Yes Activity Activity Self Limited: Yes Acute Coronary Syndrome Inclusion Criteria At DC or during hospital stay patient has or had the following: ACS DIAGNOSIS No Discharge Core Measures Meds if any: Prescribed or Continued at Discharge Meds if any: NOT Prescribed or Continued at Discharge Congestive Heart Failure Inclusion Criteria At DC or during hospital stay patient has or had the following: CHF DIAGNOSIS No Discharge Core Measures Meds if any: Prescribed or Continued at Discharge Meds if any: NOT Prescribed or Continued at Discharge Cerebrovascular accident Inclusion Criteria At DC or during hospital stay patient has or had the following: CVA/TIA Diagnosis No Discharge Core Measures Meds if any: Prescribed or Continued at Discharge Meds if any: NOT Prescribed or Continued at Discharge Venous thromboembolism Inclusion Criteria VTE Diagnosis No VTE Type NONE VTE Confirmed by (Test) NONE Discharge Core Measures - Per Current guidelines, there needs to be overlap - treatment for the first 5 days of Warfarin therapy. - If discharged on Warfarin prior to 5 days of - overlap therapy, the patient will need to be - assessed for post discharge needs including - *Post discharge parental anticoagulation - *Warfarin and/or parental anticoagulation education - *Follow up date to check INR post discharge At least 5 days overlap therapy as Inpatient No Meds if any: Prescribed or Continued at Discharge Note: Overlap Therapy is Warfarin and Anticoagulant Meds if any: NOT Prescribed or Continued at Discharge
[2016-08-31 14:37] VITALS: BP 150/80
[2016-08-31 22:26] VITALS: BP 128/66
[2016-09-01 05:49] VITALS: BP 130/62
--- NOTE | 2016-09-01 07:46 | PN- General Surgery ---
See Addendum Subjective Subjective: No acute events reported overnight. Patient acknowledges discomfort to the right leg stating mostly that it feels tight from inactivity and awkward placement of wound vac. He denies acute pain. He denies chest pain, shortness of breath and difficulty breathing. He denies nausea and vomitting. No difficulty voiding. Objective Vital Signs and I&Os Vital Signs Date Time Temp Pulse Resp B/P B/P Pulse O2 O2 Flow FiO2 Mean Ox Delivery Rate 09/01 0549 98.8 69 20 130/62 95 Room Air 08/31 2226 98.6 72 20 128/66 94 Room Air 08/31 1437 99.2 73 20 150/80 95 08/31 0924 Room Air Room Air Intake & Output 09/01 0809/01 0000 08/31 1600 08/31 0800 08/31 0000 08/30 1600 Intake Total 550 1620 Output Total 325 100 650 420 330 550 Balance -325 -100 -100 -420 -330 1070 Intake, IV 120 Intake, Oral 550 1500 Number 1 Bowel Movements Output, 50 80 Drainage Output, Other 45 Output, Urine 275 100 650 375 250 550 General: Alert and oriented x3, no acute distress Cardiac: RRR, s1s2 Pulm: CTA bilaterally, non labored respiratory effort Adomen: Non-distended Extremities: Moves all extremities, distal sensation intact. Skin warm and well pefused. Wound vac in place, suction appears to be lessening versus one day ago but still tight. Erythema distal to wound resolved. Drainage serosanguinous. Bilateral calves soft and non-tender. 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 Doing well. -Wound vac change today -Okay from surgical standpoint to discharge to str today
--- NOTE | 2016-09-01 08:30 | PN- Housestaff ---
CHUCK REYNOLDS 09/01/16 0830: Subjective Follow-up For: #Pedro's gangrene #Alcohol withdrawal #Multiple sclerosis #Thrombocytopenia #Transaminitis Complaints: pain scale (0-10) Subjective: Patient was seen and examined this morning. He is alert awake and oriented to time place and person. No acute events were noticed overnight. He denies any pain -right medial thigh at the site of debridement Denies any fever, chills. Denies any nausea, vomiting, abdominal pain, chest pain or difficulty breathing. Vitals stable afebrile heart rate 66, respiratory rate 20, blood pressure 154/70 , saturating at 98% on room air. Patient with complaints of spasm in the medial right thigh and right leg - on baclofen now. will follow up recommendations Review of Systems Constitutional: Denies: chills, diaphoresis, fever, malaise. Objective Last 24 Hrs of Vital Signs/I&O Vital Signs Date Time Temp Pulse Resp B/P B/P Pulse O2 O2 Flow FiO2 Mean Ox Delivery Rate 09/01 1443 98.2 80 20 120/70 09/01 1407 98.2 80 20 120/70 98 09/01 0913 Room Air Room Air 09/01 0549 98.8 69 20 130/62 95 Room Air 08/31 2226 98.6 72 20 128/66 94 Room Air Intake & Output 09/01 1600 09/01 0800 09/01 0000 Intake Total 720 Output Total 600 475 100 Balance 120 -475 -100 Intake, Oral 720 Number 2 Bowel Movements Output, 50 Drainage Output, Urine 600 425 100 Physical Exam General Appearance: Alert, Oriented X3, Cooperative, No Acute Distress Skin: No Rashes, No Breakdown HEENT: Atraumatic, PERRLA, EOMI, Mucous Membr. moist/pink Neck: Supple, No JVD, No thryomegaly Lymphatic: Cervical nl Cardiovascular: Normal S1, Normal S2 Lungs: Normal Air Movement Abdomen: Normal Bowel Sounds, Soft, No Tenderness Extremities: No Clubbing, No Cyanosis, No Edema Vascular: Normal Pulses, Pulses Symmetrical Current Medications: Current Medications Sig/Newton Start time Last Medication Dose Route Stop Time Status Admin Amoxicillin/ 875 MG Q12 08/300 AC 09/01 Clavulanate Potassium PO 09/03 1001 0917 Baclofen 10 MG 4 TIMES/DAY 08/26 1044 AC 09/01 PO 1300 Bisacodyl 5 MG DAILY PRN 08/24 1615 AC PO Ibuprofen 600 MG Q6P PRN 08/24 161 AC PO Lorazepam 0 Q1P PRN 08/24 1615 DC IV Morphine Sulfate 2 MG Q2P PRN 08/24 1615 DC IV Nicotine 21 MG DAILY 08/25 1000 AC 08/30 TOP 0937 Omeprazole 20 MG DAILY AC 08/24 1645 AC 09/01 PO 0558 Oxycodone/ 1 TAB Q6P PRN 08/24 1615 DC 08/31 Acetaminophen PO 1240 Oxycodone/ 2 TAB Q6P PRN 08/24 1615 DC 08/29 Acetaminophen PO 2133 Patient Medication 1 ED .STK-MED ONE 09/01 1334 DC Teaching ED 09/01 1335 Polyethylene Glycol 17 GM DAILY 08/25 1000 AC 08/29 PO 0912 Senna/Docusate Sodium 2 TAB DAILY 08/25 1047 AC 08/30 PO 0937 Assessment/Plan Assessment: Mr. Mcgee is 60-year-old male with past medical history significant for chronic alcoholism, multiple sclerosis not on chronic treatment follows up with Dr. Millard presented to the [facility] with chief complaint of bilateral leg weakness and stiffness. The patient's symptoms started on Monday08/19/16 when his leg was more week and he went to [facility] and thought to be MS exacerbation, was given IV Solu -Medrol and valium and was discharged home. Patient presented to ED on 08/22 complaining of bilateral leg weakness. Patient was found to have right-sided groin redness and swelling and a pimple which had purulent discharge. CT pelvis reveled emphysema of the medial right thigh. 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 ID and surgical consultation was obtained immediately. Patient had surgical debridement on 08/22, tolerated well with no significant events, was extubated this morning 08/23, saturating well on room air 97%. Patient was started on vancomycin and meropenem. CT pelvis 08/22 IMPRESSION: Skin thickening, subcutaneous tissue edema and emphysema of the medial right thigh. Findings suggest presence of cellulitis and necrotizing fasciitis. There is no focal, walled off fluid collection. Mild reactive lymphadenopathy is present in the right groin. Problem list #Pedro's gangrene #Alcohol withdrawal #Multiple sclerosis #Thrombocytopenia #Transaminitis #Pedro's gangrene/Progressive cellulitis status post I&D of right inner thigh/groin abscess/necrotizing fasciitis Patient presented to ED on 08/22 complaining of bilateral leg weakness. Patient was found to have right-sided groin redness and swelling and a pimple which had purulent discharge. CT pelvis reveled emphysema of the medial right thigh. 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 ID and surgical consultation was obtained immediately. Patient had surgical debridement on 08/22, tolerated well with no significant events, was extubated on 08/23. He was in ICU for 1 day after surgical debridement. * Transferred to general medicine floor from ICU on 08/23/2016 * Status post debridement on 08/22 and 08/24 * OR cultures growing gram-positive cocci, gram-negative rods and gram-positive rods-MSSA,ENTEROCOCCUS. * on IV meropenem and vancomycin for 5days. * He received IV Unasyn-5days. * Started on Augmentin-825 mg twice a day for 2 more days. * ID recommendations appreciated * Optimal pain ibuprofen 600 for mild, Percocet 1 tab for moderate, Percocet 2 tabs for severe pain * We d/c Ridley catheter and central line * Monitor for fever, leukocytosis * wound granulated well. VAC applied at bedside on 08/31/15. Change to be performed 09/01/16. * Discharge planning to str for . #Alcohol withdrawal -CIWA protocol scores zero. ciwa continued #Multiple sclerosis -Not on any medication for MS -called Dr. Millard's office for message that patient was admitted -Continue home medication baclofen -Patient was complaining muscle spasms of right leg, Dr. JUAREZ was consulted -We'll follow up neurology recommendations #Thrombocytopenia resolved -Could be sepsis related versus alcoholism -No signs of active bleeding -Continue to monitor platelets #Transaminitis resolved -AST 65, ALT 110, total troponin 2.1, direct 0.5, albumin 2.3, INR 1.25 -Repeat liver function test- improved Right ankle pain IMPRESSION: Mild lateral swelling. No acute osseous abnormality. Small plantar heel spur. Diet regular DVT prophlaxis Alps Code Full Problem List: 1. 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 Acute necrotizing fasciitis s/p emergent debridemnet x2 2. History of multiple sclerosis 3. Alcohol dependence 4. History of MS 5. Leukocytosis 6. anemia post-op acute blood loss anemia 7. Constipation PLAN surgery , ID , abx , catheter reomved as per ID/surgery. cont current care, wound care had wound vac as per surgery. bowel regimen with bowel movement+. reinforced patient current management plan. supportive care for MS, resume home meds. f/u neurology. gi/dvt prophylaxis full code. d/c planning today to rehab with wound care, f/u o/p PCP, wound care, Surgery in 1-2 weeks. plan of care d/wed patient
--- NOTE | 2016-09-01 12:24 | PN- Infect Dx ---
Subjective Subjective: Afebrile without complaints Objective Last 24 Hrs of Vital Signs/I&O Vital Signs Date Time Temp Pulse Resp B/P B/P Pulse O2 O2 Flow FiO2 Mean Ox Delivery Rate 09/01 0913 Room Air Room Air 09/01 0549 98.8 69 20 130/62 95 Room Air 08/31 2226 98.6 72 20 128/66 94 Room Air 08/31 1437 99.2 73 20 150/80 95 Intake & Output 09/01 1600 09/01 0800 09/01 0000 Intake Total Output Total 475 100 Balance -475 -100 Output, 50 Drainage Output, Urine 425 100 Physical Exam Other Physical Findings: He appears comfortable in no acute distress Extremities wound VAC in place over the right inner thigh, with no erythema Results Last 24 Hours of Lab Results: No recent labs Last 24 Hours of [place] Results: No recent cultures Assessment/Plan Impression: Stable with temperatures and white blood cell count normal now on Augmentin status post debridement of the perineum, skin and subcutaneous tissue 8 days ago for progressive cellulitis now 10 days status post I&D of a right inner thigh/ groin abscess consistent with Pedro's gangrene, with Staph aureus and Enterococcus isolated from the OR cultures and an anaerobic gram-positive cocci isolated from the blood. Suggestion: 1. Continue Augmentin for 2 more days
[2016-09-01 14:07] VITALS: BP 120/70
[2016-09-01 14:43] VITALS: BP 120/70
== END 2016-09-01 17:35 | DRG 853 ==
LOC: ERH 12:06 → ER-OR 12:41 → ENRESERV 18:56 → CRI 19:48 → 2NA 08-23 16:48 → ENPENDDIS 09-01 14:31 → 2NA 09-01 17:35
PROVIDERS: Emergency Medicine; Internal Medicine; Internal Medicine Nephrology; Student in an Organized Health Care Education/Training Program; ADMIT Surgery
PROC: 0KBM0ZZ Excision of Perineum Muscle, Open Approach (ICD-10-PCS; principal; 2016-08-22)
PROC: 0JBB0ZZ Excision of Perineum Subcutaneous Tissue and Fascia, Open Approach (ICD-10-PCS; 2016-08-26)
DX: A41.9 Sepsis, unspecified organism (principal); M72.6 Necrotizing fasciitis; D69.6 Thrombocytopenia, unspecified; E87.1 Hypo-osmolality and hyponatremia; D62 Acute posthemorrhagic anemia; L03.115 Cellulitis of right lower limb; G35 Multiple sclerosis; F10.239 Alcohol dependence with withdrawal, unspecified; N49.3 Fournier gangrene; E87.6 Hypokalemia; F17.200 Nicotine dependence, unspecified, uncomplicated; R59.1 Generalized enlarged lymph nodes; K59.00 Constipation, unspecified
CPT/HCPCS: 2NASP; 87070; 87075; 87184; CCU; 36415; 73610-RT; 81001; 82436; 87040; 87071; 87086; 87147; 88304; 93005; 93010; 96365; 96374; 97110-GO; 97112-GO; 97116-GO; 97161-GP; 97530-GO; 99291; G0480; J1170; J1720; J1940; J2185; J2250; J3010; J3370; J7040; J7042